=== PATIENT | male | born 1990 | race Caucasian/White ===

== ENCOUNTER 2018-11-04 00:24 | Inpatient (IN) | payer MEDICARE, MEDICAID ==
[2018-11-04] MEDS ORDERED: Sodium Chloride 0.9% 1,000 ML IV ONE (00:37)
[2018-11-04] MEDS ORDERED: HYDROmorphone 1 mg/mL 1mL Syr IV ONE (00:37)
--- NOTE | 2018-11-04 00:39 | ED Physician Chart ---
ED Chief Complaint/HPI - Patient Information Date Seen:: 11/04/18 Time Seen:: 00:30 Chief Complaint:: Abdominal Pain History of Present Illness:: onset x one day of abdominal pain, N/V/D; pt denies trauma, H/As, neck pain, C/P , SOB, A/C, fever, chills, or urinary s/s Allergies:: Allergies Allergy/AdvReac Type Severity Reaction Status Date / Time diazepam [From Valium] Allergy Verified 11/04/18 00:34 fentanyl Allergy Verified 11/04/18 00:34 haloperidol [From Haldol] Allergy Verified 11/04/18 00:34 ketorolac [From Toradol] Allergy Verified 11/04/18 00:34 morphine Allergy Verified 11/04/18 00:34 Historian:: Patient Review:: Nurse's Note Reviewed, Old Chart Reviewed ED Review of Systems - Review of Systems General/Constitutional: No fever, No chills, No weight loss, No weakness, No diaphoresis, No edema, No loss of appetite Skin: No skin lesions, No rash, No bruising Head: No headache, No light-headedness Eyes: No loss of vision, No pain, No diplopia ENT: No earache, No nasal drainage, No sore throat, No tinnitus Neck: No neck pain, No swelling, No thyromegaly, No stiffness, No mass noted Cardio Vascular: No chest pain, No palpitations, No PND, No orthopnea, No edema Pulmonary: No SOB, No cough, No sputum, No wheezing GI: Nausea, Vomiting, Diarrhea, Pain, No melena, No hematochezia, No constipation, No hematemesis G/U: No dysuria, No frequency, No hematuria, No nacturia Musculoskeletal: No bone or joint pain, No back pain, No muscle pain Endocrine: No polyuria, No polydipsia Psychiatric: No prior psych history, No depression, No anxiety, No suicidal ideation, No homicidal ideation, No auditory hallucination, No visual hallucination Hematopoietic: No bruising, No lymphadenopathy Allergic/Immuno: No urticaria, No angioedema Neurological: No syncope, No focal symptoms, No weakness, No paresthesia, No headache, No seizure, No dizziness, No confusion, No vertigo ED Past Medical History - Past Medical History Obtainable: Yes Past Medical History: HTN, DM, Dyslipidemia, ESRD Family History: Diabetes Melitus, HTN Social History: Smoker, Alcohol, No Drug Use, Single Surgical History: None Psychiatricy History: None Medication: Reviewed Family Medical History - Family Member Mother History Unknown: Yes ED Physical Exam - Physical Examination General/Constitutional: Awake, Well-developed, well-nourished, Alert, No distress, GCS 15, Non-toxic appearing, Ambulatory Head: Atraumatic Eyes: Lids, conjuctiva normal, PERRL, EOMI Skin: Nl inspection, No rash, No skin lesions, No ecchymosis, Well hydrated, No lymphadenopathy ENMT: External ears, nose nl, TM canals nl, Nasal exam nl, Lips, teeth, gums nl , Oropharynx nl, Tonsils nl Neck: Nontender, Full ROM w/o pain, No JVD, No nuchal rigidity, No bruit, No mass, No stridor Other Neck comments:: supple; no meningeal signs; no cervical tenderness; no bruits Respiratory: Nl effort/Exclusion, Clear to Auscultation, No Wheeze/Rhonchi/Rales Cardio Vascular: RRR, No murmur, gallop, rubs, NL S1 S2, Carotid/Femoral/Distal pulses equal bilaterally GI: No tenderness/rebounding/guarding, No organomegaly, No hernia, Normal BS's, Nondistended, No mass/bruits, No McBurney tenderness Other GI comments:: no pulsatile masses : No CVA tenderness Extremities: No tenderness or effusion, Full ROM, normal strength in all extremities, No edema, Normal digits & nails Neuro/Psych: Alert/oriented, DTR's symmetric, Normal sensory exam, Normal motor strength, Judgement/insight normal, Mood normal, Normal gait, No focal deficits Misc: Normal back, No paraspinal tenderness ED Labs/Radiology/EKG Results - Lab Results Comments:: Reviewed - Radiology Results Comments:: CXR: CM; CHF - EKG Interpretations EKG Time:: 01:02 Rate & Rhythm: 76; NSR Comments:: LVH; non-specific st-t changes ED Septic Shock - . Is Septic Shock (SBP<90, OR Lactate>4 mmol\L) present?: No ED Reassessment (Disposition) - Reassessment Reassessment Condition:: Improved - Diagnosis Diagnosis:: Abdominal Pain; N/V/D; AGE; ESRD; DM; HTN; CHF; Uncontrolled HTN - Aftercare/Follow up Instructions Aftercare/Follow-Up Instructions:: Counseled pt regarding lab results/diagnosis & need follow up, Counseled pt & family regarding lab results/diagnosis & need follow up - Patient Disposition Discharge/Transfer:: Acute Care w/in this hosp Accepting Physician:: Dr. Johnson Time Called:: 0200 Time Responded:: 02:00 Admitted to:: Telemetry Spoke to:: Dr. Johnson Admitting Medical Physician:: Dr. Johnson Condition at Disposition:: Stable, Improved
[2018-11-04] MEDS ORDERED: HYDROmorphone 1 mg/mL 1mL Syr ONE (00:46)
[2018-11-04] MEDS ORDERED: NITROGLYCERIN OINT 2% 1 INCH PACKET TP STA (00:57)
[2018-11-04 01:00] LABS: % BASOPHILS 0.6 % (0.0-2.0); % EOSINOPHILS 0.4 % (0.0-5.0); % LYMPHOCYTES 21.5 % (20.0-50.0); % MONOCYTES 7.4 % (2.0-10.0); % NEUTROPHILS 70.1 % (40.0-80.0); BASOPHILE ABSOLUTE 0.1 Th/cumm (0-0.2); HEMATOCRIT 33.6 % (41.0-60); HEMOGLOBIN 11.1 gm/dL (12-16); LYMPHOCYTE ABSOLUTE 2.1 Th/cmm (1.5-3.0); MEAN CORPUSCULAR HEMOGLOBIN 30.3 pg (26.0-30.0); MEAN CORPUSCULAR HGB CONC 32.9 pg (28.0-36.0); MEAN PLATELET VOLUME 7.7 fl; MONOCYTE ABSOLUTE 0.7 Th/cmm (0.3-1.0); NEUTROPHILE ABSOLUTE 6.8 Th/cmm (1.8-8.0); PLATELET COUNT 281 Th/cmm (150-400); RED BLOOD COUNT 3.65 Mil/cmm (4.30-5.70); RED CELL DISTRIBUTION WIDTH 14.3 % (11.5-20.0); WHITE BLOOD COUNT 9.7 Th/cmm (4.8-10.8)
[2018-11-04] MEDS ORDERED: NITROGLYCERIN OINT 2% 1 INCH PACKET TP ONE (01:03)
[2018-11-04 01:17] LABS: AMYLASE SERUM 32 U/L (29-103); LIPASE 20 U/L (11-82)
[2018-11-04 01:19] LABS: ALB/GLOB RATIO 1.3 (1.0-1.8); ALBUMIN 4.4 gm/dL (4.2-5.5); ANION GAP 23.6 (7.0-16.0); BILIRUBIN,TOTAL 0.5 mg/dL (0.3-1.0); CALCIUM SERUM 9.2 mg/dL (8.6-10.3); CARBON DIOXIDE 22.2 mEq/L (21.0-31.0); GFR AFRICAN-AMERICAN 8.8 ml/min (>90); GFR NON AFRICAN-AMERICAN 7.3 ml/min; POTASSIUM SERUM 4.8 mEq/L (3.5-5.1); TOTAL PROTEIN,SERUM 7.9 gm/dL (6.0-8.3)
[2018-11-04 01:21] LABS: CREATININE - SERUM 9.1 mg/dL (0.7-1.3); INR 0.96 (0.5-1.4)
[2018-11-04 03:35] VITALS: BP 217/125
[2018-11-04] MEDS: HYDROmorphone 1 mg/mL 1mL Syr IVP PRN ×5 (04:02→20:37)
[2018-11-04] MEDS ORDERED: Pneumococcal Vaccine 0.5 mL Vial IM ONE (05:49)
[2018-11-04] MEDS ORDERED: GLUCAGON HCl 1 MG KIT IM PRN (09:01)
[2018-11-04] MEDS ORDERED: Dextrose 50% 50 mL Abboject IVP PRN (09:01)
--- NOTE | 2018-11-04 09:03 | Diagnostic Imaging Report ---
Exam: Chest x-ray HISTORY: Congestion Findings: Frontal examination of chest reviewed, no prior studies available comparison. The study demonstrates cardiomegaly with superimposed congestive heart failure changes. The costophrenic angles are clear, no acute pulmonic tracer identified. Left subclavian catheter terminates in superior vena cava. Bony thorax is intact. IMPRESSION: Cardiomegaly, congestive heart failure.
--- NOTE | 2018-11-04 09:13 | History and Physical ---
History of Present Illness - HPI Chief Complaint: Abdominal pain, nausea and vomit HPI: Patient refer that x one day he has having upper abdominal pain, nausea and vomit. During ER evaluation high BP was found Vital Signs: Last Vital Signs Temp 98.1 F 11/04/18 04:30 Pulse 72 11/04/18 08:18 Resp 18 11/04/18 04:30 BP 183/106 11/04/18 04:30 Pulse Ox 99 11/04/18 04:30 Past Medical History Cardiovascular: Report: CAD, HTN Pulmonary: Report: No Pertinent Hx PLANNING INTERN: Report: No Pertinent Hx GI: Report: Gastritis Psych: Report: No Pertinent Hx Musculoskeletal: Report: No Pertinent Hx Rheumatologic: Report: No pertinent Hx Infectious Disease: Report: No Pertinent Hx Renal/: Report: Chronic Renal Insuff (on HD) Endocrine: Report: Diabetes Dermatology: Report: No Pertinent Hx - Past Surgical History Past Surgical History: No pertinent Hx Family Medical History - Family Member Mother History Unknown: Yes Social History Smoke: No Alcohol: None Drugs: Other (Addicted to prescribed medication (opiates)) Lives: With Family Domestic Violence: Negative - Medications Home Medications: Home Medication Medication Instructions Recorded Type HYDROmorphone [Dilaudid*] 2 mg PO Q4HR PRN 11/04/18 History Metoprolol Tartrate 50 mg PO DAILY 11/04/18 History Ondansetron [Zofran ODT] 4 mg PO Q6HR PRN 11/04/18 History Pantoprazole [Protonix] 40 mg PO DAILY 11/04/18 History Sitagliptin Phosphate [Januvia] 25 mg PO DAILY 11/04/18 History - Allergies Allergies/Adverse Reactions: Allergies Allergy/AdvReac Type Severity Reaction Status Date / Time diazepam [From Valium] Allergy Verified 11/04/18 00:34 fentanyl Allergy Verified 11/04/18 00:34 haloperidol [From Haldol] Allergy Verified 11/04/18 00:34 ketorolac [From Toradol] Allergy Verified 11/04/18 00:34 morphine Allergy Verified 11/04/18 00:34 Review of Systems - Review of Systems Constitutional: Report: Weakness Eyes: Report: Other (Patient is legally bliond) ENT: Report: No Significant Respiratory: Report: No Significant Cardiovascular: Report: No Significant Gastrointestinal: Report: Abdominal Pain Genitourinary: Report: Other (ESRD) Musculoskeletal: Report: No Significant Skin: Report: No Significant Neurological: Report: No Significant Physical Exam - Physical Exam HEENT: Report: Other (Patient is blind) Neck: Report: Within normal limits Cardiovascular Systems: Report: Regular, Rate and Rhythm Respiratory: Report: Breath Sounds are within normal limits Abdomen: Report: Tender to palpation, Other (in epigastry) Back: Report: Inspection of back is within normal limits. Extremities: Report: Non-tender to palpation. Skin: Report: Color of skin is within normal limits Neuro/Psych: Report: Mood affect is within normal limits - Lab Results All Lab Results last 24 hours: Laboratory Results - last 24 hr 11/04/18 11/04/18 11/04/18 00:45 00:45 00:45 WBC 9.7 RBC 3.65 L Hgb 11.1 L Hct 33.6 L MCV 92.0 MCH 30.3 H MCHC Differential 32.9 RDW 14.3 Plt Count 281 MPV 7.7 Neutrophils % 70.1 Lymphocytes % 21.5 Monocytes % 7.4 Eosinophils % 0.4 Basophils % 0.6 PT 10.0 INR 0.96 Sodium 132 L Potassium 4.8 Chloride 91 L Carbon Dioxide 22.2 Anion Gap 23.6 H BUN 43 H Creatinine 9.1 H* Est GFR ( Amer) 8.8 Est GFR (Non-Af Amer) 7.3 BUN/Creatinine Ratio 4.7 Glucose 140 H Calcium 9.2 Total Bilirubin 0.5 AST 8 L ALT 7 Alkaline Phosphatase 153 H Creatine Kinase 33 Troponin I B-Natriuretic Peptide Total Protein 7.9 Albumin 4.4 Globulin 3.5 Albumin/Globulin Ratio 1.3 Triglycerides 150 Cholesterol 135 LDL Cholesterol Direct 91 HDL Cholesterol 31 Amylase Lipase 11/04/18 11/04/18 11/04/18 00:45 00:45 00:45 WBC RBC Hgb Hct MCV MCH MCHC Differential RDW Plt Count MPV Neutrophils % Lymphocytes % Monocytes % Eosinophils % Basophils % PT INR Sodium Potassium Chloride Carbon Dioxide Anion Gap BUN Creatinine Est GFR ( Amer) Est GFR (Non-Af Amer) BUN/Creatinine Ratio Glucose Calcium Total Bilirubin AST ALT Alkaline Phosphatase Creatine Kinase Troponin I 0.02 B-Natriuretic Peptide 769.0 H Total Protein Albumin Globulin Albumin/Globulin Ratio Triglycerides Cholesterol LDL Cholesterol Direct HDL Cholesterol Amylase 32 Lipase 20 - Assessment Assessment: Patient is awake, alert, in some distress due to pain. Dx: Uncontrolled BP, Gastritis, ESRD on HD, DM, Blind - Plan Plan: Patient is in clonidine and amlodipine, Pantoprazole IV, Dilaudid, Insulin sliding scale, consult with Nephrology request for HD. Will continue to monitor
--- NOTE | 2018-11-04 10:19 | Diagnostic Imaging Report ---
Exam: CT examination abdomen pelvis. HISTORY: Abdominal pain Total DLP equals 920 CTDI equals 17.3 Findings: Multiple contiguous thin section of the abdomen pelvis obtained from lower thorax to pubic symphysis without the administration of oral or intravenous contrast material therefore the study somewhat limited The study demonstrates normal aeration of lung parenchyma the bases. The liver and spleen are intact. The gallbladder is distended. The kidneys demonstrate no evidence of obstructive uropathy or nephrolithiasis. Renal vascular calcifications are noted. The pancreas is intact. The appendix is normal. There is evidence of diverticulosis of the colon without diverticulitis. No free fluid is noted. The urinary bladder demonstrates thickening of the urinary bladder wall most likely due to underdistention. Deformity of left femoral head appreciated. IMPRESSION: Diverticulosis of colon, no evidence of diverticulitis. No evidence of obstructive uropathy. Appendix is intact.
[2018-11-04] MEDS: INSULIN LISPRO SLIDING SCALE 100 UNITS/ML UNIT SUBQ SCH ×2 (12:25→19:05)
[2018-11-04] MEDS ORDERED: Heparin Sod 1,000 Units/mL 10ml HD ONE (20:00)
[2018-11-05] MEDS: HYDROmorphone 1 mg/mL 1mL Syr IVP PRN ×6 (00:26→20:12)
[2018-11-05] MEDS: INSULIN LISPRO SLIDING SCALE 100 UNITS/ML UNIT SUBQ SCH ×4 (00:26→18:31)
[2018-11-05 06:34] LABS: % BASOPHILS 0.7 % (0.0-2.0); % EOSINOPHILS 0.7 % (0.0-5.0); % LYMPHOCYTES 23.2 % (20.0-50.0); % MONOCYTES 7.8 % (2.0-10.0); % NEUTROPHILS 67.6 % (40.0-80.0); HEMATOCRIT 30.8 % (41.0-60); HEMOGLOBIN 10.5 gm/dL (12-16); LYMPHOCYTE ABSOLUTE 1.6 Th/cmm (1.5-3.0); MEAN CELL VOLUME 93.7 fl (80-99); MEAN CORPUSCULAR HEMOGLOBIN 31.8 pg (26.0-30.0); MEAN CORPUSCULAR HGB CONC 33.9 pg (28.0-36.0); MEAN PLATELET VOLUME 7.4 fl; MONOCYTE ABSOLUTE 0.5 Th/cmm (0.3-1.0); NEUTROPHILE ABSOLUTE 4.8 Th/cmm (1.8-8.0); PLATELET COUNT 260 Th/cmm (150-400); RED BLOOD COUNT 3.29 Mil/cmm (4.30-5.70); RED CELL DISTRIBUTION WIDTH 13.9 % (11.5-20.0); WHITE BLOOD COUNT 6.9 Th/cmm (4.8-10.8)
[2018-11-05 06:58] LABS: ALB/GLOB RATIO 1.2 (1.0-1.8); ALBUMIN 3.7 gm/dL (4.2-5.5); ANION GAP 16.6 (7.0-16.0); BILIRUBIN,TOTAL 0.5 mg/dL (0.3-1.0); CALCIUM SERUM 8.8 mg/dL (8.6-10.3); CARBON DIOXIDE 28.8 mEq/L (21.0-31.0); GFR AFRICAN-AMERICAN 11.8 ml/min (>90); GFR NON AFRICAN-AMERICAN 9.7 ml/min; POTASSIUM SERUM 4.4 mEq/L (3.5-5.1); TOTAL PROTEIN,SERUM 6.7 gm/dL (6.0-8.3)
[2018-11-05 07:19] LABS: CREATININE - SERUM 7.1 mg/dL (0.7-1.3)
--- NOTE | 2018-11-05 08:39 | Consultation ---
Consult Note - Consult Note Service Date: 11/05/18 Consult Note: PHYSICIAN Consultation Note: Date of Admission: 11/04/18 Purpose of Consultation: ESRD Chief Complaint: Abdominal pain History of Present Illness: Patient BJ DAVENPORT was admitted to [facility] Telemetry with UNCONTROLLED HYPERTENSION. 28 YO M with hx of ESRD on HD, DM, gastroparesis, chronic pain presenting with abdominal pain, nausea, vomiting for the past day. Patient has had history for several admissions for uncontrolled hypertension as well as abdominal pain. Patient currently on dialysis TTS at [facility]. He received dialysis yesterday, Past Medical History: Diagnoses TYPE 2 DIABETES MELLITUS WITHOUT COMPLICATIONS (11/04/18) UNSPECIFIED VISUAL LOSS (11/04/18) ESSENTIAL (PRIMARY) HYPERTENSION (11/04/18) GASTRITIS, UNSPECIFIED, WITHOUT BLEEDING (11/04/18) END STAGE RENAL DISEASE (11/04/18) WEAKNESS (11/04/18) DEPENDENCE ON RENAL DIALYSIS (11/04/18) Allergies Allergy/AdvReac Type Severity Reaction Status Date / Time diazepam [From Valium] Allergy Verified 11/04/18 00:34 fentanyl Allergy Verified 11/04/18 00:34 haloperidol [From Haldol] Allergy Verified 11/04/18 00:34 ketorolac [From Toradol] Allergy Verified 11/04/18 00:34 morphine Allergy Verified 11/04/18 00:34 Vital Signs Temp 98.2 F 11/05/18 00:00 Pulse 68 11/05/18 08:18 Resp 18 11/05/18 04:00 BP 200/114 11/05/18 08:18 Pulse Ox 99 11/05/18 00:00 Intake & Output 11/04/18 11/05/18 11/05/18 18:59 06:59 18:59 Intake Total 480 340 Output Total 0 Balance 480 340 Weight (lbs) 119.748 kg 118.388 kg Intake: Oral 480 340 Output: Urine 0 Other: # Voids 3 # Bowel Movements 0 0 Weight Source Bedscale Bedscale Laboratory Results - last 24 hr 11/04/18 11/04/18 11/04/18 12:21 19:03 23:28 WBC RBC Hgb Hct MCV MCH MCHC Differential RDW Plt Count MPV Neutrophils % Lymphocytes % Monocytes % Eosinophils % Basophils % Sodium Potassium Chloride Carbon Dioxide Anion Gap BUN Creatinine Est GFR ( Amer) Est GFR (Non-Af Amer) BUN/Creatinine Ratio Glucose POC Glucose 122 H 123 H 117 H Calcium Total Bilirubin AST ALT Alkaline Phosphatase Total Protein Albumin Globulin Albumin/Globulin Ratio 11/05/18 11/05/18 11/05/18 06:17 06:20 06:20 WBC 6.9 RBC 3.29 L Hgb 10.5 L Hct 30.8 L MCV 93.7 MCH 31.8 H MCHC Differential 33.9 RDW 13.9 Plt Count 260 MPV 7.4 Neutrophils % 67.6 Lymphocytes % 23.2 Monocytes % 7.8 Eosinophils % 0.7 Basophils % 0.7 Sodium 136 Potassium 4.4 Chloride 95 L Carbon Dioxide 28.8 Anion Gap 16.6 H BUN 26 H Creatinine 7.1 H* Est GFR ( Amer) 11.8 Est GFR (Non-Af Amer) 9.7 BUN/Creatinine Ratio 3.7 Glucose 158 H POC Glucose 144 H Calcium 8.8 Total Bilirubin 0.5 AST 8 L ALT 6 L Alkaline Phosphatase 131 H Total Protein 6.7 Albumin 3.7 L Globulin 3.0 Albumin/Globulin Ratio 1.2 Home Medication Medication Instructions Recorded Type HYDROmorphone [Dilaudid*] 2 mg PO Q4HR PRN 11/04/18 History Metoprolol Tartrate 50 mg PO DAILY 11/04/18 History Ondansetron [Zofran ODT] 4 mg PO Q6HR PRN 11/04/18 History Pantoprazole [Protonix] 40 mg PO DAILY 11/04/18 History Sitagliptin Phosphate [Januvia] 25 mg PO DAILY 11/04/18 History Current Medications Generic Name Dose Route Start Last Admin Trade Name Freq PRN Reason Stop Dose Admin Amlodipine Besylate 10 mg 11/04/18 09:00 11/05/18 08:18 Norvasc PO 01/03/19 08:59 10 mg DAILY MIRANDA Administration Dextrose 50 ml 11/04/18 09:01 D50w IVP 01/03/19 09:00 PRN PRN Blood Glucose less than 70 Dextrose 18.75 gm 11/04/18 09:01 Glutose 40% PO 01/03/19 09:00 UD PRN Blood Glucose less than 70 Glucagon 1 mg 11/04/18 09:01 Glucagen IM 01/03/19 09:00 PRN PRN Blood Glucose less than 70 Hydromorphone HCl 1 mg 11/04/18 01:57 11/05/18 08:26 Dilaudid IVP 01/03/19 01:59 1 mg Q4H PRN Administration Pain (Severe) Insulin Human Lispro 0 units 11/04/18 12:00 11/05/18 06:29 Humalog Insulin Sliding Scale SUBQ 01/03/19 11:59 Not Given Q6HR MIRANDA Protocol Ondansetron HCl 4 mg 11/04/18 01:57 11/05/18 08:25 Zofran IV 01/03/19 01:59 4 mg Q4H PRN Administration Nausea Pantoprazole Sodium 40 mg 11/04/18 09:15 11/05/18 08:18 Protonix IVP 01/03/19 09:14 40 mg DAILY MIRANDA Administration Review of Systems: A 12 point ROS was reviewed with the pertinent positive and negatives noted in the HPI. Social History Smoking Status Smoker, status unknown Family Medical History Family Medical History Start: 11/04/18 02: 37 Freq: ONCE Status: Active Protocol: Document 11/04/18 02:55 MARIAH (Rec: 11/04/18 03:52 MARIAH [id number]) Family Medical History Mother History Unknown Yes Physical Exam: General: Weak HEENT: Membranes moist Neck: Supple Cardio: RRR Respiratory: Decreased Abdominal: Tender Extremities: No edema Neurological: non focal Assessment: 1. Abdominal pain seconddary to diabetic gastroparesis 2. ESRD on HD 3. Hypertension, elevated 4. Anemia of chronic renal disease 5. DM I with renal manifestation 6. DM retinopathy 7. Chronic pain Plan: -Continue pain control, advance diet as tolerated -Additional HD today -Add Clonidine 0.1mg TID for HTN Thank you Dr. Johnson for this consult, we will continue to follow daily Signed, Ganesh Muller [id number]
--- NOTE | 2018-11-05 08:56 | General Progress Note ---
Subjective - Review of Systems Service Date: 11/05/18 Subjective: Pain is less Objective - Results Result Diagrams: 11/06/18 06:00 11/06/18 06:00 Recent Labs: Laboratory Last Values WBC 6.9 Th/cmm (4.8-10.8) 11/05/18 06:20 RBC 3.29 Mil/cmm (4.30-5.70) L 11/05/18 06:20 Hgb 10.5 gm/dL (12-16) L 11/05/18 06:20 Hct 30.8 % (41.0-60) L 11/05/18 06:20 MCV 93.7 fl (80-99) 11/05/18 06:20 MCH 31.8 pg (26.0-30.0) H 11/05/18 06:20 MCHC Differential 33.9 pg (28.0-36.0) 11/05/18 06:20 RDW 13.9 % (11.5-20.0) 11/05/18 06:20 Plt Count 260 Th/cmm (150-400) 11/05/18 06:20 MPV 7.4 fl 11/05/18 06:20 Neutrophils % 67.6 % (40.0-80.0) 11/05/18 06:20 Lymphocytes % 23.2 % (20.0-50.0) 11/05/18 06:20 Monocytes % 7.8 % (2.0-10.0) 11/05/18 06:20 Eosinophils % 0.7 % (0.0-5.0) 11/05/18 06:20 Basophils % 0.7 % (0.0-2.0) 11/05/18 06:20 PT 10.0 SECONDS (9.5-11.5) 11/04/18 00:45 INR 0.96 (0.5-1.4) 11/04/18 00:45 Sodium 136 mEq/L (136-145) 11/05/18 06:20 Potassium 4.4 mEq/L (3.5-5.1) 11/05/18 06:20 Chloride 95 mEq/L (98-107) L 11/05/18 06:20 Carbon Dioxide 28.8 mEq/L (21.0-31.0) 11/05/18 06:20 Anion Gap 16.6 (7.0-16.0) H 11/05/18 06:20 BUN 26 mg/dL (7-25) H 11/05/18 06:20 Creatinine 7.1 mg/dL (0.7-1.3) H* 11/05/18 06:20 Est GFR ( Amer) 11.8 ml/min (>90) 11/05/18 06:20 Est GFR (Non-Af Amer) 9.7 ml/min 11/05/18 06:20 BUN/Creatinine Ratio 3.7 11/05/18 06:20 Glucose 158 mg/dL (70-105) H 11/05/18 06:20 POC Glucose 144 MG/DL (70 - 105) H 11/05/18 06:17 Calcium 8.8 mg/dL (8.6-10.3) 11/05/18 06:20 Total Bilirubin 0.5 mg/dL (0.3-1.0) 11/05/18 06:20 AST 8 U/L (13-39) L 11/05/18 06:20 ALT 6 U/L (7-52) L 11/05/18 06:20 Alkaline Phosphatase 131 U/L (34-104) H 11/05/18 06:20 Creatine Kinase 33 U/L (30-223) 11/04/18 00:45 Troponin I 0.02 ng/mL (0.01-0.05) 11/04/18 00:45 B-Natriuretic Peptide 769.0 pg/mL (5.0-100.0) H 11/04/18 00:45 Total Protein 6.7 gm/dL (6.0-8.3) 11/05/18 06:20 Albumin 3.7 gm/dL (4.2-5.5) L 11/05/18 06:20 Globulin 3.0 gm/dL 11/05/18 06:20 Albumin/Globulin Ratio 1.2 (1.0-1.8) 11/05/18 06:20 Triglycerides 150 mg/dL (<150) 11/04/18 00:45 Cholesterol 135 mg/dL (<200) 11/04/18 00:45 LDL Cholesterol Direct 91 mg/dL (75-193) 11/04/18 00:45 HDL Cholesterol 31 mg/dL (23-92) 11/04/18 00:45 Amylase 32 U/L (29-103) 11/04/18 00:45 Lipase 20 U/L (11-82) 11/04/18 00:45 - Physical Exam Vitals and I&O: Vital Signs Temp 98.2 F 11/05/18 00:00 Pulse 68 11/05/18 08:18 Resp 18 11/05/18 04:00 BP 200/114 11/05/18 08:18 Pulse Ox 99 11/05/18 00:00 Intake & Output 11/04/18 11/05/18 11/05/18 18:59 06:59 18:59 Intake Total 480 340 Output Total 0 Balance 480 340 Weight (lbs) 119.748 kg 118.388 kg Intake: Oral 480 340 Output: Urine 0 Other: # Voids 3 # Bowel Movements 0 0 Weight Source Bedscale Bedscale Active Medications: Current Medications Amlodipine Besylate (Norvasc) 10 mg PO DAILY [facility] Stop: 01/03/19 08:59 Last Admin: 11/05/18 08:18 Dose: 10 mg Dextrose (D50w) 50 ml IVP PRN PRN PRN Reason: Blood Glucose less than 70 Stop: 01/03/19 09:00 Dextrose (Glutose 40%) 18.75 gm PO UD PRN PRN Reason: Blood Glucose less than 70 Stop: 01/03/19 09:00 Glucagon (Glucagen) 1 mg IM PRN PRN PRN Reason: Blood Glucose less than 70 Stop: 01/03/19 09:00 Hydromorphone HCl (Dilaudid) 1 mg IVP Q4H PRN PRN Reason: Pain (Severe) Stop: 01/03/19 01:59 Last Admin: 11/05/18 08:26 Dose: 1 mg Insulin Human Lispro (Humalog Insulin Sliding Scale) 0 units SUBQ Q6HR [facility]; Protocol Stop: 01/03/19 11:59 Last Admin: 11/05/18 06:29 Dose: Not Given Ondansetron HCl (Zofran) 4 mg IV Q4H PRN PRN Reason: Nausea Stop: 01/03/19 01:59 Last Admin: 11/05/18 08:25 Dose: 4 mg Pantoprazole Sodium (Protonix) 40 mg IVP DAILY [facility] Stop: 01/03/19 09:14 Last Admin: 11/05/18 08:18 Dose: 40 mg General: Alert, Oriented x3, No acute distress HEENT: Atraumatic Cardiovascular: Regular rate Lungs: Clear to auscultation Abdomen: Bowel sounds, Soft, Other (Tender in epygastri) Extremities: Other (No edema) Neurological: Other (Unstable gait) Skin: Other (Warm) Psych/Mental Status: Mental status NL Assessment/Plan - Assessment Assessment: Patient is awake, alert, in no distress. BP continue high. Dx: Uncontrolled BP, Gastritis, ESRD on HD, DM, Blind, CHF - Plan Plan: Patient is in clonidine and amlodipine, Pantoprazole IV, Dilaudid, Insulin sliding scale, Follow by Nephrology. Case discussed with nephrology and one extra HD will be done today. Will continue to monitor
[2018-11-05 13:21] LABS: URINE SOURCE CLEAN C
[2018-11-05 13:22] LABS: URINE BILIRUBIN NEGATIVE (NEGATIVE); URINE BLOOD NEGATIVE (NEGATIVE); URINE GLUCOSE (UA) 250 mg/dL (NEGATIVE); URINE KETONE NEGATIVE (NEGATIVE); URINE LEUKOCYTE ESTERASE NEGATIVE (NEGATIVE); URINE NITRATE NEGATIVE (NEGATIVE); URINE PROTEIN >=300 mg/dL (NEGATIVE); URINE UROBILINOGEN 0.2 E.U./dL (0.2 - 1.0)
[2018-11-05 13:33] LABS: URINE CLARITY HAZY (CLEAR); URINE COLOR YELLOW; URINE MICROSCOPIC INDICATED? YES
[2018-11-05 13:34] LABS: URINE BACTERIA FEW /hpf (NONE SEEN); URINE EPITHELIAL CELLS MODERATE /lpf (FEW); URINE RBC 0-2 /hpf (0-5)
[2018-11-06] MEDS: HYDROmorphone 1 mg/mL 1mL Syr IVP PRN ×4 (00:01→12:03)
[2018-11-06] MEDS: INSULIN LISPRO SLIDING SCALE 100 UNITS/ML UNIT SUBQ SCH ×2 (00:03→06:13)
[2018-11-06 06:32] LABS: % BASOPHILS 0.9 % (0.0-2.0); % EOSINOPHILS 0.9 % (0.0-5.0); % LYMPHOCYTES 28.6 % (20.0-50.0); % MONOCYTES 9.6 % (2.0-10.0); BASOPHILE ABSOLUTE 0.1 Th/cumm (0-0.2); EOSINOPHILE ABSOLUTE 0.1 Th/cmm (0.1-0.4); HEMATOCRIT 32.7 % (41.0-60); HEMOGLOBIN 10.7 gm/dL (12-16); LYMPHOCYTE ABSOLUTE 2.3 Th/cmm (1.5-3.0); MEAN CELL VOLUME 94.4 fl (80-99); MEAN CORPUSCULAR HEMOGLOBIN 30.8 pg (26.0-30.0); MEAN CORPUSCULAR HGB CONC 32.6 pg (28.0-36.0); MEAN PLATELET VOLUME 7.5 fl; MONOCYTE ABSOLUTE 0.8 Th/cmm (0.3-1.0); NEUTROPHILE ABSOLUTE 4.9 Th/cmm (1.8-8.0); PLATELET COUNT 310 Th/cmm (150-400); RED BLOOD COUNT 3.46 Mil/cmm (4.30-5.70); WHITE BLOOD COUNT 8.2 Th/cmm (4.8-10.8)
[2018-11-06 07:11] LABS: ALB/GLOB RATIO 1.2 (1.0-1.8); ALBUMIN 3.8 gm/dL (4.2-5.5); ANION GAP 14.4 (7.0-16.0); BILIRUBIN,TOTAL 0.5 mg/dL (0.3-1.0); CALCIUM SERUM 8.9 mg/dL (8.6-10.3); CARBON DIOXIDE 29.8 mEq/L (21.0-31.0); GFR AFRICAN-AMERICAN 13.2 ml/min (>90); GFR NON AFRICAN-AMERICAN 10.9 ml/min; POTASSIUM SERUM 4.2 mEq/L (3.5-5.1); TOTAL PROTEIN,SERUM 6.9 gm/dL (6.0-8.3)
[2018-11-06 07:33] LABS: CREATININE - SERUM 6.4 mg/dL (0.7-1.3)
--- NOTE | 2018-11-06 09:16 | Discharge Summary ---
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 Laboratory Findings: Laboratory Results - last 24 hr 11/05/18 11/05/18 11/05/18 12:33 13:05 17:42 WBC RBC Hgb Hct MCV MCH MCHC Differential RDW Plt Count MPV Neutrophils % Lymphocytes % Monocytes % Eosinophils % Basophils % Sodium Potassium Chloride Carbon Dioxide Anion Gap BUN Creatinine Est GFR ( Amer) Est GFR (Non-Af Amer) BUN/Creatinine Ratio Glucose POC Glucose 114 H 162 H Calcium Total Bilirubin AST ALT Alkaline Phosphatase Total Protein Albumin Globulin Albumin/Globulin Ratio Urine Source CLEAN C Urine Color YELLOW Urine Clarity HAZY Urine pH 8.0 Ur Specific [place] 1.015 Urine Protein >=300 Urine Glucose (UA) 250 H Urine Ketones NEGATIVE Urine Blood NEGATIVE Urine Nitrate NEGATIVE Urine Bilirubin NEGATIVE Urine Urobilinogen 0.2 Ur Leukocyte Esterase NEGATIVE Urine RBC 0-2 H Urine WBC 2-5 Ur Epithelial Cells MODERATE Urine Bacteria FEW 11/05/18 11/06/18 11/06/18 23:55 05:59 06:00 WBC 8.2 RBC 3.46 L Hgb 10.7 L Hct 32.7 L MCV 94.4 MCH 30.8 H MCHC Differential 32.6 RDW 14.0 Plt Count 310 MPV 7.5 Neutrophils % 60.0 Lymphocytes % 28.6 Monocytes % 9.6 Eosinophils % 0.9 Basophils % 0.9 Sodium Potassium Chloride Carbon Dioxide Anion Gap BUN Creatinine Est GFR ( Amer) Est GFR (Non-Af Amer) BUN/Creatinine Ratio Glucose POC Glucose 161 H 114 H Calcium Total Bilirubin AST ALT Alkaline Phosphatase Total Protein Albumin Globulin Albumin/Globulin Ratio Urine Source Urine Color Urine Clarity Urine pH Ur Specific [place] Urine Protein Urine Glucose (UA) Urine Ketones Urine Blood Urine Nitrate Urine Bilirubin Urine Urobilinogen Ur Leukocyte Esterase Urine RBC Urine WBC Ur Epithelial Cells Urine Bacteria 11/06/18 06:00 WBC RBC Hgb Hct MCV MCH MCHC Differential RDW Plt Count MPV Neutrophils % Lymphocytes % Monocytes % Eosinophils % Basophils % Sodium 135 L Potassium 4.2 Chloride 95 L Carbon Dioxide 29.8 Anion Gap 14.4 BUN 19 Creatinine 6.4 H* Est GFR ( Amer) 13.2 Est GFR (Non-Af Amer) 10.9 BUN/Creatinine Ratio 3.0 Glucose 111 H POC Glucose Calcium 8.9 Total Bilirubin 0.5 AST 9 L ALT 5 L Alkaline Phosphatase 125 H Total Protein 6.9 Albumin 3.8 L Globulin 3.1 Albumin/Globulin Ratio 1.2 Urine Source Urine Color Urine Clarity Urine pH Ur Specific [place] Urine Protein Urine Glucose (UA) Urine Ketones Urine Blood Urine Nitrate Urine Bilirubin Urine Urobilinogen Ur Leukocyte Esterase Urine RBC Urine WBC Ur Epithelial Cells Urine Bacteria Hospital Course: Patient respoded to treatment, BP improved, Pain improved, No more nausea and vomit. Treatment: Patient was admitted to Telemetry, Lock heparin, Pantoprazole, Dilaudid , HD was done, continue with home meds, follow by Renal. Condition at Discharge: Stable Disposition: PT DISCHARGED HOME Home Medications: Home Medication Medication Instructions Recorded Type HYDROmorphone [Dilaudid*] 2 mg PO Q4HR PRN 11/04/18 History Metoprolol Tartrate 50 mg PO DAILY 11/04/18 History Ondansetron [Zofran ODT] 4 mg PO Q6HR PRN 11/04/18 History Pantoprazole [Protonix] 40 mg PO DAILY 11/04/18 History Sitagliptin Phosphate [Januvia] 25 mg PO DAILY 11/04/18 History amLODIPine Besylate [Norvasc*] 10 mg PO DAILY #30 tab 11/06/18 Rx cloNIDine HCl [Catapres] 0.1 mg PO Q12HR #30 tab 11/06/18 Rx Inpatient Medications: Current Medications Amlodipine Besylate (Norvasc) 10 mg PO DAILY [facility] Stop: 01/03/19 08:59 Last Admin: 11/05/18 08:18 Dose: 10 mg Dextrose (D50w) 50 ml IVP PRN PRN PRN Reason: Blood Glucose less than 70 Stop: 01/03/19 09:00 Dextrose (Glutose 40%) 18.75 gm PO UD PRN PRN Reason: Blood Glucose less than 70 Stop: 01/03/19 09:00 Glucagon (Glucagen) 1 mg IM PRN PRN PRN Reason: Blood Glucose less than 70 Stop: 01/03/19 09:00 Hydromorphone HCl (Dilaudid) 1 mg IVP Q4H PRN PRN Reason: Pain (Severe) Stop: 01/03/19 01:59 Last Admin: 11/06/18 08:03 Dose: 1 mg Insulin Human Lispro (Humalog Insulin Sliding Scale) 0 units SUBQ Q6HR [facility]; Protocol Stop: 01/03/19 11:59 Last Admin: 11/06/18 06:13 Dose: Not Given Ondansetron HCl (Zofran) 4 mg IV Q4H PRN PRN Reason: Nausea Stop: 01/03/19 01:59 Last Admin: 11/05/18 17:34 Dose: 4 mg Pantoprazole Sodium (Protonix) 40 mg IVP DAILY [facility] Stop: 01/03/19 09:14 Last Admin: 11/05/18 08:18 Dose: 40 mg Prescriptions: cloNIDine HCl [Catapres] 0.1 mg PO Q12HR #30 tab amLODIPine Besylate [Norvasc*] 10 mg PO DAILY #30 tab Activity: As Tolerated Discharge Diet: 2 Gram Sodium Consults and Follow-Up: RADHA HERNANDEZ [Other] not on staff,PCP is [Primary Care Provider] - Consulting Speciality: Renal Instructions: Hypertension, [id number], End-Stage Kidney Disease
== END 2018-11-06 12:05 | disposition home or self-care (01) | DRG 304 ==
LOC: ER 00:24 → TELE 02:17 → OBSVTOIN 02:17 → TELE 21:02 → INTOOBSV 11-05 04:00 → OBSVTOIN 11-05 04:00
PROVIDERS: ADMIT General Practice; ATTEND General Practice
PROC: 5A1D70Z Performance of Urinary Filtration, Intermittent, Less than 6 Hours Per Day (ICD-10-PCS; principal; 2018-11-04)
PROC: 5A1D70Z Performance of Urinary Filtration, Intermittent, Less than 6 Hours Per Day (ICD-10-PCS; 2018-11-05)
DX: I16.9 Hypertensive crisis, unspecified (principal); N18.6 End stage renal disease; I50.42 Chronic combined systolic (congestive) and diastolic (congestive) heart failure; F11.20 Opioid dependence, uncomplicated; K29.70 Gastritis, unspecified, without bleeding; Z99.2 Dependence on renal dialysis; H54.7 Unspecified visual loss; E10.21 Type 1 diabetes mellitus with diabetic nephropathy; E10.319 Type 1 diabetes mellitus with unspecified diabetic retinopathy without macular edema; E10.43 Type 1 diabetes mellitus with diabetic autonomic (poly)neuropathy; K31.84 Gastroparesis; I13.2 Hypertensive heart and chronic kidney disease with heart failure and with stage 5 chronic kidney disease, or end stage renal disease; F17.210 Nicotine dependence, cigarettes, uncomplicated; K52.9 Noninfective gastroenteritis and colitis, unspecified; I25.10 Atherosclerotic heart disease of native coronary artery without angina pectoris; E10.22 Type 1 diabetes mellitus with diabetic chronic kidney disease; D63.1 Anemia in chronic kidney disease
CPT/HCPCS: 36415-UA; 71045-TC; 80053-TC; 80061-TC; 81001-TC; 82150-TC; 82550-TC; 82948-90; 83690-TC; 83880-TC; 84484-TC; 85025-TC; 85610-TC; 90799; 93005; 96374; 96375; 96376; C9113; J1170; J1644; J1940; J2405; J7030; Z7610

== ENCOUNTER 2019-03-07 16:06 | Inpatient (IN) | payer MEDICAID, MEDICARE ==
--- NOTE | 2019-03-07 17:29 | ED Physician Chart ---
ED Chief Complaint/HPI - Patient Information Date Seen:: 03/07/19 Time Seen:: 17:05 Chief Complaint:: Abdominal pain for 2 days. History of Present Illness:: Pt came in by private auto because of onset of upper abdominal pain for 2 days. Abdominal pain is characterized as constant, sharp, and localized at epigastrium. No known relieving factor, but lying down seems to worsen his abdominal pain. No fever. Pt has had intermittent N/V with vomitus consists of gastric content. No hematemesis. Last BM while pt is at the ER that is loose but nonbloody. No recent travel, antibiotic use, or ingestion of contaminated food or liquid. Allergies:: Allergies Allergy/AdvReac Type Severity Reaction Status Date / Time diazepam [From Valium] Allergy Verified 11/04/18 00:34 fentanyl Allergy Verified 11/04/18 00:34 haloperidol [From Haldol] Allergy Verified 11/04/18 00:34 ketorolac [From Toradol] Allergy Verified 11/04/18 00:34 morphine Allergy Verified 11/04/18 00:34 tramadol Allergy Verified 03/07/19 16:47 Vitals:: Vital Signs - 8 hr 03/07/19 16:49 Temp 98.5 F HR 86 RR 22 BP 114/77 O2 Sat % 99 Historian:: Patient Family MD/PCP:: Dr. 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.) ENT: No earache, No sore throat Neck: No neck pain, No swelling, No thyromegaly, No stiffness, No mass noted Cardio Vascular: No chest pain, No edema Pulmonary: No SOB, No cough, No wheezing GI: Nausea, Vomiting, Pain, No melena, No hematochezia, No constipation, No hematemesis, Other (nonbloody loose stool.) G/U: Other (Pt has ESRD with anuria.) Musculoskeletal: No bone or joint pain Psychiatric: No prior psych history Allergic/Immuno: No urticaria, No angioedema Neurological: No syncope, No focal symptoms, No headache, No confusion ED Past Medical History - Past Medical History Past Medical History: HTN, DM, ESRD (on hemodialysis.) Family History: Diabetes Melitus, Cancer (P aunt.) Social History: Non Smoker, No Alcohol, No Drug Use, Single, Lives With Parents Employment:: unemployed. Surgical History: other (Retinal surgery about 5 y/a.) Psychiatricy History: None Medication: Reviewed Family Medical History - Family Member Mother History Unknown: Yes ED Physical Exam - Physical Examination General/Constitutional: Awake, Well-developed, well-nourished (obese male), Alert, Non-toxic appearing Other Gen/Cons comments:: Breathes comfortably, speaks clearly, but is in distress due to abdominal pain. Head: Atraumatic Other Eyes comments:: Both eyes have chronic changes with blindness. Skin: No lymphadenopathy ENMT: External ears, nose nl, Nasal exam nl, Oropharynx nl Neck: Nontender, Full ROM w/o pain, No nuchal rigidity, No mass Respiratory: Nl effort/Exclusion, Clear to Auscultation, No Wheeze/Rhonchi/Rales Cardio Vascular: RRR, No murmur, gallop, rubs GI: No organomegaly, Normal BS's, Nondistended, No mass/bruits, No McBurney tenderness Other GI comments:: Obese but soft. Tenderness to palpation at epigastric region. No R/G. Abdominal exam is limited due to obesity. Neuro/Psych: Alert/oriented (oriented x 3), No focal deficits (except bilateral eye blindness.) ED Labs/Radiology/EKG Results - Lab Results Results: Laboratory Tests 03/07/19 17:10 POC Glucose 169 H Laboratory Results - last 24 hr 03/07/19 03/07/19 03/07/19 17:10 18:10 18:10 WBC 19.9 H RBC 3.67 L Hgb 11.3 L Hct 33.9 L MCV 92.4 MCH 30.9 H MCHC Differential 33.5 RDW 16.2 Plt Count 334 MPV 7.8 Add Manual Diff YES Neutrophils % CDL B DRIVER Band Neutrophils % 4 Lymphocytes % CDL B DRIVER Monocytes % CDL B DRIVER Eosinophils % CDL B DRIVER Basophils % CDL B DRIVER Neutrophils (Manual) 90 H Lymphocytes 4 L Monocytes 2 PT 9.7 INR 0.93 PTT (Actin FS) 28.8 Sodium Potassium Chloride Carbon Dioxide Anion Gap BUN Creatinine Est GFR ( Amer) Est GFR (Non-Af Amer) BUN/Creatinine Ratio Glucose POC Glucose 169 H Whole Bld Lactic Acid Calcium Total Bilirubin AST ALT Alkaline Phosphatase Total Protein Albumin Globulin Albumin/Globulin Ratio Amylase Lipase 03/07/19 03/07/19 18:10 18:10 WBC RBC Hgb Hct MCV MCH MCHC Differential RDW Plt Count MPV Add Manual Diff Neutrophils % Band Neutrophils % Lymphocytes % Monocytes % Eosinophils % Basophils % Neutrophils (Manual) Lymphocytes Monocytes PT INR PTT (Actin FS) Sodium 127 L Potassium 4.8 Chloride 92 L Carbon Dioxide 16.5 L Anion Gap 23.3 H BUN 68 H Creatinine 12.9 H* Est GFR ( Amer) 5.9 Est GFR (Non-Af Amer) 4.9 BUN/Creatinine Ratio 5.3 Glucose 147 H POC Glucose Whole Bld Lactic Acid 1.36 Calcium 8.9 Total Bilirubin 0.5 AST 9 L ALT 6 L Alkaline Phosphatase 136 H Total Protein 8.1 Albumin 4.2 Globulin 3.9 Albumin/Globulin Ratio 1.1 Amylase 28 L Lipase 16 Laboratory Last Values WBC 19.9 Th/cmm (4.8-10.8) H 03/07/19 18:10 RBC 3.67 Mil/cmm (4.30-5.70) L 03/07/19 18:10 Hgb 11.3 gm/dL (12-16) L 03/07/19 18:10 Hct 33.9 % (41.0-60) L 03/07/19 18:10 MCV 92.4 fl (80-99) 03/07/19 18:10 MCH 30.9 pg (26.0-30.0) H 03/07/19 18:10 MCHC Differential 33.5 pg (28.0-36.0) 03/07/19 18:10 RDW 16.2 % (11.5-20.0) 03/07/19 18:10 Plt Count 334 Th/cmm (150-400) 03/07/19 18:10 MPV 7.8 fl 03/07/19 18:10 Add Manual Diff YES 03/07/19 18:10 Neutrophils % CDL B DRIVER 03/07/19 18:10 Band Neutrophils % 4 % (0-10) 03/07/19 18:10 Lymphocytes % CDL B DRIVER 03/07/19 18:10 Monocytes % CDL B DRIVER 03/07/19 18:10 Eosinophils % CDL B DRIVER 03/07/19 18:10 Basophils % CDL B DRIVER 03/07/19 18:10 Neutrophils (Manual) 90 % (40-80) H 03/07/19 18:10 Lymphocytes 4 % (20-50) L 03/07/19 18:10 Monocytes 2 % (2-10) 03/07/19 18:10 PT 9.7 SECONDS (9.5-11.5) 03/07/19 18:10 INR 0.93 (0.5-1.4) 03/07/19 18:10 PTT (Actin FS) 28.8 SECONDS (26.0-38.0) 03/07/19 18:10 Sodium 127 mEq/L (136-145) L 03/07/19 18:10 Potassium 4.8 mEq/L (3.5-5.1) 03/07/19 18:10 Chloride 92 mEq/L (98-107) L 03/07/19 18:10 Carbon Dioxide 16.5 mEq/L (21.0-31.0) L 03/07/19 18:10 Anion Gap 23.3 (7.0-16.0) H 03/07/19 18:10 BUN 68 mg/dL (7-25) H 03/07/19 18:10 Creatinine 12.9 mg/dL (0.7-1.3) H* 03/07/19 18:10 Est GFR ( Amer) 5.9 ml/min (>90) 03/07/19 18:10 Est GFR (Non-Af Amer) 4.9 ml/min 03/07/19 18:10 BUN/Creatinine Ratio 5.3 03/07/19 18:10 Glucose 147 mg/dL (70-105) H 03/07/19 18:10 POC Glucose 169 MG/DL (70 - 105) H 03/07/19 17:10 Whole Bld Lactic Acid 1.36 mmol/L (0.60-1.99) 03/07/19 18:10 Calcium 8.9 mg/dL (8.6-10.3) 03/07/19 18:10 Total Bilirubin 0.5 mg/dL (0.3-1.0) 03/07/19 18:10 AST 9 U/L (13-39) L 03/07/19 18:10 ALT 6 U/L (7-52) L 03/07/19 18:10 Alkaline Phosphatase 136 U/L (34-104) H 03/07/19 18:10 Total Protein 8.1 gm/dL (6.0-8.3) 03/07/19 18:10 Albumin 4.2 gm/dL (4.2-5.5) 03/07/19 18:10 Globulin 3.9 gm/dL 03/07/19 18:10 Albumin/Globulin Ratio 1.1 (1.0-1.8) 03/07/19 18:10 Amylase 28 U/L (29-103) L 03/07/19 18:10 Lipase 16 U/L (11-82) 03/07/19 18:10 Pending lab results: blood cultures. - Radiology Results Results: CT of abdomen/pelvis: Decreased renal sizes. ASVD. NAD. Official report per Dr. Fercho Marin, radiologist. ED Septic Shock - . Is Septic Shock (SBP<90, OR Lactate>4 mmol\L) present?: No - <6hrs of presentation: Vital Signs: Vital Signs - 8 hr 03/07/19 16:49 Temp 98.5 F HR 86 RR 22 BP 114/77 O2 Sat % 99 ED Reassessment (Disposition) - Reassessment Reassessment:: 1745 Pain control was offered. Pt states that he had Dilaudid in the past which he tolerated without adverse reactions. 2100 Pt remains stable. Pt was given clonidine 0.1 mg po because of BP elevated at 174/110. Pt states that he often had BP elevated to that level from time to time, and clonidine was taken. Available lab and CT findings have been reviewed with pt. Management plan has been discussed. Case was discussed with Dr. Kay with pertinent info reviewed. Pt is to be admitted to Telemetry Back under his care. - Diagnosis Diagnosis:: Abdominal pain with recurrent nausea/vomiting. Diabetes mellitus. Leukocytosis ESRD on hemodialysis Hypertension. Mild anemia - Patient Disposition Admitted to:: Telemetry Admitting Medical Physician:: Alex Kay Time:: 21:05 Condition at Disposition:: Stable
[2019-03-07] MEDS ORDERED: HYDROmorphone 1 mg/mL 1mL Syr IVP STA ×2 (17:44→19:50)
[2019-03-07 18:17] LABS: HEMATOCRIT 33.9 % (41.0-60); HEMOGLOBIN 11.3 gm/dL (12-16); MEAN CELL VOLUME 92.4 fl (80-99); MEAN CORPUSCULAR HEMOGLOBIN 30.9 pg (26.0-30.0); MEAN CORPUSCULAR HGB CONC 33.5 pg (28.0-36.0); PLATELET COUNT 334 Th/cmm (150-400); RED BLOOD COUNT 3.67 Mil/cmm (4.30-5.70); RED CELL DISTRIBUTION WIDTH 16.2 % (11.5-20.0)
[2019-03-07] MEDS ORDERED: HYDROmorphone 1 mg/mL 1mL Syr ONE ×3 (18:19→23:24)
[2019-03-07 18:22] LABS: WHITE BLOOD COUNT 19.9 Th/cmm (4.8-10.8)
[2019-03-07 18:23] LABS: INR 0.93 (0.5-1.4)
[2019-03-07 18:27] LABS: ALB/GLOB RATIO 1.1 (1.0-1.8); ALBUMIN 4.2 gm/dL (4.2-5.5); ANION GAP 23.3 (7.0-16.0); BILIRUBIN,TOTAL 0.5 mg/dL (0.3-1.0); CALCIUM SERUM 8.9 mg/dL (8.6-10.3); CARBON DIOXIDE 16.5 mEq/L (21.0-31.0); GFR AFRICAN-AMERICAN 5.9 ml/min (>90); GFR NON AFRICAN-AMERICAN 4.9 ml/min; POTASSIUM SERUM 4.8 mEq/L (3.5-5.1); TOTAL PROTEIN,SERUM 8.1 gm/dL (6.0-8.3)
[2019-03-07 18:29] LABS: BAND NEUTROPHILE 4 % (0-10); LYMPHOCYTE 4 % (20-50); MONOCYTE 2 % (2-10); NEUTROPHILS 90 % (40-80)
[2019-03-07 18:30] LABS: CREATININE - SERUM 12.9 mg/dL (0.7-1.3)
[2019-03-07] MEDS ORDERED: cefTRIAXone 1 GM in Sodium Chloride 0.9% 50 ML IV ONE (20:54)
[2019-03-07] MEDS ORDERED: Maalox 30 mL Cup PO PRN (21:00)
[2019-03-07] MEDS ORDERED: GLUCAGON HCl 1 MG KIT IM PRN (21:09)
[2019-03-07] MEDS ORDERED: Dextrose 50% 50 mL Abboject IVP PRN (21:09)
[2019-03-07] MEDS: D5-0.9%NS 1,000 ML IV SCH (21:12)
[2019-03-07] MEDS ORDERED: Levofloxacin 250mg/50mL 250 MG/50 ML BAG IV SCH (21:15)
[2019-03-07] MEDS ORDERED: Heparin Sod 5,000Units/ML 5,000 UNITS/ML VIAL ONE (21:23)
[2019-03-07] MEDS: Heparin Sod 5,000Units/ML 5,000 UNITS/ML VIAL SUBQ SCH (21:24)
[2019-03-07] MEDS ORDERED: Levofloxacin 250mg/50mL 250 MG/50 ML BAG IV ONE (21:29)
--- NOTE | 2019-03-07 21:53 | History & Physical ---
ADMIT DATE: 03/07/2019 CHIEF COMPLAINT: Abdominal pain. HISTORY OF PRESENT ILLNESS: This is a 28-year-old male with history of diabetes, hypertension, and end-stage renal disease, on hemodialysis, admitted from home secondary to nausea and vomiting for the last 2 days. No recent travel. No intake that is out of the ordinary. The patient was evaluated in the ER and noted to have elevated white count ____. PAST MEDICAL HISTORY: As mentioned in the history of present illness. PAST SURGICAL HISTORY: roxanna Eye surgery.hitesh cath placement ALLERGIES: VALIUM, FENTANYL, HALDOL, TORADOL, AND MORPHINE. SOCIAL HISTORY: He denies smoking, alcohol, or intravenous drug use. He lives with family.in [place] FAMILY HISTORY: Noncontributory. REVIEW OF SYSTEMS: GENERAL: He complains not feeling well. HEENT: The patient with some blurred vision.legally blind [place] NECK: No neck pain. LUNGS: No diagnosis of COPD or asthma. HEART: The patient with hypertension, atherosclerotic heart disease. ABDOMEN: As mentioned in history of present illness. GENITOURINARY: The patient with some diarrhea. NEUROLOGIC: No headache, seizure, or syncope. PSYCHIATRIC: As stated above. PHYSICAL EXAMINATION: VITAL SIGNS: Blood pressure is 174/110, previously was 140/77; respirations 20, pulse is 103, and temperature is 98.1. GENERAL: The patient is an obese male, appears acutely ill. NECK: Supple. No mass. LUNGS: Equal breath sounds without rales or rhonchi. HEART: Regular rate and rhythm without appreciable murmur. ABDOMEN: Soft, globular. EXTREMITIES: Positive excoriations. NEUROLOGIC: Limited. LABORATORY DATA: WBC is 19, hemoglobin is 11, and platelets 334. Sodium is 127, potassium is 4.8, BUN is 68, creatinine is 12.9, and bicarbonate is 16. AST and ALT with normal range. Blood sugar is ____. Amylase and lipase within normal range. ASSESSMENT AND PLAN: Abdominal pain of unclear etiology ?gastroparesis, leukocytosis, sepsis, diabetes, hypertension, end-stage renal disease, and anemia. We will empirically start the patient on Levaquin as well as Flagyl. We will provide the patient with adequate pain control, ADA diet, and insulin sliding scale. We will continue to monitor the patient closely. gi and renal consult [facility]# [id number] MTDAnjelica
[2019-03-07] MEDS: HYDROmorphone 1 mg/mL 1mL Syr IVP PRN (23:35)
[2019-03-08] MEDS ORDERED: HYDROmorphone 1 mg/mL 1mL Syr ONE ×2 (03:31→07:37)
[2019-03-08] MEDS: HYDROmorphone 1 mg/mL 1mL Syr IVP PRN ×5 (03:33→21:55)
[2019-03-08 04:34] LABS: HEMATOCRIT 30.8 % (41.0-60); HEMOGLOBIN 10.3 gm/dL (12-16); MEAN CORPUSCULAR HGB CONC 33.5 pg (28.0-36.0); PLATELET COUNT 269 Th/cmm (150-400); RED CELL DISTRIBUTION WIDTH 16.1 % (11.5-20.0)
[2019-03-08] MEDS ORDERED: metroNIDAZOLE 500mg/NS 100mL 500 MG/100 ML BAG IV ONE (04:55)
[2019-03-08] MEDS ORDERED: metroNIDAZOLE 500mg/NS 100mL 500 MG/100 ML BAG IV SCH (05:00)
[2019-03-08 05:14] LABS: ALB/GLOB RATIO 1.1 (1.0-1.8); ALBUMIN 3.6 gm/dL (4.2-5.5); ANION GAP 23.6 (7.0-16.0); BILIRUBIN,TOTAL 0.4 mg/dL (0.3-1.0); CALCIUM SERUM 8.4 mg/dL (8.6-10.3); CARBON DIOXIDE 15.1 mEq/L (21.0-31.0); POTASSIUM SERUM 4.7 mEq/L (3.5-5.1); TOTAL PROTEIN,SERUM 6.9 gm/dL (6.0-8.3)
[2019-03-08 05:24] LABS: BAND NEUTROPHILE 0 % (0-10); NEUTROPHILS 86 % (40-80)
[2019-03-08 05:25] LABS: BASOPHIL 0 % (0-3); EOSINOPHIL 0 % (0-5); LYMPHOCYTE 10 % (20-50); MONOCYTE 4 % (2-10); PLATELET ESTIMATE ADEQUATE (NORMAL)
[2019-03-08 05:27] LABS: GFR AFRICAN-AMERICAN 5.7 ml/min (>90); GFR NON AFRICAN-AMERICAN 4.7 ml/min
[2019-03-08 05:29] LABS: CREATININE - SERUM 13.2 mg/dL (0.7-1.3)
[2019-03-08] MEDS: INSULIN LISPRO SLIDING SCALE 100 UNITS/ML UNIT SUBQ SCH ×4 (07:13→20:54)
[2019-03-08 07:15] LABS: MEAN CORPUSCULAR HEMOGLOBIN 31.2 pg (26.0-30.0)
[2019-03-08 07:16] LABS: WHITE BLOOD COUNT 16.8 Th/cmm (4.8-10.8)
[2019-03-08 07:17] LABS: RED BLOOD COUNT 3.32 Mil/cmm (4.30-5.70)
[2019-03-08] MEDS ORDERED: Levofloxacin 250 mg/50 mL Premix Bag IV SCH (08:00)
[2019-03-08] MEDS: Vitamin B Complex w/Vitamin C Tab PO SCH (09:02)
[2019-03-08] MEDS: Heparin Sod 5,000Units/ML 5,000 UNITS/ML VIAL SUBQ SCH ×2 (09:04→20:55)
--- NOTE | 2019-03-08 10:15 | Diagnostic Imaging Report ---
CT abdomen and pelvis without intravenous contrast Indication: Abdominal pain Comparison: CT abdomen and pelvis on 11/04/2018 and Chest x-ray on 11/04/2018, Technique: Axial images were obtained from the lung bases to the bilateral proximal femurs without IV contrast. Coronal reconstructions were made. total DLP: 949, CTDI17.5 FINDINGS: Left basal atelectasis versus infiltrates are noted. There is prominent bilateral soft tissue density along the retroareolar regions likely outbound call center representative of gynecomastia. Evaluation of the solid organs is limited due to lack of IV contrast. No focal hepatic, splenic lesions. Pancreatic atrophy is noted with no focal lesions. No focal adrenal lesions. Bilateral renal atrophy is noted. No hydronephrosis. Fluid-filled loops of large bowel are seen along the ascending colonic region. No appendicitis. No evidence of bowel obstruction. Gas distended stomach and multiple small bowel loops are seen greatest along left hemiabdomen. Diffuse atherosclerosis is noted. No free fluid or free air. Degenerative changes of the spine are noted. IMPRESSION: Fluid-filled loops of large bowel along the right lower quadrant. Additional fluid and gas distended stomach and small bowel loops are seen along left abdomen. Findings may be due to infectious or inflammatory process or mild ileus. Low-grade obstructive process of small bowel is considered much less likely. Clinical correlation and follow-up is needed. Diffuse atherosclerosis. Bilateral renal atrophy noted. Left basal atelectasis versus less likely infiltrate Diffuse bilateral retroareolar soft tissue density likely representing gynecomastia. Clinical correlation and follow-up including mammogram ultrasound may be obtained.
--- NOTE | 2019-03-08 12:49 | Internal Medicine Prog Note ---
Internal Medicine Subjective - Subjective Patient seen and examined:: with staff, chart reviewed Patient is:: awake, verbal, interactive, in bed Patient Complaints of:: congestion, bloated Per staff patient has:: no adverse event, no episodes of fall, tolerating meds Internal Medicine Objective - Results Result Diagrams: 03/08/19 04:10 03/08/19 04:10 Recent Labs: Laboratory Last Values WBC 16.8 Th/cmm (4.8-10.8) H 03/08/19 04:10 RBC 3.32 Mil/cmm (4.30-5.70) L 03/08/19 04:10 Hgb 10.3 gm/dL (12-16) L 03/08/19 04:10 Hct 30.8 % (41.0-60) L 03/08/19 04:10 MCV 93.0 fl (80-99) 03/08/19 04:10 MCH 31.2 pg (26.0-30.0) H 03/08/19 04:10 MCHC Differential 33.5 pg (28.0-36.0) 03/08/19 04:10 RDW 16.1 % (11.5-20.0) 03/08/19 04:10 Plt Count 269 Th/cmm (150-400) 03/08/19 04:10 MPV 8.0 fl 03/08/19 04:10 Add Manual Diff YES 03/08/19 04:10 Neutrophils % TOOL AND DIE MACHINIST 03/08/19 04:10 Band Neutrophils % 0 % (0-10) 03/08/19 04:10 Lymphocytes % TOOL AND DIE MACHINIST 03/08/19 04:10 Monocytes % TOOL AND DIE MACHINIST 03/08/19 04:10 Eosinophils % TOOL AND DIE MACHINIST 03/08/19 04:10 Basophils % TOOL AND DIE MACHINIST 03/08/19 04:10 Neutrophils (Manual) 86 % (40-80) H 03/08/19 04:10 Lymphocytes 10 % (20-50) L 03/08/19 04:10 Monocytes 4 % (2-10) 03/08/19 04:10 Eosinophils 0 % (0-5) 03/08/19 04:10 Basophils 0 % (0-3) 03/08/19 04:10 Platelet Estimate ADEQUATE (NORMAL) 03/08/19 04:10 Smear Path Review Not Reportable 03/08/19 04:10 PT 9.7 SECONDS (9.5-11.5) 03/07/19 18:10 INR 0.93 (0.5-1.4) 03/07/19 18:10 PTT (Actin FS) 28.8 SECONDS (26.0-38.0) 03/07/19 18:10 Sodium 129 mEq/L (136-145) L 03/08/19 04:10 Potassium 4.7 mEq/L (3.5-5.1) 03/08/19 04:10 Chloride 95 mEq/L (98-107) L 03/08/19 04:10 Carbon Dioxide 15.1 mEq/L (21.0-31.0) L 03/08/19 04:10 Anion Gap 23.6 (7.0-16.0) H 03/08/19 04:10 BUN 71 mg/dL (7-25) H 03/08/19 04:10 Creatinine 13.2 mg/dL (0.7-1.3) H* 03/08/19 04:10 Est GFR ( Amer) 5.7 ml/min (>90) 03/08/19 04:10 Est GFR (Non-Af Amer) 4.7 ml/min 03/08/19 04:10 BUN/Creatinine Ratio 5.4 03/08/19 04:10 Glucose 172 mg/dL (70-105) H 03/08/19 04:10 POC Glucose 156 MG/DL (70 - 105) H 03/08/19 12:14 Whole Bld Lactic Acid 1.36 mmol/L (0.60-1.99) 03/07/19 18:10 Calcium 8.4 mg/dL (8.6-10.3) L 03/08/19 04:10 Total Bilirubin 0.4 mg/dL (0.3-1.0) 03/08/19 04:10 AST 6 U/L (13-39) L 03/08/19 04:10 ALT 5 U/L (7-52) L 03/08/19 04:10 Alkaline Phosphatase 117 U/L (34-104) H 03/08/19 04:10 B-Natriuretic Peptide 332.0 pg/mL (5.0-100.0) H 03/08/19 04:10 Total Protein 6.9 gm/dL (6.0-8.3) 03/08/19 04:10 Albumin 3.6 gm/dL (4.2-5.5) L 03/08/19 04:10 Globulin 3.3 gm/dL 03/08/19 04:10 Albumin/Globulin Ratio 1.1 (1.0-1.8) 03/08/19 04:10 Amylase 28 U/L (29-103) L 03/07/19 18:10 Lipase 16 U/L (11-82) 03/07/19 18:10 - Physical Exam Vitals and I&O: Vital Signs Temp 96.9 F 03/08/19 08:20 Pulse 79 03/08/19 09:02 Resp 16 03/08/19 08:20 BP 168/103 03/08/19 09:02 Pulse Ox 99 03/08/19 08:20 Intake & Output 03/07/19 03/08/19 03/08/19 18:59 06:59 18:59 Intake Total 50 Balance 50 Weight (lbs) 113 kg Intake: Intake, IV Amount 50 [id number] 1 gm In 50 Sodium Chloride 0.9% 50 ml @ 100 mls/hr IV X1 ONE Rx#:[id number] Other: Weight Source Patient stated Active Medications: Current Medications Acetaminophen (Tylenol) 650 mg PO Q4H PRN PRN Reason: Mild Pain (1-3) or Fever >101 Stop: 05/06/19 20:59 Al Hydrox/Mg Hydrox/Simethicone (Maalox) 30 ml PO Q6H PRN PRN Reason: Dyspepsia Stop: 05/06/19 20:59 Dextrose (D50w) 50 ml IVP PRN PRN PRN Reason: Blood Glucose less than 70 Stop: 05/06/19 21:08 Dextrose (Glutose 40%) 18.75 gm PO PRN PRN PRN Reason: Blood Glucose less than 70 Stop: 05/06/19 21:08 Glucagon (Glucagen) 1 mg IM PRN PRN PRN Reason: Blood Glucose less than 70 Stop: 05/06/19 21:08 Heparin Sodium (Porcine) (Heparin) 5,000 units SUBQ Q12HR [facility] Stop: 05/06/19 20:59 Last Admin: 03/08/19 09:04 Dose: 5,000 units Hydromorphone HCl (Dilaudid) 1 mg IVP Q4HR PRN PRN Reason: Pain (Severe) Stop: 05/06/19 21:08 Dextrose/Sodium Chloride (D5-0.9%Ns) 1,000 mls @ 80 mls/hr IV .[id number] [facility] Stop: 05/06/19 20:59 Last Admin: 03/07/19 21:12 Dose: 80 mls/hr Metronidazole (Flagyl) 500 mg in 100 mls @ 100 mls/hr IV Q12HR@0600,1800 [facility]; Protocol Stop: 05/07/19 17:59 Piperacillin Sod/Tazobactam (Sod 2.25 gm/ Sodium Chloride) 50 mls @ 100 mls/hr IV Q8HR [facility] Stop: 05/07/19 12:59 Insulin Human Lispro (Humalog Insulin Sliding Scale) 0 units SUBQ ACHS [facility]; Protocol Stop: 05/07/19 07:29 Last Admin: 03/08/19 07:13 Dose: Not Given Metoprolol Tartrate (Lopressor) 50 mg PO BID [facility] Stop: 05/07/19 08:59 Last Admin: 03/08/19 09:02 Dose: 50 mg Miscellaneous (Clinical Monitoring) 1 ea [facility] DAILY PRN PRN Reason: RENAL DOSING Stop: 05/07/19 08:08 Ondansetron HCl (Zofran) 4 mg IV Q8H PRN PRN Reason: Nausea / Vomiting Stop: 05/06/19 20:59 Last Admin: 03/07/19 23:30 Dose: 4 mg Sodium Bicarbonate (Sodium Bicarbonate) 650 mg PO BID [facility]; Protocol Stop: 05/07/19 08:59 Last Admin: 03/08/19 09:03 Dose: 650 mg Vitamin B Complex/Vit C/Folic Acid (Vitamin B Complex W/Vitamin C) 1 tab PO DAILY [facility] Stop: 05/07/19 08:59 Last Admin: 03/08/19 09:02 Dose: 1 tab Vitamin D (Vitamin D) 400 iu PO DAILY [facility] Stop: 05/07/19 08:59 Last Admin: 03/08/19 09:02 Dose: 400 iu Zolpidem Tartrate (Ambien) 10 mg PO HS PRN PRN Reason: Insomnia Stop: 05/06/19 20:59 General: alert HEENT: NC/AT, PERRLA Neck: Supple, No JVD, No LAD Lungs: rales Cardiovascular: RRR, Normal S1, Normal S2, without murmur Abdomen: soft, globular, positive bowel sound Extremities: excoriation Neurological: no change - Procedures Procedures: Procedures Procedure Code Date PERFORMANCE OF URINARY FILTRATION, <6 HRS/DAY [id number] 11/04/18 Internal Medicine Assmt/Plan - Assessment Assessment: ASSESSMENT AND PLAN: Abdominal pain of unclear etiology, leukocytosis, sepsis, diabetes, hypertension, end-stage renal disease, and anemia. obesity ?gastroparesis - Plan Plan: PLAN: We will empirically start the patient on osyn as well as Flagyl. We will provide the patient with adequate pain control, ADA diet, and insulin sliding scale. We will continue to monitor the patient closely. gi and nephro consulted mother at bedside
[2019-03-08] MEDS ORDERED: Heparin Sod 5,000Units/ML 5,000 UNITS/ML VIAL SUBQ STA ×2 (16:51→16:53)
--- NOTE | 2019-03-08 18:40 | Consultation ---
Consult Note - Consult Note Service Date: 03/08/19 Referring Physician: Alex Kay Consult Note: PHYSICIAN Consultation Note: Date of Admission: 03/07/19 Purpose of Consultation: Chief Complaint: History of Present Illness: Patient BJ DAVENPORT was admitted to [facility] Telemetry with ABDOMINAL PAIN, SEPSIS. WELL KNOWN TO OUR PRACTICE SECONDARY TO ESRD FROM DM AND HTN ON MAINTENANCE HD AT [facility], WITH CHRONIC ABDOMINAL PAIN FROM DIABETIC GASTROPARESIS, OPIOID DEPENDENCE AND RECURRENT HOSPITALIZATIONS. 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 HAS UNDERGONE GI EVAL MANY TIMES. NOTED TO HAVE AN ABRASION ON THE BRIDGE OF HIS NOSE AND SURROUNDING LEFT ORBITAL ERYTHEMA, SAYS HE WAS BIT BY SOMETHING AND THIS WAS PRIMARY REASON FOR PRESENTATION. NOTED TO BE ON ZOSYN. ALSO STATES HE HAS BEEN HAVING DIARRHEA X 5 DAYS. Past Medical History: Diagnoses SEPSIS, UNSPECIFIED ORGANISM (03/07/19) ANEMIA, UNSPECIFIED (03/07/19) ELEVATED WHITE BLOOD CELL COUNT, UNSPECIFIED (03/07/19) ESSENTIAL (PRIMARY) HYPERTENSION (03/07/19) END STAGE RENAL DISEASE (03/07/19) UNSPECIFIED ABDOMINAL PAIN (03/07/19) WEAKNESS (03/07/19) DEPENDENCE ON RENAL DIALYSIS (03/07/19) Allergies Allergy/AdvReac Type Severity Reaction Status Date / Time diazepam [From Valium] Allergy Verified 03/07/19 20:46 fentanyl Allergy Verified 03/07/19 20:46 haloperidol [From Haldol] Allergy Verified 03/07/19 20:46 ketorolac [From Toradol] Allergy Verified 03/07/19 20:46 morphine Allergy Verified 03/07/19 20:46 tramadol Allergy Verified 03/07/19 20:46 Vital Signs Temp 96.4 F 03/08/19 12:00 Pulse 87 03/08/19 18:17 Resp 18 03/08/19 12:00 BP 130/89 03/08/19 18:17 Pulse Ox 100 03/08/19 12:00 Intake & Output 03/07/19 03/08/19 03/08/19 18:59 06:59 18:59 Intake Total 50 Balance 50 Weight (lbs) 113 kg Intake: Intake, IV Amount 50 cefTRIAXone 1 gm In 50 Sodium Chloride 0.9% 50 ml @ 100 mls/hr IV X1 ONE Rx#:[id number] Other: Weight Source Patient stated Laboratory Results - last 24 hr 03/07/19 03/08/19 03/08/19 18:10 04:10 04:10 WBC 16.8 H RBC 3.32 L Hgb 10.3 L Hct 30.8 L MCV 93.0 MCH 31.2 H MCHC Differential 33.5 RDW 16.1 Plt Count 269 MPV 8.0 Add Manual Diff YES Neutrophils % POTLINE MONITOR Band Neutrophils % 0 Lymphocytes % POTLINE MONITOR Monocytes % POTLINE MONITOR Eosinophils % POTLINE MONITOR Basophils % POTLINE MONITOR Neutrophils (Manual) 86 H Lymphocytes 10 L Monocytes 4 Eosinophils 0 Basophils 0 Platelet Estimate ADEQUATE Smear Path Review Not Reportable Sodium 129 L Potassium 4.7 Chloride 95 L Carbon Dioxide 15.1 L Anion Gap 23.6 H BUN 71 H Creatinine 13.2 H* Est GFR ( Amer) 5.7 Est GFR (Non-Af Amer) 4.7 BUN/Creatinine Ratio 5.4 Glucose 172 H POC Glucose Whole Bld Lactic Acid 1.36 Calcium 8.4 L Total Bilirubin 0.4 AST 6 L ALT 5 L Alkaline Phosphatase 117 H B-Natriuretic Peptide Total Protein 6.9 Albumin 3.6 L Globulin 3.3 Albumin/Globulin Ratio 1.1 03/08/19 03/08/19 04:10 12:14 WBC RBC Hgb Hct MCV MCH MCHC Differential RDW Plt Count MPV Add Manual Diff Neutrophils % Band Neutrophils % Lymphocytes % Monocytes % Eosinophils % Basophils % Neutrophils (Manual) Lymphocytes Monocytes Eosinophils Basophils Platelet Estimate Smear Path Review Sodium Potassium Chloride Carbon Dioxide Anion Gap BUN Creatinine Est GFR ( Amer) Est GFR (Non-Af Amer) BUN/Creatinine Ratio Glucose POC Glucose 156 H Whole Bld Lactic Acid Calcium Total Bilirubin AST ALT Alkaline Phosphatase B-Natriuretic Peptide 332.0 H Total Protein Albumin Globulin Albumin/Globulin Ratio Home Medication Medication Instructions Recorded Type HYDROmorphone [Dilaudid*] 2 mg PO Q4HR PRN 11/04/18 History Metoprolol Tartrate 50 mg PO DAILY 11/04/18 History Pantoprazole [Protonix] 40 mg PO DAILY 11/04/18 History Sitagliptin [Januvia] 50 mg PO DAILY 03/07/19 History Vitamin D 400 iu PO DAILY 03/07/19 History Current Medications Generic Name Dose Route Start Last Admin Trade Name Freq PRN Reason Stop Dose Admin Acetaminophen 650 mg 03/07/19 21:00 Tylenol PO 05/06/19 20:59 Q4H PRN Mild Pain (1-3) or Fever >101 Al Hydrox/Mg Hydrox/Simethicone 30 ml 03/07/19 21:00 Maalox PO 05/06/19 20:59 Q6H PRN Dyspepsia Dextrose 50 ml 03/07/19 21:09 D50w IVP 05/06/19 21:08 PRN PRN Blood Glucose less than 70 Dextrose 18.75 gm 03/07/19 21:09 Glutose 40% PO 05/06/19 21:08 PRN PRN Blood Glucose less than 70 Diphenhydramine HCl 50 mg 03/08/19 14:00 03/08/19 14:33 Benadryl 50 Mg/Ml IVP 05/07/19 13:59 50 mg DAILY MIRANDA Administration Glucagon 1 mg 03/07/19 21:09 Glucagen IM 05/06/19 21:08 PRN PRN Blood Glucose less than 70 Heparin Sodium (Porcine) 5,000 units 03/07/19 21:00 03/08/19 09:04 Heparin SUBQ 05/06/19 20:59 5,000 units Q12HR MIRANDA Administration Hydromorphone HCl 1 mg 03/08/19 12:46 03/08/19 18:05 Dilaudid IVP 05/06/19 21:08 1 mg Q4HR PRN Administration Pain (Severe) Dextrose/Sodium Chloride 1,000 mls @ 80 mls/hr 03/07/19 21:00 03/07/19 21:12 D5-0.9%Ns IV 05/06/19 20:59 80 mls/hr .[id number] MIRANDA Administration Metronidazole 500 mg in 100 mls @ 100 mls/hr 03/08/19 18:00 Flagyl IV 05/07/19 17:59 Q12HR@0600,1800 MIRANDA Protocol Piperacillin Sod/Tazobactam 50 mls @ 100 mls/hr 03/08/19 13:00 03/08/19 18:18 Sod 2.25 gm/ Sodium Chloride IV 05/07/19 12:59 100 mls/hr Q8HR MRIANDA Administration Erythromycin Lactobionate 250 100 mls @ 100 mls/hr 03/09/19 08:00 mg/ Sodium Chloride IV 05/08/19 07:59 Q8H MIRANDA Insulin Human Lispro 0 units 03/08/19 07:30 03/08/19 14:27 Humalog Insulin Sliding Scale SUBQ 05/07/19 07:29 Not Given ACHS MIRANDA Protocol Metoprolol Tartrate 50 mg 03/08/19 09:00 03/08/19 18:17 Lopressor PO 05/07/19 08:59 50 mg BID MIRANDA Administration Miscellaneous 1 ea 03/08/19 08:09 Clinical Monitoring 05/07/19 08:08 DAILY PRN RENAL DOSING Sodium Bicarbonate 650 mg 03/08/19 09:00 03/08/19 18:18 Sodium Bicarbonate PO 05/07/19 08:59 650 mg BID MIRANDA Administration Protocol Valsartan 80 mg 03/08/19 12:51 Diovan PO 05/07/19 12:50 DAILY MIRANDA Vitamin B Complex/Vit C/Folic Acid 1 tab 03/08/19 09:00 03/08/19 09:02 Vitamin B Complex W/Vitamin C PO 05/07/19 08:59 1 tab DAILY MIRANDA Administration Vitamin D 400 iu 03/08/19 09:00 03/08/19 09:02 Vitamin D PO 05/07/19 08:59 400 iu DAILY MIRANDA Administration Zolpidem Tartrate 10 mg 03/07/19 21:00 Ambien PO 05/06/19 20:59 HS PRN Insomnia Review of Systems: A 12 point ROS was reviewed with the pertinent positive and negatives noted in the HPI. Social History Smoking Status Never smoker Family Medical History Family Medical History Start: 03/08/19 06: 37 Freq: ONCE Status: Active Protocol: Document 03/08/19 08:20 AISHA (Rec: 03/08/19 10:31 AISHA [id number]) Family Medical History Mother History Unknown Yes Physical Exam: General: BLIND, OBESE, NAD HEENT: +BITE BRICE ON BRIDGE OF NOSE AND SURROUNDING LEFT PERIORBITAL ERYTHEMA AND EDEMA Neck: LEFT CHEST IJ PERMACATH Cardio: S1 S2 Respiratory: CLEAR Abdominal: OBESE Extremities: NO EDEMA Neurological: INTACT Assessment: ESRD 2/2 DM AND HTN ANEMIA OF ESRD DM WITH RENAL, OPTHO, NEURO MANIFESTATIONS HTN FACIAL CELLULITIS DIARRHEA Plan: HD TODAY CONSIDER ID EVAL CONT IV ABX CHECK STOOL FOR C DIF THANK YOU WILL FOLLOW Signed, Lyudmila Le M.D. [id number]
[2019-03-08] MEDS: metroNIDAZOLE 500 mg/100 mL Premix Bag IV SCH (19:45)
[2019-03-08] MEDS: D5-0.9%NS 1,000 ML IV SCH (22:05)
--- NOTE | 2019-03-08 22:36 | Consultation ---
DATE OF CONSULTATION: 03/08/2019 INPATIENT GASTROINTESTINAL CONSULTATION REFERRING PHYSICIAN: Dr. Kay. REASON FOR CONSULTATION: Epigastric pain. HISTORY OF PRESENT ILLNESS: This is a 28-year-old male with known history of diabetes and gastroparesis, presenting to the hospital with worsening epigastric pain associated with nausea and vomiting in the absence of any hematemesis or coffee-ground emesis. The patient denies having any melena or hematochezia. He has had an endoscopy earlier this year as well as a gastric emptying study. PAST MEDICAL HISTORY: Diabetes, hypertension, chronic kidney disease, gastroparesis. PAST SURGICAL HISTORY: Eye surgery, dialysis catheter placement. FAMILY HISTORY: Noncontributory. SOCIAL HISTORY: Denies tobacco, alcohol or IV drug usage, marijuana usage. ALLERGIES: DIAZEPAM, FENTANYL, HALOPERIDOL, KETOROLAC, MORPHINE, TRAMADOL. CURRENT MEDICATIONS: Tylenol, Maalox, glucagon, heparin, Dilaudid, insulin, Reglan, Lopressor, Flagyl, Zofran, Diovan, Ambien. REVIEW OF SYSTEMS: Ten point review of system was performed and the pertinent positive was the epigastric pain, diabetes, gastroparesis. All other systems were otherwise negative. PHYSICAL EXAMINATION: VITAL SIGNS: Temperature is 96.9, breathing 16, pulse of 79, blood pressure 168/103, satting 99%. GENERAL: In no apparent distress. EYES: Anicteric. Normal conjunctivae. HENT: Normocephalic, atraumatic. Moist mucous membranes. NECK: Soft, supple. CHEST: Clear. No effort. CARDIOVASCULAR: Regular rate and rhythm. ABDOMEN: Soft, nondistended, tender epigastrium. No rebound, no guarding. SKIN: Warm, dry. EXTREMITIES: Reveal no cyanosis. PSYCHOLOGIC: Alert and oriented x 3. LABORATORY DATA: Show white count 16.8, hemoglobin 10.3, platelets 269. INR 0.93, creatinine 13.2. Total bilirubin 0.4, AST 6, ALT 5, alkaline phosphatase 117. Lipase 16. CT abdomen and pelvis showed fluid-filled loops of large bowel and right lower quadrant. Findings could be infectious, inflammatory or ileus. IMPRESSION: A 28-year-old male with underlying history of diabetes and gastroparesis, presenting with epigastric pain associated with nonbloody, nausea and vomiting, cause could be from his underlying gastroparesis. The patient had endoscopy done approximately 5 months ago at [facility]. Therefore, there is no need to repeat at this time. We can try to get records of it. He also had gastric emptying study done over at [facility] and we can try to get records of that as well before repeating the test. He should be treated empirically for gastroparesis given that it is likely causing his symptoms at this time. Reglan was offered, but he states that he has an allergy to it. Alternatively, he does better with erythromycin. PLAN: 1. Stop Reglan due to the patient's previous side effects. 2. Erythromycin and Benadryl. 3. Keep hydrated. 4. Small frequent meals. 5. Low fat, low fiber diet. Thank you for allowing me to participate. Please call me if any questions. JOB# [id number]
[2019-03-09] MEDS: HYDROmorphone 1 mg/mL 1mL Syr IVP PRN ×6 (01:55→22:05)
[2019-03-09 04:31] LABS: % BASOPHILS 0.3 % (0.0-2.0); % EOSINOPHILS 0.3 % (0.0-5.0); % LYMPHOCYTES 6.9 % (20.0-50.0); % MONOCYTES 5.9 % (2.0-10.0); % NEUTROPHILS 86.6 % (40.0-80.0); HEMATOCRIT 31.8 % (41.0-60); HEMOGLOBIN 10.6 gm/dL (12-16); LYMPHOCYTE ABSOLUTE 0.9 Th/cmm (1.5-3.0); MEAN CELL VOLUME 93.9 fl (80-99); MEAN CORPUSCULAR HEMOGLOBIN 31.2 pg (26.0-30.0); MEAN CORPUSCULAR HGB CONC 33.2 pg (28.0-36.0); MONOCYTE ABSOLUTE 0.8 Th/cmm (0.3-1.0); NEUTROPHILE ABSOLUTE 11.2 Th/cmm (1.8-8.0); PLATELET COUNT 274 Th/cmm (150-400); RED BLOOD COUNT 3.38 Mil/cmm (4.30-5.70); RED CELL DISTRIBUTION WIDTH 15.7 % (11.5-20.0); WHITE BLOOD COUNT 12.9 Th/cmm (4.8-10.8)
[2019-03-09] MEDS: metroNIDAZOLE 500 mg/100 mL Premix Bag IV SCH ×2 (05:04→17:06)
[2019-03-09 05:12] LABS: BAND NEUTROPHILE 0 % (0-10); BASOPHIL 0 % (0-3); EOSINOPHIL 0 % (0-5); LYMPHOCYTE 7 % (20-50); MONOCYTE 4 % (2-10); NEUTROPHILS 89 % (40-80); PLATELET ESTIMATE ADEQUATE (NORMAL)
[2019-03-09 05:19] LABS: ALBUMIN 3.5 gm/dL (4.2-5.5); ANION GAP 21.5 (7.0-16.0); BILIRUBIN,TOTAL 0.4 mg/dL (0.3-1.0); CALCIUM SERUM 8.2 mg/dL (8.6-10.3); CARBON DIOXIDE 20.1 mEq/L (21.0-31.0); GFR AFRICAN-AMERICAN 7.6 ml/min (>90); GFR NON AFRICAN-AMERICAN 6.3 ml/min; POTASSIUM SERUM 3.6 mEq/L (3.5-5.1); TOTAL PROTEIN,SERUM 6.9 gm/dL (6.0-8.3)
[2019-03-09 06:06] LABS: CREATININE - SERUM 10.3 mg/dL (0.7-1.3)
[2019-03-09] MEDS: INSULIN LISPRO SLIDING SCALE 100 UNITS/ML UNIT SUBQ SCH ×4 (06:53→21:21)
[2019-03-09] MEDS: D5-0.9%NS 1,000 ML IV SCH (07:16)
--- NOTE | 2019-03-09 07:55 | GI Progress Note ---
Subjective - Review of Systems Subjective: HAS NAUSEA STATES THE BENADRYL HELPED A LOT GI OBJECTIVE - Results Result Diagrams: 03/09/19 04:15 03/09/19 04:15 Recent Labs: Laboratory Last Values WBC 12.9 Th/cmm (4.8-10.8) H 03/09/19 04:15 RBC 3.38 Mil/cmm (4.30-5.70) L 03/09/19 04:15 Hgb 10.6 gm/dL (12-16) L 03/09/19 04:15 Hct 31.8 % (41.0-60) L 03/09/19 04:15 MCV 93.9 fl (80-99) 03/09/19 04:15 MCH 31.2 pg (26.0-30.0) H 03/09/19 04:15 MCHC Differential 33.2 pg (28.0-36.0) 03/09/19 04:15 RDW 15.7 % (11.5-20.0) 03/09/19 04:15 Plt Count 274 Th/cmm (150-400) 03/09/19 04:15 MPV 7.8 fl 03/09/19 04:15 Add Manual Diff YES 03/08/19 04:10 Neutrophils % 86.6 % (40.0-80.0) H 03/09/19 04:15 Band Neutrophils % 0 % (0-10) 03/09/19 04:15 Lymphocytes % 6.9 % (20.0-50.0) L 03/09/19 04:15 Monocytes % 5.9 % (2.0-10.0) 03/09/19 04:15 Eosinophils % 0.3 % (0.0-5.0) 03/09/19 04:15 Basophils % 0.3 % (0.0-2.0) 03/09/19 04:15 Neutrophils (Manual) 89 % (40-80) H 03/09/19 04:15 Lymphocytes 7 % (20-50) L 03/09/19 04:15 Monocytes 4 % (2-10) 03/09/19 04:15 Eosinophils 0 % (0-5) 03/09/19 04:15 Basophils 0 % (0-3) 03/09/19 04:15 Platelet Estimate ADEQUATE (NORMAL) 03/09/19 04:15 Smear Path Review Not Reportable 03/08/19 04:10 PT 9.7 SECONDS (9.5-11.5) 03/07/19 18:10 INR 0.93 (0.5-1.4) 03/07/19 18:10 PTT (Actin FS) 28.8 SECONDS (26.0-38.0) 03/07/19 18:10 Sodium 135 mEq/L (136-145) L 03/09/19 04:15 Potassium 3.6 mEq/L (3.5-5.1) 03/09/19 04:15 Chloride 97 mEq/L (98-107) L 03/09/19 04:15 Carbon Dioxide 20.1 mEq/L (21.0-31.0) L 03/09/19 04:15 Anion Gap 21.5 (7.0-16.0) H 03/09/19 04:15 BUN 46 mg/dL (7-25) H 03/09/19 04:15 Creatinine 10.3 mg/dL (0.7-1.3) H* 03/09/19 04:15 Est GFR ( Amer) 7.6 ml/min (>90) 03/09/19 04:15 Est GFR (Non-Af Amer) 6.3 ml/min 03/09/19 04:15 BUN/Creatinine Ratio 4.5 03/09/19 04:15 Glucose 220 mg/dL (70-105) H 03/09/19 04:15 POC Glucose 153 MG/DL (70 - 105) H 03/09/19 06:49 Whole Bld Lactic Acid 1.36 mmol/L (0.60-1.99) 03/07/19 18:10 Calcium 8.2 mg/dL (8.6-10.3) L 03/09/19 04:15 Total Bilirubin 0.4 mg/dL (0.3-1.0) 03/09/19 04:15 AST 7 U/L (13-39) L 03/09/19 04:15 ALT 4 U/L (7-52) L 03/09/19 04:15 Alkaline Phosphatase 112 U/L (34-104) H 03/09/19 04:15 B-Natriuretic Peptide 332.0 pg/mL (5.0-100.0) H 03/08/19 04:10 Total Protein 6.9 gm/dL (6.0-8.3) 03/09/19 04:15 Albumin 3.5 gm/dL (4.2-5.5) L 03/09/19 04:15 Globulin 3.4 gm/dL 03/09/19 04:15 Albumin/Globulin Ratio 1.0 (1.0-1.8) 03/09/19 04:15 Amylase 28 U/L (29-103) L 03/07/19 18:10 Lipase 16 U/L (11-82) 03/07/19 18:10 - Physical Exam Vitals and I&O: Vital Signs Temp 99.4 F 03/09/19 00:00 Pulse 75 03/09/19 07:45 Resp 18 03/09/19 07:45 BP 117/66 03/09/19 00:00 Pulse Ox 99 03/09/19 07:45 Intake & Output 03/08/19 03/09/19 03/09/19 18:59 06:59 18:59 Intake Total 2550 150 734.667 Output Total 4090 Balance -1540 150 734.667 Weight (lbs) 112.491 kg Intake: Intake, IV Amount 1050 150 734.667 D5-0.9%Ns 1,000 ml @ 80 1000 734.667 mls/hr IV .[id number] [facility] Rx #:[id number] Piperacillin Sodium/ 50 50 Tazobact 2.25 gm In Sodium Chloride 0.9% 50 ml @ 100 mls/hr IV Q8HR [facility] Rx#:[id number] metroNIDAZOLE 500mg/NS 100 100mL 500 mg In 100 ml @ 100 mls/hr IV Q12HR@0600, 1800 [facility] Rx#:[id number] Oral 1500 Output: Emesis 90 Hemodialysis 4000 Other: Weight Source Bedscale Active Medications: Current Medications Acetaminophen (Tylenol) 650 mg PO Q4H PRN PRN Reason: Mild Pain (1-3) or Fever >101 Stop: 05/06/19 20:59 Al Hydrox/Mg Hydrox/Simethicone (Maalox) 30 ml PO Q6H PRN PRN Reason: Dyspepsia Stop: 05/06/19 20:59 Dextrose (D50w) 50 ml IVP PRN PRN PRN Reason: Blood Glucose less than 70 Stop: 05/06/19 21:08 Dextrose (Glutose 40%) 18.75 gm PO PRN PRN PRN Reason: Blood Glucose less than 70 Stop: 05/06/19 21:08 Diphenhydramine HCl (Benadryl 50 Mg/Ml) 50 mg IVP DAILY [facility] Stop: 05/07/19 13:59 Last Admin: 03/08/19 14:33 Dose: 50 mg Glucagon (Glucagen) 1 mg IM PRN PRN PRN Reason: Blood Glucose less than 70 Stop: 05/06/19 21:08 Heparin Sodium (Porcine) (Heparin) 5,000 units SUBQ Q12HR [facility] Stop: 05/06/19 20:59 Last Admin: 03/08/19 20:55 Dose: 5,000 units Hydromorphone HCl (Dilaudid) 1 mg IVP Q4HR PRN PRN Reason: Pain (Severe) Stop: 05/06/19 21:08 Last Admin: 03/09/19 05:49 Dose: 1 mg Dextrose/Sodium Chloride (D5-0.9%Ns) 1,000 mls @ 80 mls/hr IV .[id number] [facility] Stop: 05/06/19 20:59 Last Admin: 03/09/19 07:16 Dose: 80 mls/hr Metronidazole (Flagyl) 500 mg in 100 mls @ 100 mls/hr IV Q12HR@0600,1800 [facility]; Protocol Stop: 05/07/19 17:59 Last Admin: 03/09/19 05:04 Dose: 100 mls/hr Piperacillin Sod/Tazobactam (Sod 2.25 gm/ Sodium Chloride) 50 mls @ 100 mls/hr IV Q8HR [facility] Stop: 05/07/19 12:59 Last Admin: 03/09/19 04:11 Dose: 100 mls/hr Erythromycin Lactobionate 250 (mg/ Sodium Chloride) 100 mls @ 100 mls/hr IV Q8H [facility] Stop: 05/08/19 07:59 Insulin Human Lispro (Humalog Insulin Sliding Scale) 0 units SUBQ ACHS [facility]; Protocol Stop: 05/07/19 07:29 Last Admin: 03/09/19 06:53 Dose: Not Given Metoprolol Tartrate (Lopressor) 50 mg PO BID [facility] Stop: 05/07/19 08:59 Last Admin: 03/08/19 18:17 Dose: 50 mg Miscellaneous (Clinical Monitoring) 1 ea MC DAILY PRN PRN Reason: RENAL DOSING Stop: 05/07/19 08:08 Ondansetron HCl (Zofran) 4 mg IV Q8H PRN PRN Reason: Nausea / Vomiting Stop: 05/08/19 07:36 Sodium Bicarbonate (Sodium Bicarbonate) 650 mg PO BID [facility]; Protocol Stop: 05/07/19 08:59 Last Admin: 03/08/19 18:18 Dose: 650 mg Valsartan (Diovan) 80 mg PO DAILY [facility] Stop: 05/07/19 12:50 Vitamin B Complex/Vit C/Folic Acid (Vitamin B Complex W/Vitamin C) 1 tab PO DAILY [facility] Stop: 05/07/19 08:59 Last Admin: 03/08/19 09:02 Dose: 1 tab Vitamin D (Vitamin D) 400 iu PO DAILY [facility] Stop: 05/07/19 08:59 Last Admin: 03/08/19 09:02 Dose: 400 iu Zolpidem Tartrate (Ambien) 10 mg PO HS PRN PRN Reason: Insomnia Stop: 05/06/19 20:59 - Procedures Procedures: Procedures Procedure Code Date PERFORMANCE OF URINARY FILTRATION, <6 HRS/DAY [id number] 11/04/18 Assessment/Plan - Problem List Patient Problems: All Active Problems NAUSEA, VOMITING, DIARRHEA WITH EPIGASTR (Acute) - Assessment Assessment: 28 YO MALE WITH KNOWN GASTROPARESIS HAD EGD THIS YEAR AT [facility] ALSO HAD GASTRIC EMPTYING STUDY AT [facility] HX OF CKD ON HD 1.AWAIT EGD AND GASTRIC EMPTYING RESULTS FROM OUTSIDE HOSPITAL 2.CONT ERYTHROMYCIN 250 MG IV Q8 3.INCREASE BENADRYL TO 50 MG IV Q8
[2019-03-09] MEDS: Vitamin B Complex w/Vitamin C Tab PO SCH (08:48)
[2019-03-09] MEDS: Heparin Sod 5,000Units/ML 5,000 UNITS/ML VIAL SUBQ SCH ×2 (08:48→21:06)
[2019-03-09] MEDS: SODIUM CHLORIDE 0.9% IV SCH ×2 (09:44→19:03)
[2019-03-09] MEDS: ERYTHROMYCIN LACT IV SCH ×2 (09:44→19:03)
--- NOTE | 2019-03-09 12:46 | Internal Medicine Prog Note ---
Internal Medicine Subjective - Subjective Patient seen and examined:: with staff, chart reviewed Patient is:: awake, verbal, interactive, in bed Patient Complaints of:: congestion, bloated Per staff patient has:: no adverse event, no episodes of fall, tolerating meds Internal Medicine Objective - Results Result Diagrams: 03/09/19 04:15 03/09/19 04:15 Recent Labs: Laboratory Last Values WBC 12.9 Th/cmm (4.8-10.8) H 03/09/19 04:15 RBC 3.38 Mil/cmm (4.30-5.70) L 03/09/19 04:15 Hgb 10.6 gm/dL (12-16) L 03/09/19 04:15 Hct 31.8 % (41.0-60) L 03/09/19 04:15 MCV 93.9 fl (80-99) 03/09/19 04:15 MCH 31.2 pg (26.0-30.0) H 03/09/19 04:15 MCHC Differential 33.2 pg (28.0-36.0) 03/09/19 04:15 RDW 15.7 % (11.5-20.0) 03/09/19 04:15 Plt Count 274 Th/cmm (150-400) 03/09/19 04:15 MPV 7.8 fl 03/09/19 04:15 Add Manual Diff YES 03/08/19 04:10 Neutrophils % 86.6 % (40.0-80.0) H 03/09/19 04:15 Band Neutrophils % 0 % (0-10) 03/09/19 04:15 Lymphocytes % 6.9 % (20.0-50.0) L 03/09/19 04:15 Monocytes % 5.9 % (2.0-10.0) 03/09/19 04:15 Eosinophils % 0.3 % (0.0-5.0) 03/09/19 04:15 Basophils % 0.3 % (0.0-2.0) 03/09/19 04:15 Neutrophils (Manual) 89 % (40-80) H 03/09/19 04:15 Lymphocytes 7 % (20-50) L 03/09/19 04:15 Monocytes 4 % (2-10) 03/09/19 04:15 Eosinophils 0 % (0-5) 03/09/19 04:15 Basophils 0 % (0-3) 03/09/19 04:15 Platelet Estimate ADEQUATE (NORMAL) 03/09/19 04:15 Smear Path Review Not Reportable 03/08/19 04:10 PT 9.7 SECONDS (9.5-11.5) 03/07/19 18:10 INR 0.93 (0.5-1.4) 03/07/19 18:10 PTT (Actin FS) 28.8 SECONDS (26.0-38.0) 03/07/19 18:10 Sodium 135 mEq/L (136-145) L 03/09/19 04:15 Potassium 3.6 mEq/L (3.5-5.1) 03/09/19 04:15 Chloride 97 mEq/L (98-107) L 03/09/19 04:15 Carbon Dioxide 20.1 mEq/L (21.0-31.0) L 03/09/19 04:15 Anion Gap 21.5 (7.0-16.0) H 03/09/19 04:15 BUN 46 mg/dL (7-25) H 03/09/19 04:15 Creatinine 10.3 mg/dL (0.7-1.3) H* 03/09/19 04:15 Est GFR ( Amer) 7.6 ml/min (>90) 03/09/19 04:15 Est GFR (Non-Af Amer) 6.3 ml/min 03/09/19 04:15 BUN/Creatinine Ratio 4.5 03/09/19 04:15 Glucose 220 mg/dL (70-105) H 03/09/19 04:15 POC Glucose 136 MG/DL (70 - 105) H 03/09/19 12:03 Whole Bld Lactic Acid 1.36 mmol/L (0.60-1.99) 03/07/19 18:10 Calcium 8.2 mg/dL (8.6-10.3) L 03/09/19 04:15 Total Bilirubin 0.4 mg/dL (0.3-1.0) 03/09/19 04:15 AST 7 U/L (13-39) L 03/09/19 04:15 ALT 4 U/L (7-52) L 03/09/19 04:15 Alkaline Phosphatase 112 U/L (34-104) H 03/09/19 04:15 B-Natriuretic Peptide 332.0 pg/mL (5.0-100.0) H 03/08/19 04:10 Total Protein 6.9 gm/dL (6.0-8.3) 03/09/19 04:15 Albumin 3.5 gm/dL (4.2-5.5) L 03/09/19 04:15 Globulin 3.4 gm/dL 03/09/19 04:15 Albumin/Globulin Ratio 1.0 (1.0-1.8) 03/09/19 04:15 Amylase 28 U/L (29-103) L 03/07/19 18:10 Lipase 16 U/L (11-82) 03/07/19 18:10 - Physical Exam Vitals and I&O: Vital Signs Temp 97.6 F 03/09/19 08:00 Pulse 68 03/09/19 08:00 Resp 19 03/09/19 08:00 BP 142/99 03/09/19 08:00 Pulse Ox 99 03/09/19 08:00 Intake & Output 03/08/19 03/09/19 03/09/19 18:59 06:59 18:59 Intake Total 2550 150 734.667 Output Total 4090 Balance -1540 150 734.667 Weight (lbs) 112.491 kg Intake: Intake, IV Amount 1050 150 734.667 D5-0.9%Ns 1,000 ml @ 80 1000 734.667 mls/hr IV .[id number] [facility] Rx #:[id number] Piperacillin Sodium/ 50 50 Tazobact 2.25 gm In Sodium Chloride 0.9% 50 ml @ 100 mls/hr IV Q8HR [facility] Rx#:[id number] metroNIDAZOLE 500mg/NS 100 100mL 500 mg In 100 ml @ 100 mls/hr IV Q12HR@0600, 1800 [facility] Rx#:[id number] Oral 1500 Output: Emesis 90 Hemodialysis 4000 Other: Weight Source Bedscale Active Medications: Current Medications Acetaminophen (Tylenol) 650 mg PO Q4H PRN PRN Reason: Mild Pain (1-3) or Fever >101 Stop: 05/06/19 20:59 Al Hydrox/Mg Hydrox/Simethicone (Maalox) 30 ml PO Q6H PRN PRN Reason: Dyspepsia Stop: 05/06/19 20:59 Dextrose (D50w) 50 ml IVP PRN PRN PRN Reason: Blood Glucose less than 70 Stop: 05/06/19 21:08 Dextrose (Glutose 40%) 18.75 gm PO PRN PRN PRN Reason: Blood Glucose less than 70 Stop: 05/06/19 21:08 Diphenhydramine HCl (Benadryl 50 Mg/Ml) 50 mg IVP Q8HR [facility] Stop: 05/08/19 12:59 Glucagon (Glucagen) 1 mg IM PRN PRN PRN Reason: Blood Glucose less than 70 Stop: 05/06/19 21:08 Heparin Sodium (Porcine) (Heparin) 5,000 units SUBQ Q12HR [facility] Stop: 05/06/19 20:59 Last Admin: 03/09/19 08:48 Dose: Not Given Hydromorphone HCl (Dilaudid) 1 mg IVP Q4HR PRN PRN Reason: Pain (Severe) Stop: 05/06/19 21:08 Last Admin: 03/09/19 09:52 Dose: 1 mg Dextrose/Sodium Chloride (D5-0.9%Ns) 1,000 mls @ 80 mls/hr IV .[id number] [facility] Stop: 05/06/19 20:59 Last Admin: 03/09/19 07:16 Dose: 80 mls/hr Metronidazole (Flagyl) 500 mg in 100 mls @ 100 mls/hr IV Q12HR@0600,1800 [facility]; Protocol Stop: 05/07/19 17:59 Last Admin: 03/09/19 05:04 Dose: 100 mls/hr Piperacillin Sod/Tazobactam (Sod 2.25 gm/ Sodium Chloride) 50 mls @ 100 mls/hr IV Q8HR [facility] Stop: 05/07/19 12:59 Last Admin: 03/09/19 04:11 Dose: 100 mls/hr Erythromycin Lactobionate 250 (mg/ Sodium Chloride) 100 mls @ 100 mls/hr IV Q8H [facility] Stop: 05/08/19 07:59 Last Admin: 03/09/19 09:44 Dose: 100 mls/hr Insulin Human Lispro (Humalog Insulin Sliding Scale) 0 units SUBQ ACHS [facility]; Protocol Stop: 05/07/19 07:29 Last Admin: 03/09/19 06:53 Dose: Not Given Metoprolol Tartrate (Lopressor) 50 mg PO BID [facility] Stop: 05/07/19 08:59 Last Admin: 03/09/19 08:48 Dose: Not Given Miscellaneous (Clinical Monitoring) 1 ea MC DAILY PRN PRN Reason: RENAL DOSING Stop: 05/07/19 08:08 Ondansetron HCl (Zofran) 4 mg IV Q8H PRN PRN Reason: Nausea / Vomiting Stop: 05/08/19 07:36 Sodium Bicarbonate (Sodium Bicarbonate) 650 mg PO BID [facility]; Protocol Stop: 05/07/19 08:59 Last Admin: 03/09/19 08:48 Dose: Not Given Valsartan (Diovan) 80 mg PO DAILY [facility] Stop: 05/07/19 12:50 Last Admin: 03/09/19 08:49 Dose: Not Given Vitamin B Complex/Vit C/Folic Acid (Vitamin B Complex W/Vitamin C) 1 tab PO DAILY [facility] Stop: 05/07/19 08:59 Last Admin: 03/09/19 08:48 Dose: Not Given Vitamin D (Vitamin D) 400 iu PO DAILY [facility] Stop: 05/07/19 08:59 Last Admin: 03/09/19 08:48 Dose: Not Given Zolpidem Tartrate (Ambien) 10 mg PO HS PRN PRN Reason: Insomnia Stop: 05/06/19 20:59 General: alert HEENT: NC/AT, PERRLA Neck: Supple, No JVD, No LAD Lungs: rales Cardiovascular: RRR, Normal S1, Normal S2, without murmur Abdomen: soft, globular, positive bowel sound Extremities: excoriation Neurological: no change - Procedures Procedures: Procedures Procedure Code Date PERFORMANCE OF URINARY FILTRATION, <6 HRS/DAY [id number] 11/04/18 Internal Medicine Assmt/Plan - Assessment Assessment: ASSESSMENT AND PLAN: Abdominal pain of unclear etiology, leukocytosis, sepsis, diabetes, hypertension, end-stage renal disease, and anemia. obesity ?gastroparesis - Plan Plan: PLAN: We will empirically start the patient on osyn as well as Flagyl. We will provide the patient with adequate pain control, ADA diet, and insulin sliding scale. We will continue to monitor the patient closely. gi and nephro consulted mother at bedside Nutritional Asmnt/Malnutr-PDOC - Dietary Evaluation Malnutrition Findings (Please click <Entered> for more info): Nutritional Asmnt/Malnutrition Start: 03/08/19 14: 51 Text: Status: Complete Freq: Protocol: Document 03/08/19 14:51 BILLIE (Rec: 03/08/19 14:56 BILLIE [email or web address]) Nutritional Asmnt/Malnutrition Patient General Information Nutritional Screening Low Risk Diagnosis Abdominal pain, Sepsis Pertinent Medical Hx/Surgical Hx HTN, DM, ESRD (on hemodialysis ) Subjective Information Pt is a 28-year-old male admitted from home on 03/07 c/o upper abdominal pain with intermittent N/V x2 days. Pt has ESRD and is on hemodialysis. Per nurse note ( 03/08), Pt felt nauseas this morning and was given Zofran, no emesis was noted. Spoke with Pt at bedside with family , Pt was having dialysis at this time. Stated he still felt nauseas and just wanted some fruit. Stated he only ate some peaches at breakfast and did not eat any lunch. I brought Pt a fruit cup and Nepro supplement shake. Pt stated he understood his Renal diet and did not need any additional education or information. Will continue to monitor PO intake and provide Nepro shakes with meals. HT: 510 WT: 249 LB (113.18 kg) ABW: 187 LB (84.89kg) BMI: 35.76 (Obese II) GI: nausea, abdominal pain, large, round BM: Not Noted I/O: 50/Not Noted Skin: warm, dry, elastic Wound: nose skin tear with scab Flako: 18 Diet Order: Renal, NCS Estimated Energy Needs: (HD, ABW) 2970 kcals (35 kcals/kg) 102-119 Pro (1.2-1.4g/kg) Fluids: per MD order Current Diet Order/ Nutrition Support Renal, NCS Pertinent Medications Maalox, D50w (PRN), Glutose 40 % (PRN), D5-0.9%ns, Glucagen ( PRN), INS-SS, sodium bicarbonate, Vitamin B Complex w/ Vitamin C, Vitamin D Pertinent Labs 03/08: Hgb/Hct 10.3/30.8, Na 129, BUN/Cr 71/13.2, Glucose 172, Ca 8.4, AST 6, ALT 5, Alk Phos 117, BNP 332, Alb 3.6 POC Glucose (Last 24 hours): 169, 156 03/07: Hgb/Hct 11.3/33.9, Na 127, BUN/Cr 68/12.9, Glucose 147, AST 9, ALT 6, Alk Phos 136, Amylase 28 Nutritional Hx/Data Height 1.78 m Height (Calculated Centimeters) 177.8 Current Weight (lbs) 112.945 kg Weight (Calculated Kilograms) 112.9 Weight (Calculated Grams) 916170.5 [place] Body Weight 166lb (75.45kg) % [place] Body Weight 150 Body Mass Index (BMI) 35.7 Weight Status Obese GI Symptoms GI Symptoms Nausea Last BM Not Noted Skin Integrity/Comment: Warm, dry, elastic Wound: nose skin tear with scab Flako: 18 Current %PO Negligible < 25% Estimated Nutritional Goals BEE in Kcals: Adj wt of IBW Calories/Kcals/Kg 35 Kcals Calculated 2970 Protein: Adj wt of IBW Protein g/k.2-1.4 Protein Calculated 102-119 Fluid: ml per MD order Nutritional Problem 3. Problem Problem Inadequate energy and Pro intake Etiology r/t poor appetite/nausea Signs/Symptoms: aeb Pt self-report 2. Problem Problem Higher calorie and protein needs Etiology r/t Pt Hx ESRD on HD Signs/Symptoms: aeb diet order Renal 80gm Pro 1. Problem Problem Altered nutrition related labs Etiology r/t Hx ESRD and DM Signs/Symptoms: aeb lab results (03/08) Na 129, BUN/Cr 71/13.2, Glucose 172, Ca 8.4, AST 6, ALT 5, Alk Phos 117, Alb 3.6 Malnutrition Related to Morbid Obesity Malnutrition related to morbid obesity No Intervention/Recommendation Comments 1. Continue with Renal, NCS diet as ordered. 2. Continue antihyperglycemic medications for glucose control per MD order. 3. Add Nepro nutritional shake to meals BID until PO intake increases to meet nutritional needs (completed). Expected Outcomes/Goals Expected Outcomes/Goals 1. PO intake to meet 75% of nutritional needs. 2. Monitor PO intake, wt, skin integrity, and nutrition related labs to trend WNL. 3. F/U as high risk in 2-3 days, 03/10-03/11
--- NOTE | 2019-03-09 18:34 | General Progress Note ---
Subjective - Review of Systems Service Date: 03/09/19 Subjective: feels better Objective - Results Result Diagrams: 03/09/19 04:15 03/09/19 04:15 Recent Labs: Laboratory Last Values WBC 12.9 Th/cmm (4.8-10.8) H 03/09/19 04:15 RBC 3.38 Mil/cmm (4.30-5.70) L 03/09/19 04:15 Hgb 10.6 gm/dL (12-16) L 03/09/19 04:15 Hct 31.8 % (41.0-60) L 03/09/19 04:15 MCV 93.9 fl (80-99) 03/09/19 04:15 MCH 31.2 pg (26.0-30.0) H 03/09/19 04:15 MCHC Differential 33.2 pg (28.0-36.0) 03/09/19 04:15 RDW 15.7 % (11.5-20.0) 03/09/19 04:15 Plt Count 274 Th/cmm (150-400) 03/09/19 04:15 MPV 7.8 fl 03/09/19 04:15 Add Manual Diff YES 03/08/19 04:10 Neutrophils % 86.6 % (40.0-80.0) H 03/09/19 04:15 Band Neutrophils % 0 % (0-10) 03/09/19 04:15 Lymphocytes % 6.9 % (20.0-50.0) L 03/09/19 04:15 Monocytes % 5.9 % (2.0-10.0) 03/09/19 04:15 Eosinophils % 0.3 % (0.0-5.0) 03/09/19 04:15 Basophils % 0.3 % (0.0-2.0) 03/09/19 04:15 Neutrophils (Manual) 89 % (40-80) H 03/09/19 04:15 Lymphocytes 7 % (20-50) L 03/09/19 04:15 Monocytes 4 % (2-10) 03/09/19 04:15 Eosinophils 0 % (0-5) 03/09/19 04:15 Basophils 0 % (0-3) 03/09/19 04:15 Platelet Estimate ADEQUATE (NORMAL) 03/09/19 04:15 Smear Path Review Not Reportable 03/08/19 04:10 PT 9.7 SECONDS (9.5-11.5) 03/07/19 18:10 INR 0.93 (0.5-1.4) 03/07/19 18:10 PTT (Actin FS) 28.8 SECONDS (26.0-38.0) 03/07/19 18:10 Sodium 135 mEq/L (136-145) L 03/09/19 04:15 Potassium 3.6 mEq/L (3.5-5.1) 03/09/19 04:15 Chloride 97 mEq/L (98-107) L 03/09/19 04:15 Carbon Dioxide 20.1 mEq/L (21.0-31.0) L 03/09/19 04:15 Anion Gap 21.5 (7.0-16.0) H 03/09/19 04:15 BUN 46 mg/dL (7-25) H 03/09/19 04:15 Creatinine 10.3 mg/dL (0.7-1.3) H* 03/09/19 04:15 Est GFR ( Amer) 7.6 ml/min (>90) 03/09/19 04:15 Est GFR (Non-Af Amer) 6.3 ml/min 03/09/19 04:15 BUN/Creatinine Ratio 4.5 03/09/19 04:15 Glucose 220 mg/dL (70-105) H 03/09/19 04:15 POC Glucose 115 MG/DL (70 - 105) H 03/09/19 17:39 Whole Bld Lactic Acid 1.36 mmol/L (0.60-1.99) 03/07/19 18:10 Calcium 8.2 mg/dL (8.6-10.3) L 03/09/19 04:15 Total Bilirubin 0.4 mg/dL (0.3-1.0) 03/09/19 04:15 AST 7 U/L (13-39) L 03/09/19 04:15 ALT 4 U/L (7-52) L 03/09/19 04:15 Alkaline Phosphatase 112 U/L (34-104) H 03/09/19 04:15 B-Natriuretic Peptide 332.0 pg/mL (5.0-100.0) H 03/08/19 04:10 Total Protein 6.9 gm/dL (6.0-8.3) 03/09/19 04:15 Albumin 3.5 gm/dL (4.2-5.5) L 03/09/19 04:15 Globulin 3.4 gm/dL 03/09/19 04:15 Albumin/Globulin Ratio 1.0 (1.0-1.8) 03/09/19 04:15 Amylase 28 U/L (29-103) L 03/07/19 18:10 Lipase 16 U/L (11-82) 03/07/19 18:10 - Physical Exam Vitals and I&O: Vital Signs Temp 98.2 F 03/09/19 12:00 Pulse 91 03/09/19 17:19 Resp 19 03/09/19 12:00 BP 161/113 03/09/19 17:19 Pulse Ox 100 03/09/19 12:00 Intake & Output 03/08/19 03/09/19 03/09/19 18:59 06:59 18:59 Intake Total 2550 300 884.667 Output Total 4090 Balance -1540 300 884.667 Weight (lbs) 112.491 kg Intake: Intake, IV Amount 1050 300 884.667 D5-0.9%Ns 1,000 ml @ 80 1000 734.667 mls/hr IV .[id number] [facility] Rx #:[id number] Erythromycin Lact 250 mg 100 In Sodium Chloride 0.9% 100 ml @ 100 mls/hr IV Q8H [facility] Rx#:[id number] Piperacillin Sodium/ 50 100 50 Tazobact 2.25 gm In Sodium Chloride 0.9% 50 ml @ 100 mls/hr IV Q8HR [facility] Rx#:[id number] metroNIDAZOLE 500mg/NS 200 100mL 500 mg In 100 ml @ 100 mls/hr IV Q12HR@0600, 1800 [facility] Rx#:[id number] Oral 1500 Output: Emesis 90 Hemodialysis 4000 Other: Weight Source Bedscale Active Medications: Current Medications Acetaminophen (Tylenol) 650 mg PO Q4H PRN PRN Reason: Mild Pain (1-3) or Fever >101 Stop: 05/06/19 20:59 Al Hydrox/Mg Hydrox/Simethicone (Maalox) 30 ml PO Q6H PRN PRN Reason: Dyspepsia Stop: 05/06/19 20:59 Dextrose (D50w) 50 ml IVP PRN PRN PRN Reason: Blood Glucose less than 70 Stop: 05/06/19 21:08 Dextrose (Glutose 40%) 18.75 gm PO PRN PRN PRN Reason: Blood Glucose less than 70 Stop: 05/06/19 21:08 Diphenhydramine HCl (Benadryl 50 Mg/Ml) 50 mg IVP Q8HR [facility] Stop: 05/08/19 12:59 Last Admin: 03/09/19 17:07 Dose: 50 mg Glucagon (Glucagen) 1 mg IM PRN PRN PRN Reason: Blood Glucose less than 70 Stop: 05/06/19 21:08 Heparin Sodium (Porcine) (Heparin) 5,000 units SUBQ Q12HR [facility] Stop: 05/06/19 20:59 Last Admin: 03/09/19 08:48 Dose: Not Given Hydromorphone HCl (Dilaudid) 1 mg IVP Q4HR PRN PRN Reason: Pain (Severe) Stop: 05/06/19 21:08 Last Admin: 03/09/19 14:54 Dose: 1 mg Metronidazole (Flagyl) 500 mg in 100 mls @ 100 mls/hr IV Q12HR@0600,1800 [facility]; Protocol Stop: 05/07/19 17:59 Last Admin: 03/09/19 17:06 Dose: 100 mls/hr Piperacillin Sod/Tazobactam (Sod 2.25 gm/ Sodium Chloride) 50 mls @ 100 mls/hr IV Q8HR [facility] Stop: 05/07/19 12:59 Last Infusion: 03/09/19 13:56 Dose: Infused Erythromycin Lactobionate 250 (mg/ Sodium Chloride) 100 mls @ 100 mls/hr IV Q8H [facility] Stop: 05/08/19 07:59 Last Infusion: 03/09/19 10:44 Dose: Infused Dextrose/Sodium Chloride (D5-0.9%Ns) 1,000 mls @ 40 mls/hr IV .Q24H [facility] Stop: 05/08/19 12:59 Insulin Human Lispro (Humalog Insulin Sliding Scale) 0 units SUBQ ACHS [facility]; Protocol Stop: 05/07/19 07:29 Last Admin: 03/09/19 17:42 Dose: Not Given Metoprolol Tartrate (Lopressor) 50 mg PO BID [facility] Stop: 05/07/19 08:59 Last Admin: 03/09/19 17:19 Dose: 50 mg Miscellaneous (Clinical Monitoring) 1 ea MC DAILY PRN PRN Reason: RENAL DOSING Stop: 05/07/19 08:08 Ondansetron HCl (Zofran) 4 mg IV Q8H PRN PRN Reason: Nausea / Vomiting Stop: 05/08/19 07:36 Sodium Bicarbonate (Sodium Bicarbonate) 650 mg PO BID [facility]; Protocol Stop: 05/07/19 08:59 Last Admin: 03/09/19 17:07 Dose: 650 mg Valsartan (Diovan) 80 mg PO DAILY [facility] Stop: 05/07/19 12:50 Last Admin: 03/09/19 08:49 Dose: Not Given Vitamin B Complex/Vit C/Folic Acid (Vitamin B Complex W/Vitamin C) 1 tab PO DAILY [facility] Stop: 05/07/19 08:59 Last Admin: 03/09/19 08:48 Dose: Not Given Vitamin D (Vitamin D) 400 iu PO DAILY [facility] Stop: 05/07/19 08:59 Last Admin: 03/09/19 08:48 Dose: Not Given Zolpidem Tartrate (Ambien) 10 mg PO HS PRN PRN Reason: Insomnia Stop: 05/06/19 20:59 General: Alert, Oriented x3, No acute distress HEENT: Atraumatic, PERRLA, Other (redness around L eye and nasal bridge is iproving) Neck: Supple, no JVD Cardiovascular: Regular rate, Normal S1, Normal S2 Lungs: Clear to auscultation, Normal air movement Abdomen: Soft, no Tender, no Distended, no Mass Extremities: no Edema Neurological: Normal speech - Procedures Procedures: Procedures Procedure Code Date PERFORMANCE OF URINARY FILTRATION, <6 HRS/DAY [id number] 11/04/18 Assessment/Plan - Problem List Patient Problems: All Active Problems NAUSEA, VOMITING, DIARRHEA WITH EPIGASTR (Acute) - Assessment Assessment: ESRD/DIALYSIS STATUS FACIAL CELLULITIS DIARRHEA ANEMIA W ESRD DM2 W ESRD HTN W ESRD - Plan Plan: HD TOMORROW CONT ABX SUPPORTIVE MGMT Nutritional Asmnt/Malnutr-PDOC - Dietary Evaluation Malnutrition Findings (Please click <Entered> for more info): Nutritional Asmnt/Malnutrition Start: 03/08/19 14: 51 Text: Status: Complete Freq: Protocol: Document 03/08/19 14:51 BILLIE (Rec: 03/08/19 14:56 BILLIE [email or web address]) Nutritional Asmnt/Malnutrition Patient General Information Nutritional Screening Low Risk Diagnosis Abdominal pain, Sepsis Pertinent Medical Hx/Surgical Hx HTN, DM, ESRD (on hemodialysis ) Subjective Information Pt is a 28-year-old male admitted from home on 03/07 c/o upper abdominal pain with intermittent N/V x2 days. Pt has ESRD and is on hemodialysis. Per nurse note ( 03/08), Pt felt nauseas this morning and was given Zofran, no emesis was noted. Spoke with Pt at bedside with family , Pt was having dialysis at this time. Stated he still felt nauseas and just wanted some fruit. Stated he only ate some peaches at breakfast and did not eat any lunch. I brought Pt a fruit cup and Nepro supplement shake. Pt stated he understood his Renal diet and did not need any additional education or information. Will continue to monitor PO intake and provide Nepro shakes with meals. HT: 510 WT: 249 LB (113.18 kg) ABW: 187 LB (84.89kg) BMI: 35.76 (Obese II) GI: nausea, abdominal pain, large, round BM: Not Noted I/O: 50/Not Noted Skin: warm, dry, elastic Wound: nose skin tear with scab Flako: 18 Diet Order: Renal, NCS Estimated Energy Needs: (HD, ABW) 2970 kcals (35 kcals/kg) 102-119 Pro (1.2-1.4g/kg) Fluids: per MD order Current Diet Order/ Nutrition Support Renal, NCS Pertinent Medications Maalox, D50w (PRN), Glutose 40 % (PRN), D5-0.9%ns, Glucagen ( PRN), INS-SS, sodium bicarbonate, Vitamin B Complex w/ Vitamin C, Vitamin D Pertinent Labs 03/08: Hgb/Hct 10.3/30.8, Na 129, BUN/Cr 71/13.2, Glucose 172, Ca 8.4, AST 6, ALT 5, Alk Phos 117, BNP 332, Alb 3.6 POC Glucose (Last 24 hours): 169, 156 03/07: Hgb/Hct 11.3/33.9, Na 127, BUN/Cr 68/12.9, Glucose 147, AST 9, ALT 6, Alk Phos 136, Amylase 28 Nutritional Hx/Data Height 1.78 m Height (Calculated Centimeters) 177.8 Current Weight (lbs) 112.945 kg Weight (Calculated Kilograms) 112.9 Weight (Calculated Grams) 904278.5 [place] Body Weight 166lb (75.45kg) % [place] Body Weight 150 Body Mass Index (BMI) 35.7 Weight Status Obese GI Symptoms GI Symptoms Nausea Last BM Not Noted Skin Integrity/Comment: Warm, dry, elastic Wound: nose skin tear with scab Flako: 18 Current %PO Negligible < 25% Estimated Nutritional Goals BEE in Kcals: Adj wt of IBW Calories/Kcals/Kg 35 Kcals Calculated 2970 Protein: Adj wt of IBW Protein g/k.2-1.4 Protein Calculated 102-119 Fluid: ml per MD order Nutritional Problem 3. Problem Problem Inadequate energy and Pro intake Etiology r/t poor appetite/nausea Signs/Symptoms: aeb Pt self-report 2. Problem Problem Higher calorie and protein needs Etiology r/t Pt Hx ESRD on HD Signs/Symptoms: aeb diet order Renal 80gm Pro 1. Problem Problem Altered nutrition related labs Etiology r/t Hx ESRD and DM Signs/Symptoms: aeb lab results (03/08) Na 129, BUN/Cr 71/13.2, Glucose 172, Ca 8.4, AST 6, ALT 5, Alk Phos 117, Alb 3.6 Malnutrition Related to Morbid Obesity Malnutrition related to morbid obesity No Intervention/Recommendation Comments 1. Continue with Renal, NCS diet as ordered. 2. Continue antihyperglycemic medications for glucose control per MD order. 3. Add Nepro nutritional shake to meals BID until PO intake increases to meet nutritional needs (completed). Expected Outcomes/Goals Expected Outcomes/Goals 1. PO intake to meet 75% of nutritional needs. 2. Monitor PO intake, wt, skin integrity, and nutrition related labs to trend WNL. 3. F/U as high risk in 2-3 days, 03/10-03/11
[2019-03-09] MEDS ORDERED: Vancomycin HCl 1.5 GM in Sodium Chloride 0.9% 500 ML IV ONE (20:00)
[2019-03-10] MEDS ORDERED: Heparin Sod 1,000 Units/mL 10ml HD SCH
[2019-03-10] MEDS: ERYTHROMYCIN LACT IV SCH ×4 (00:49→23:59)
[2019-03-10] MEDS: SODIUM CHLORIDE 0.9% IV SCH ×4 (00:49→23:59)
[2019-03-10] MEDS: HYDROmorphone 1 mg/mL 1mL Syr IVP PRN ×6 (02:42→22:30)
[2019-03-10] MEDS: Heparin Sod 5,000Units/ML 5,000 UNITS/ML VIAL HD SCH ×2 (04:00→09:45)
[2019-03-10] MEDS: metroNIDAZOLE 500 mg/100 mL Premix Bag IV SCH ×2 (05:45→18:32)
[2019-03-10 06:14] LABS: % BASOPHILS 0.7 % (0.0-2.0); % EOSINOPHILS 1.1 % (0.0-5.0); % MONOCYTES 6.9 % (2.0-10.0); % NEUTROPHILS 75.3 % (40.0-80.0); BASOPHILE ABSOLUTE 0.1 Th/cumm (0-0.2); EOSINOPHILE ABSOLUTE 0.1 Th/cmm (0.1-0.4); HEMATOCRIT 31.5 % (41.0-60); HEMOGLOBIN 10.3 gm/dL (12-16); MEAN CELL VOLUME 92.7 fl (80-99); MEAN CORPUSCULAR HEMOGLOBIN 30.3 pg (26.0-30.0); MEAN CORPUSCULAR HGB CONC 32.7 pg (28.0-36.0); MONOCYTE ABSOLUTE 0.8 Th/cmm (0.3-1.0); NEUTROPHILE ABSOLUTE 9.2 Th/cmm (1.8-8.0); PLATELET COUNT 299 Th/cmm (150-400); RED CELL DISTRIBUTION WIDTH 15.7 % (11.5-20.0); WHITE BLOOD COUNT 12.2 Th/cmm (4.8-10.8)
[2019-03-10 06:27] LABS: ALB/GLOB RATIO 1.1 (1.0-1.8); ALBUMIN 3.4 gm/dL (4.2-5.5); ANION GAP 20.5 (7.0-16.0); BILIRUBIN,TOTAL 0.4 mg/dL (0.3-1.0); CALCIUM SERUM 8.4 mg/dL (8.6-10.3); CARBON DIOXIDE 19.5 mEq/L (21.0-31.0); GFR AFRICAN-AMERICAN 6.5 ml/min (>90); GFR NON AFRICAN-AMERICAN 5.4 ml/min; MAGNESIUM 2.4 mg/dL (1.9-2.7); TOTAL PROTEIN,SERUM 6.6 gm/dL (6.0-8.3)
[2019-03-10 06:56] LABS: CREATININE - SERUM 11.8 mg/dL (0.7-1.3)
[2019-03-10] MEDS: INSULIN LISPRO SLIDING SCALE 100 UNITS/ML UNIT SUBQ SCH ×4 (07:08→20:48)
[2019-03-10 08:06] LABS: A1C 5.4 % (4.8-5.6)
--- NOTE | 2019-03-10 08:55 | GI Progress Note ---
Subjective - Review of Systems Service Date: 03/10/19 Subjective: Still nauseous, although he tolerated small amount of breakfast GI OBJECTIVE - Results Result Diagrams: 03/10/19 05:40 03/10/19 05:40 Recent Labs: Laboratory Last Values WBC 12.2 Th/cmm (4.8-10.8) H 03/10/19 05:40 RBC 3.40 Mil/cmm (4.30-5.70) L 03/10/19 05:40 Hgb 10.3 gm/dL (12-16) L 03/10/19 05:40 Hct 31.5 % (41.0-60) L 03/10/19 05:40 MCV 92.7 fl (80-99) 03/10/19 05:40 MCH 30.3 pg (26.0-30.0) H 03/10/19 05:40 MCHC Differential 32.7 pg (28.0-36.0) 03/10/19 05:40 RDW 15.7 % (11.5-20.0) 03/10/19 05:40 Plt Count 299 Th/cmm (150-400) 03/10/19 05:40 MPV 7.9 fl 03/10/19 05:40 Add Manual Diff YES 03/08/19 04:10 Neutrophils % 75.3 % (40.0-80.0) 03/10/19 05:40 Band Neutrophils % 0 % (0-10) 03/09/19 04:15 Lymphocytes % 16.0 % (20.0-50.0) L 03/10/19 05:40 Monocytes % 6.9 % (2.0-10.0) 03/10/19 05:40 Eosinophils % 1.1 % (0.0-5.0) 03/10/19 05:40 Basophils % 0.7 % (0.0-2.0) 03/10/19 05:40 Neutrophils (Manual) 89 % (40-80) H 03/09/19 04:15 Lymphocytes 7 % (20-50) L 03/09/19 04:15 Monocytes 4 % (2-10) 03/09/19 04:15 Eosinophils 0 % (0-5) 03/09/19 04:15 Basophils 0 % (0-3) 03/09/19 04:15 Platelet Estimate ADEQUATE (NORMAL) 03/09/19 04:15 Smear Path Review Not Reportable 03/08/19 04:10 PT 9.7 SECONDS (9.5-11.5) 03/07/19 18:10 INR 0.93 (0.5-1.4) 03/07/19 18:10 PTT (Actin FS) 28.8 SECONDS (26.0-38.0) 03/07/19 18:10 Sodium 134 mEq/L (136-145) L 03/10/19 05:40 Potassium 4.0 mEq/L (3.5-5.1) 03/10/19 05:40 Chloride 98 mEq/L (98-107) 03/10/19 05:40 Carbon Dioxide 19.5 mEq/L (21.0-31.0) L 03/10/19 05:40 Anion Gap 20.5 (7.0-16.0) H 03/10/19 05:40 BUN 57 mg/dL (7-25) H 03/10/19 05:40 Creatinine 11.8 mg/dL (0.7-1.3) H* 03/10/19 05:40 Est GFR ( Amer) 6.5 ml/min (>90) 03/10/19 05:40 Est GFR (Non-Af Amer) 5.4 ml/min 03/10/19 05:40 BUN/Creatinine Ratio 4.8 03/10/19 05:40 Glucose 118 mg/dL (70-105) H 03/10/19 05:40 POC Glucose 135 MG/DL (70 - 105) H 03/09/19 21:12 Whole Bld Lactic Acid 1.36 mmol/L (0.60-1.99) 03/07/19 18:10 Calcium 8.4 mg/dL (8.6-10.3) L 03/10/19 05:40 Magnesium 2.4 mg/dL (1.9-2.7) 03/10/19 05:40 Total Bilirubin 0.4 mg/dL (0.3-1.0) 03/10/19 05:40 AST 7 U/L (13-39) L 03/10/19 05:40 ALT 4 U/L (7-52) L 03/10/19 05:40 Alkaline Phosphatase 99 U/L (34-104) 03/10/19 05:40 B-Natriuretic Peptide 873.0 pg/mL (5.0-100.0) H 03/10/19 05:40 Total Protein 6.6 gm/dL (6.0-8.3) 03/10/19 05:40 Albumin 3.4 gm/dL (4.2-5.5) L 03/10/19 05:40 Globulin 3.2 gm/dL 03/10/19 05:40 Albumin/Globulin Ratio 1.1 (1.0-1.8) 03/10/19 05:40 Amylase 28 U/L (29-103) L 03/07/19 18:10 Lipase 16 U/L (11-82) 03/07/19 18:10 Random Vancomycin 24.4 ug/mL (5.0-40.0) 03/10/19 05:40 - Physical Exam Vitals and I&O: Vital Signs Temp 98.2 F 03/10/19 08:00 Pulse 72 03/10/19 08:44 Resp 20 03/10/19 08:44 BP 165/91 03/10/19 08:00 Pulse Ox 98 03/10/19 08:44 Intake & Output 03/09/19 03/10/19 03/10/19 18:59 06:59 18:59 Intake Total 1909.667 510 Balance 1909.667 510 Weight (lbs) 112.491 kg 112.491 kg Intake: Intake, IV Amount 984.667 150 D5-0.9%Ns 1,000 ml @ 80 734.667 mls/hr IV .[id number] [facility] Rx #:[id number] Erythromycin Lact 250 mg 100 100 In Sodium Chloride 0.9% 100 ml @ 100 mls/hr IV Q8H [facility] Rx#:[id number] Piperacillin Sodium/ 50 50 Tazobact 2.25 gm In Sodium Chloride 0.9% 50 ml @ 100 mls/hr IV Q8HR [facility] Rx#:[id number] metroNIDAZOLE 500mg/NS 100 100mL 500 mg In 100 ml @ 100 mls/hr IV Q12HR@0600, 1800 [facility] Rx#:[id number] Oral 925 360 Other: # Voids 0 # Bowel Movements 0 1 Weight Source Bedscale Bedscale Active Medications: Current Medications Acetaminophen (Tylenol) 650 mg PO Q4H PRN PRN Reason: Mild Pain (1-3) or Fever >101 Stop: 05/06/19 20:59 Last Admin: 03/09/19 21:05 Dose: 650 mg Al Hydrox/Mg Hydrox/Simethicone (Maalox) 30 ml PO Q6H PRN PRN Reason: Dyspepsia Stop: 05/06/19 20:59 Dextrose (D50w) 50 ml IVP PRN PRN PRN Reason: Blood Glucose less than 70 Stop: 05/06/19 21:08 Dextrose (Glutose 40%) 18.75 gm PO PRN PRN PRN Reason: Blood Glucose less than 70 Stop: 05/06/19 21:08 Diphenhydramine HCl (Benadryl 50 Mg/Ml) 50 mg IVP Q8HR [facility] Stop: 05/08/19 12:59 Last Admin: 03/10/19 05:43 Dose: 50 mg Glucagon (Glucagen) 1 mg IM PRN PRN PRN Reason: Blood Glucose less than 70 Stop: 05/06/19 21:08 Heparin Sodium (Porcine) (Heparin) 5,000 units SUBQ Q12HR [facility] Stop: 05/06/19 20:59 Last Admin: 03/09/19 21:06 Dose: Not Given Heparin Sodium (Porcine) (Heparin Sodium) 0 units HD [facility] [place] Stop: 03/11/19 00:00 Last Admin: 03/10/19 00:13 Dose: Not Given Heparin Sodium (Porcine) (Heparin) 5,000 units HD [facility] [place] Stop: 03/11/19 00:00 Last Admin: 03/10/19 04:00 Dose: Not Given Hydromorphone HCl (Dilaudid) 1 mg IVP Q4HR PRN PRN Reason: Pain (Severe) Stop: 05/06/19 21:08 Last Admin: 03/10/19 06:41 Dose: 1 mg Metronidazole (Flagyl) 500 mg in 100 mls @ 100 mls/hr IV Q12HR@0600,1800 [facility]; Protocol Stop: 05/07/19 17:59 Last Admin: 03/10/19 05:45 Dose: 100 mls/hr Piperacillin Sod/Tazobactam (Sod 2.25 gm/ Sodium Chloride) 50 mls @ 100 mls/hr IV Q8HR [facility] Stop: 05/07/19 12:59 Last Admin: 03/10/19 05:43 Dose: 100 mls/hr Erythromycin Lactobionate 250 (mg/ Sodium Chloride) 100 mls @ 100 mls/hr IV Q8H [facility] Stop: 05/08/19 07:59 Last Admin: 03/10/19 00:49 Dose: 100 mls/hr Dextrose/Sodium Chloride (D5-0.9%Ns) 1,000 mls @ 40 mls/hr IV .Q24H [facility] Stop: 05/08/19 12:59 Insulin Human Lispro (Humalog Insulin Sliding Scale) 0 units SUBQ ACHS [facility]; Protocol Stop: 05/07/19 07:29 Last Admin: 03/10/19 07:08 Dose: Not Given Metoprolol Tartrate (Lopressor) 50 mg PO BID [facility] Stop: 05/07/19 08:59 Last Admin: 03/09/19 17:19 Dose: 50 mg Miscellaneous (Clinical Monitoring) 1 ea DAILY PRN PRN Reason: RENAL DOSING Stop: 05/07/19 08:08 Miscellaneous (Vancomycin Iv Per Pharmacy) 1 ea PRN PRN PRN Reason: PROTOCOL Stop: 05/08/19 18:53 Ondansetron HCl (Zofran) 4 mg IV Q8H PRN PRN Reason: Nausea / Vomiting Stop: 05/08/19 07:36 Sodium Bicarbonate (Sodium Bicarbonate) 650 mg PO BID [facility]; Protocol Stop: 05/07/19 08:59 Last Admin: 03/09/19 17:07 Dose: 650 mg Valsartan (Diovan) 80 mg PO DAILY [facility] Stop: 05/07/19 12:50 Last Admin: 03/09/19 08:49 Dose: Not Given Vitamin B Complex/Vit C/Folic Acid (Vitamin B Complex W/Vitamin C) 1 tab PO DAILY [facility] Stop: 05/07/19 08:59 Last Admin: 03/09/19 08:48 Dose: Not Given Vitamin D (Vitamin D) 400 iu PO DAILY [facility] Stop: 05/07/19 08:59 Last Admin: 03/09/19 08:48 Dose: Not Given Zolpidem Tartrate (Ambien) 10 mg PO HS PRN PRN Reason: Insomnia Stop: 05/06/19 20:59 Last Admin: 03/09/19 23:44 Dose: 10 mg General: Alert, Oriented x3 HEENT: Atraumatic Neck: Supple Cardiovascular: Regular rate Abdomen: Bowel sounds, Soft, no Tender, no Hepatomegaly, no Splenomegaly, no Distended, no Rebound, no Mass Skin: no Rash Psych/Mental Status: Mental status NL - Procedures Procedures: Procedures Procedure Code Date PERFORMANCE OF URINARY FILTRATION, <6 HRS/DAY [id number] 11/04/18 Assessment/Plan - Problem List Patient Problems: All Active Problems NAUSEA, VOMITING, DIARRHEA WITH EPIGASTR (Acute) - Assessment Assessment: 28 YO MALE WITH KNOWN GASTROPARESIS [facility] STUDY AT [place] [facility] HX OF CKD ON HD Pt is well known to our service, and is seen at ALL the surrounding hospitals. His gastroparesis is multifactorial, and due to diabetes, chronic opiate use, and CKD. Unless he SIGNIFICANTLTY comes off opiates, I doubt this will get better in any meaningful way. He no longer can take reglan due to extra pyramidal side effects. - CONT ERYTHROMYCIN 250 MG IV Q8 - INCREASE BENADRYL TO 50 MG IV Q8 - Try and stop opiates with help of pain mgmt. - control diabetes - would consider referring this pt to a motility center at [facility] or [facility] to consider other possible interventions such as experimental medications, stomach pacemaker, or G-POEM. This would be as outpt - diet as tolerated
[2019-03-10] MEDS: Vitamin B Complex w/Vitamin C Tab PO SCH (09:41)
[2019-03-10] MEDS: Heparin Sod 5,000Units/ML 5,000 UNITS/ML VIAL SUBQ SCH ×2 (09:41→20:48)
--- NOTE | 2019-03-10 13:14 | Internal Medicine Prog Note ---
Internal Medicine Subjective - Subjective Patient seen and examined:: with staff, chart reviewed Patient is:: awake, verbal, interactive, in bed Patient Complaints of:: congestion, bloated Per staff patient has:: no adverse event, no episodes of fall, tolerating meds Internal Medicine Objective - Results Result Diagrams: 03/10/19 05:40 03/10/19 05:40 Recent Labs: Laboratory Last Values WBC 12.2 Th/cmm (4.8-10.8) H 03/10/19 05:40 RBC 3.40 Mil/cmm (4.30-5.70) L 03/10/19 05:40 Hgb 10.3 gm/dL (12-16) L 03/10/19 05:40 Hct 31.5 % (41.0-60) L 03/10/19 05:40 MCV 92.7 fl (80-99) 03/10/19 05:40 MCH 30.3 pg (26.0-30.0) H 03/10/19 05:40 MCHC Differential 32.7 pg (28.0-36.0) 03/10/19 05:40 RDW 15.7 % (11.5-20.0) 03/10/19 05:40 Plt Count 299 Th/cmm (150-400) 03/10/19 05:40 MPV 7.9 fl 03/10/19 05:40 Add Manual Diff YES 03/08/19 04:10 Neutrophils % 75.3 % (40.0-80.0) 03/10/19 05:40 Band Neutrophils % 0 % (0-10) 03/09/19 04:15 Lymphocytes % 16.0 % (20.0-50.0) L 03/10/19 05:40 Monocytes % 6.9 % (2.0-10.0) 03/10/19 05:40 Eosinophils % 1.1 % (0.0-5.0) 03/10/19 05:40 Basophils % 0.7 % (0.0-2.0) 03/10/19 05:40 Neutrophils (Manual) 89 % (40-80) H 03/09/19 04:15 Lymphocytes 7 % (20-50) L 03/09/19 04:15 Monocytes 4 % (2-10) 03/09/19 04:15 Eosinophils 0 % (0-5) 03/09/19 04:15 Basophils 0 % (0-3) 03/09/19 04:15 Platelet Estimate ADEQUATE (NORMAL) 03/09/19 04:15 Smear Path Review Not Reportable 03/08/19 04:10 PT 9.7 SECONDS (9.5-11.5) 03/07/19 18:10 INR 0.93 (0.5-1.4) 03/07/19 18:10 PTT (Actin FS) 28.8 SECONDS (26.0-38.0) 03/07/19 18:10 Sodium 134 mEq/L (136-145) L 03/10/19 05:40 Potassium 4.0 mEq/L (3.5-5.1) 03/10/19 05:40 Chloride 98 mEq/L (98-107) 03/10/19 05:40 Carbon Dioxide 19.5 mEq/L (21.0-31.0) L 03/10/19 05:40 Anion Gap 20.5 (7.0-16.0) H 03/10/19 05:40 BUN 57 mg/dL (7-25) H 03/10/19 05:40 Creatinine 11.8 mg/dL (0.7-1.3) H* 03/10/19 05:40 Est GFR ( Amer) 6.5 ml/min (>90) 03/10/19 05:40 Est GFR (Non-Af Amer) 5.4 ml/min 03/10/19 05:40 BUN/Creatinine Ratio 4.8 03/10/19 05:40 Glucose 118 mg/dL (70-105) H 03/10/19 05:40 POC Glucose 135 MG/DL (70 - 105) H 03/09/19 21:12 Whole Bld Lactic Acid 1.36 mmol/L (0.60-1.99) 03/07/19 18:10 Calcium 8.4 mg/dL (8.6-10.3) L 03/10/19 05:40 Magnesium 2.4 mg/dL (1.9-2.7) 03/10/19 05:40 Total Bilirubin 0.4 mg/dL (0.3-1.0) 03/10/19 05:40 AST 7 U/L (13-39) L 03/10/19 05:40 ALT 4 U/L (7-52) L 03/10/19 05:40 Alkaline Phosphatase 99 U/L (34-104) 03/10/19 05:40 B-Natriuretic Peptide 873.0 pg/mL (5.0-100.0) H 03/10/19 05:40 Total Protein 6.6 gm/dL (6.0-8.3) 03/10/19 05:40 Albumin 3.4 gm/dL (4.2-5.5) L 03/10/19 05:40 Globulin 3.2 gm/dL 03/10/19 05:40 Albumin/Globulin Ratio 1.1 (1.0-1.8) 03/10/19 05:40 Amylase 28 U/L (29-103) L 03/07/19 18:10 Lipase 16 U/L (11-82) 03/07/19 18:10 Random Vancomycin 24.4 ug/mL (5.0-40.0) 03/10/19 05:40 - Physical Exam Vitals and I&O: Vital Signs Temp 97.9 F 03/10/19 12:00 Pulse 74 03/10/19 12:00 Resp 19 03/10/19 12:00 BP 142/82 03/10/19 12:00 Pulse Ox 96 03/10/19 12:00 Intake & Output 03/09/19 03/10/19 03/10/19 18:59 06:59 18:59 Intake Total 1909.667 610 Balance 1909.667 610 Weight (lbs) 112.491 kg 112.491 kg Intake: Intake, IV Amount 984.667 250 D5-0.9%Ns 1,000 ml @ 80 734.667 mls/hr IV .[id number] [facility] Rx #:[id number] Erythromycin Lact 250 mg 100 200 In Sodium Chloride 0.9% 100 ml @ 100 mls/hr IV Q8H [facility] Rx#:[id number] Piperacillin Sodium/ 50 50 Tazobact 2.25 gm In Sodium Chloride 0.9% 50 ml @ 100 mls/hr IV Q8HR [facility] Rx#:[id number] metroNIDAZOLE 500mg/NS 100 100mL 500 mg In 100 ml @ 100 mls/hr IV Q12HR@0600, 1800 [facility] Rx#:[id number] Oral 925 360 Other: # Voids 0 # Bowel Movements 0 1 Weight Source Bedscale Bedscale Active Medications: Current Medications Acetaminophen (Tylenol) 650 mg PO Q4H PRN PRN Reason: Mild Pain (1-3) or Fever >101 Stop: 05/06/19 20:59 Last Admin: 03/09/19 21:05 Dose: 650 mg Al Hydrox/Mg Hydrox/Simethicone (Maalox) 30 ml PO Q6H PRN PRN Reason: Dyspepsia Stop: 05/06/19 20:59 Dextrose (D50w) 50 ml IVP PRN PRN PRN Reason: Blood Glucose less than 70 Stop: 05/06/19 21:08 Dextrose (Glutose 40%) 18.75 gm PO PRN PRN PRN Reason: Blood Glucose less than 70 Stop: 05/06/19 21:08 Diphenhydramine HCl (Benadryl 50 Mg/Ml) 50 mg IVP Q8HR [facility] Stop: 05/08/19 12:59 Last Admin: 03/10/19 05:43 Dose: 50 mg Glucagon (Glucagen) 1 mg IM PRN PRN PRN Reason: Blood Glucose less than 70 Stop: 05/06/19 21:08 Heparin Sodium (Porcine) (Heparin) 5,000 units SUBQ Q12HR [facility] Stop: 05/06/19 20:59 Last Admin: 03/10/19 09:41 Dose: 5,000 units Heparin Sodium (Porcine) (Heparin Sodium) 0 units HD [facility] [place] Stop: 03/11/19 00:00 Last Admin: 03/10/19 00:13 Dose: Not Given Heparin Sodium (Porcine) (Heparin) 5,000 units HD [facility] [place] Stop: 03/11/19 00:00 Last Admin: 03/10/19 09:45 Dose: Not Given Hydromorphone HCl (Dilaudid) 1 mg IVP Q4HR PRN PRN Reason: Pain (Severe) Stop: 05/06/19 21:08 Last Admin: 03/10/19 10:37 Dose: 1 mg Metronidazole (Flagyl) 500 mg in 100 mls @ 100 mls/hr IV Q12HR@0600,1800 [facility]; Protocol Stop: 05/07/19 17:59 Last Admin: 03/10/19 05:45 Dose: 100 mls/hr Piperacillin Sod/Tazobactam (Sod 2.25 gm/ Sodium Chloride) 50 mls @ 100 mls/hr IV Q8HR [facility] Stop: 05/07/19 12:59 Last Admin: 03/10/19 05:43 Dose: 100 mls/hr Erythromycin Lactobionate 250 (mg/ Sodium Chloride) 100 mls @ 100 mls/hr IV Q8H [facility] Stop: 05/08/19 07:59 Last Admin: 03/10/19 09:26 Dose: 100 mls/hr Dextrose/Sodium Chloride (D5-0.9%Ns) 1,000 mls @ 40 mls/hr IV .Q24H [facility] Stop: 05/08/19 12:59 Insulin Human Lispro (Humalog Insulin Sliding Scale) 0 units SUBQ ACHS [facility]; Protocol Stop: 05/07/19 07:29 Last Admin: 03/10/19 07:08 Dose: Not Given Metoprolol Tartrate (Lopressor) 50 mg PO BID [facility] Stop: 05/07/19 08:59 Last Admin: 03/10/19 09:43 Dose: 50 mg Miscellaneous (Clinical Monitoring) 1 ea [facility] DAILY PRN PRN Reason: RENAL DOSING Stop: 05/07/19 08:08 Miscellaneous (Vancomycin Iv Per Pharmacy) 1 ea PRN PRN PRN Reason: PROTOCOL Stop: 05/08/19 18:53 Ondansetron HCl (Zofran) 4 mg IV Q8H PRN PRN Reason: Nausea / Vomiting Stop: 05/08/19 07:36 Sodium Bicarbonate (Sodium Bicarbonate) 650 mg PO BID [facility]; Protocol Stop: 05/07/19 08:59 Last Admin: 03/10/19 09:41 Dose: 650 mg Valsartan (Diovan) 80 mg PO DAILY [facility] Stop: 05/07/19 12:50 Last Admin: 03/10/19 09:25 Dose: Not Given Vitamin B Complex/Vit C/Folic Acid (Vitamin B Complex W/Vitamin C) 1 tab PO DAILY [facility] Stop: 05/07/19 08:59 Last Admin: 03/10/19 09:41 Dose: 1 tab Vitamin D (Vitamin D) 400 iu PO DAILY [facility] Stop: 05/07/19 08:59 Last Admin: 03/10/19 09:48 Dose: 400 iu Zolpidem Tartrate (Ambien) 10 mg PO HS PRN PRN Reason: Insomnia Stop: 05/06/19 20:59 Last Admin: 03/09/19 23:44 Dose: 10 mg General: alert HEENT: NC/AT, PERRLA Neck: Supple, No JVD, No LAD Lungs: rales Cardiovascular: RRR, Normal S1, Normal S2, without murmur Abdomen: soft, globular, positive bowel sound Extremities: excoriation Neurological: no change - Procedures Procedures: Procedures Procedure Code Date PERFORMANCE OF URINARY FILTRATION, <6 HRS/DAY [id number] 11/04/18 Internal Medicine Assmt/Plan - Assessment Assessment: ASSESSMENT AND PLAN: Abdominal pain of unclear etiology, leukocytosis, sepsis, diabetes, hypertension, end-stage renal disease, and anemia. obesity ?gastroparesis left nasal cellulitis - Plan Plan: PLAN: We will empirically start the patient on osyn as well as Flagyl. We will provide the patient with adequate pain control, ADA diet, and insulin sliding scale. We will continue to monitor the patient closely. gi and nephro consulted mother at bedside \will order ct sinus Nutritional Asmnt/Malnutr-PDOC - Dietary Evaluation Malnutrition Findings (Please click <Entered> for more info): Nutritional Asmnt/Malnutrition Start: 03/08/19 14: 51 Text: Status: Complete Freq: Protocol: Document 03/08/19 14:51 BILLIE (Rec: 03/08/19 14:56 BILLIE [email or web address]) Nutritional Asmnt/Malnutrition Patient General Information Nutritional Screening Low Risk Diagnosis Abdominal pain, Sepsis Pertinent Medical Hx/Surgical Hx HTN, DM, ESRD (on hemodialysis ) Subjective Information Pt is a 28-year-old male admitted from home on 03/07 c/o upper abdominal pain with intermittent N/V x2 days. Pt has ESRD and is on hemodialysis. Per nurse note ( 03/08), Pt felt nauseas this morning and was given Zofran, no emesis was noted. Spoke with Pt at bedside with family , Pt was having dialysis at this time. Stated he still felt nauseas and just wanted some fruit. Stated he only ate some peaches at breakfast and did not eat any lunch. I brought Pt a fruit cup and Nepro supplement shake. Pt stated he understood his Renal diet and did not need any additional education or information. Will continue to monitor PO intake and provide Nepro shakes with meals. HT: 510 WT: 249 LB (113.18 kg) ABW: 187 LB (84.89kg) BMI: 35.76 (Obese II) GI: nausea, abdominal pain, large, round BM: Not Noted I/O: 50/Not Noted Skin: warm, dry, elastic Wound: nose skin tear with scab Flako: 18 Diet Order: Renal, NCS Estimated Energy Needs: (HD, ABW) 2970 kcals (35 kcals/kg) 102-119 Pro (1.2-1.4g/kg) Fluids: per MD order Current Diet Order/ Nutrition Support Renal, NCS Pertinent Medications Maalox, D50w (PRN), Glutose 40 % (PRN), D5-0.9%ns, Glucagen ( PRN), INS-SS, sodium bicarbonate, Vitamin B Complex w/ Vitamin C, Vitamin D Pertinent Labs 03/08: Hgb/Hct 10.3/30.8, Na 129, BUN/Cr 71/13.2, Glucose 172, Ca 8.4, AST 6, ALT 5, Alk Phos 117, BNP 332, Alb 3.6 POC Glucose (Last 24 hours): 169, 156 03/07: Hgb/Hct 11.3/33.9, Na 127, BUN/Cr 68/12.9, Glucose 147, AST 9, ALT 6, Alk Phos 136, Amylase 28 Nutritional Hx/Data Height 1.78 m Height (Calculated Centimeters) 177.8 Current Weight (lbs) 112.945 kg Weight (Calculated Kilograms) 112.9 Weight (Calculated Grams) 416601.5 [place] Body Weight 166lb (75.45kg) % [place] Body Weight 150 Body Mass Index (BMI) 35.7 Weight Status Obese GI Symptoms GI Symptoms Nausea Last BM Not Noted Skin Integrity/Comment: Warm, dry, elastic Wound: nose skin tear with scab Flako: 18 Current %PO Negligible < 25% Estimated Nutritional Goals BEE in Kcals: Adj wt of IBW Calories/Kcals/Kg 35 Kcals Calculated 2970 Protein: Adj wt of IBW Protein g/k.2-1.4 Protein Calculated 102-119 Fluid: ml per MD order Nutritional Problem 3. Problem Problem Inadequate energy and Pro intake Etiology r/t poor appetite/nausea Signs/Symptoms: aeb Pt self-report 2. Problem Problem Higher calorie and protein needs Etiology r/t Pt Hx ESRD on HD Signs/Symptoms: aeb diet order Renal 80gm Pro 1. Problem Problem Altered nutrition related labs Etiology r/t Hx ESRD and DM Signs/Symptoms: aeb lab results (03/08) Na 129, BUN/Cr 71/13.2, Glucose 172, Ca 8.4, AST 6, ALT 5, Alk Phos 117, Alb 3.6 Malnutrition Related to Morbid Obesity Malnutrition related to morbid obesity No Intervention/Recommendation Comments 1. Continue with Renal, NCS diet as ordered. 2. Continue antihyperglycemic medications for glucose control per MD order. 3. Add Nepro nutritional shake to meals BID until PO intake increases to meet nutritional needs (completed). Expected Outcomes/Goals Expected Outcomes/Goals 1. PO intake to meet 75% of nutritional needs. 2. Monitor PO intake, wt, skin integrity, and nutrition related labs to trend WNL. 3. F/U as high risk in 2-3 days, 03/10-03/11
[2019-03-10] MEDS: D5-0.9%NS 1,000 ML IV SCH (13:30)
--- NOTE | 2019-03-10 17:19 | Infectious Disease Prog Note ---
Infectious Disease Subjective - Review of Systems Service Date: 03/10/19 Subjective: cc abd pain diverticulitis/nasal cellulitis hpi- wb c decresed cx note ros no fevrer o,e Vital Signs - 24 hr 03/09/19 03/09/19 03/09/19 17:19 19:10 20:00 Temp 98.2 F HR 91 83 80 RR 20 19 BP 161/113 152/90 O2 Sat % 100 100 03/09/19 03/10/19 03/10/19 23:42 00:00 00:42 Temp 98.3 F HR 75 72 82 RR 18 BP 155/95 133/89 O2 Sat % 100 03/10/19 03/10/19 03/10/19 04:00 08:00 08:44 Temp 97.3 F 98.2 F HR 71 72 72 RR 20 18 20 BP 133/89 165/91 O2 Sat % 100 98 98 03/10/19 03/10/19 03/10/19 09:25 09:43 12:00 Temp 97.9 F HR 72 72 74 RR 19 BP 165/91 165/91 142/82 O2 Sat % 96 03/10/19 03/10/19 16:05 16:07 Temp HR 78 78 RR BP 194/115 194/115 O2 Sat % mild pale no icterus blind s1s2 chest clear abs epigastric tender ext pulse Laboratory Results - last 24 hr 03/09/19 03/09/19 03/10/19 17:39 21:12 05:40 WBC 12.2 H RBC 3.40 L Hgb 10.3 L Hct 31.5 L MCV 92.7 MCH 30.3 H MCHC Differential 32.7 RDW 15.7 Plt Count 299 MPV 7.9 Neutrophils % 75.3 Lymphocytes % 16.0 L Monocytes % 6.9 Eosinophils % 1.1 Basophils % 0.7 Sodium Potassium Chloride Carbon Dioxide Anion Gap BUN Creatinine Est GFR ( Amer) Est GFR (Non-Af Amer) BUN/Creatinine Ratio Glucose POC Glucose 115 H 135 H Calcium Magnesium Total Bilirubin AST ALT Alkaline Phosphatase B-Natriuretic Peptide Total Protein Albumin Globulin Albumin/Globulin Ratio Random Vancomycin 03/10/19 03/10/19 03/10/19 05:40 05:40 05:40 WBC RBC Hgb Hct MCV MCH MCHC Differential RDW Plt Count MPV Neutrophils % Lymphocytes % Monocytes % Eosinophils % Basophils % Sodium 134 L Potassium 4.0 Chloride 98 Carbon Dioxide 19.5 L Anion Gap 20.5 H BUN 57 H Creatinine 11.8 H* Est GFR ( Amer) 6.5 Est GFR (Non-Af Amer) 5.4 BUN/Creatinine Ratio 4.8 Glucose 118 H POC Glucose Calcium 8.4 L Magnesium 2.4 Total Bilirubin 0.4 AST 7 L ALT 4 L Alkaline Phosphatase 99 B-Natriuretic Peptide 873.0 H Total Protein 6.6 Albumin 3.4 L Globulin 3.2 Albumin/Globulin Ratio 1.1 Random Vancomycin 24.4 Microbiology 03/07/19 18:40 Blood - Final 03/08/19 13:15 Nares - Final NO MRSA ISOLATED Diagnoses SEPSIS, UNSPECIFIED ORGANISM (03/07/19) ANEMIA, UNSPECIFIED (03/07/19) ELEVATED WHITE BLOOD CELL COUNT, UNSPECIFIED (03/07/19) ESSENTIAL (PRIMARY) HYPERTENSION (03/07/19) END STAGE RENAL DISEASE (03/07/19) UNSPECIFIED ABDOMINAL PAIN (03/07/19) WEAKNESS (03/07/19) DEPENDENCE ON RENAL DIALYSIS (03/07/19) Current Medications Acetaminophen (Tylenol) 650 mg PO Q4H PRN PRN Reason: Mild Pain (1-3) or Fever >101 Stop: 05/06/19 20:59 Last Admin: 03/09/19 21:05 Dose: 650 mg Al Hydrox/Mg Hydrox/Simethicone (Maalox) 30 ml PO Q6H PRN PRN Reason: Dyspepsia Stop: 05/06/19 20:59 Dextrose (D50w) 50 ml IVP PRN PRN PRN Reason: Blood Glucose less than 70 Stop: 05/06/19 21:08 Dextrose (Glutose 40%) 18.75 gm PO PRN PRN PRN Reason: Blood Glucose less than 70 Stop: 05/06/19 21:08 Diphenhydramine HCl (Benadryl 50 Mg/Ml) 50 mg IVP Q8HR MIR[facility]DA Stop: 05/08/19 12:59 Last Admin: 03/10/19 13:25 Dose: 50 mg Glucagon (Glucagen) 1 mg IM PRN PRN PRN Reason: Blood Glucose less than 70 Stop: 05/06/19 21:08 Heparin Sodium (Porcine) (Heparin) 5,000 units SUBQ Q12HR [facility] Stop: 05/06/19 20:59 Last Admin: 03/10/19 09:41 Dose: 5,000 units Heparin Sodium (Porcine) (Heparin Sodium) 0 units HD UD [facility] Stop: 03/11/19 00:00 Last Admin: 03/10/19 00:13 Dose: Not Given Heparin Sodium (Porcine) (Heparin) 5,000 units HD [facility] [place] Stop: 03/11/19 00:00 Last Admin: 03/10/19 09:45 Dose: Not Given Hydromorphone HCl (Dilaudid) 1 mg IVP Q4HR PRN PRN Reason: Pain (Severe) Stop: 05/06/19 21:08 Last Admin: 03/10/19 14:36 Dose: 1 mg Metronidazole (Flagyl) 500 mg in 100 mls @ 100 mls/hr IV Q12HR@0600,1800 [facility]; Protocol Stop: 05/07/19 17:59 Last Admin: 03/10/19 05:45 Dose: 100 mls/hr Piperacillin Sod/Tazobactam (Sod 2.25 gm/ Sodium Chloride) 50 mls @ 100 mls/hr IV Q8HR [facility] [place] Stop: 05/07/19 12:59 Last Admin: 03/10/19 14:59 Dose: 100 mls/hr Erythromycin Lactobionate 250 (mg/ Sodium Chloride) 100 mls @ 100 mls/hr IV Q8H [facility] [place] Stop: 05/08/19 07:59 Last Admin: 03/10/19 16:22 Dose: 100 mls/hr Dextrose/Sodium Chloride (D5-0.9%Ns) 1,000 mls @ 40 mls/hr IV .Q24H [facility] [place] Stop: 05/08/19 12:59 Last Admin: 03/10/19 13:30 Dose: 40 mls/hr Insulin Human Lispro (Humalog Insulin Sliding Scale) 0 units SUBQ ACHS [facility] [place]; Protocol Stop: 05/07/19 07:29 Last Admin: 03/10/19 12:00 Dose: Not Given Metoprolol Tartrate (Lopressor) 50 mg PO BID [facility] [place] Stop: 05/07/19 08:59 Last Admin: 03/10/19 16:05 Dose: 50 mg Miscellaneous (Clinical Monitoring) 1 ea MC DAILY PRN PRN Reason: RENAL DOSING Stop: 05/07/19 08:08 Miscellaneous (Vancomycin Iv Per Pharmacy) 1 ea MC PRN PRN PRN Reason: PROTOCOL Stop: 05/08/19 18:53 Ondansetron HCl (Zofran) 4 mg IV Q8H PRN PRN Reason: Nausea / Vomiting Stop: 05/08/19 07:36 Sodium Bicarbonate (Sodium Bicarbonate) 650 mg PO BID [facility] [place]; Protocol Stop: 05/07/19 08:59 Last Admin: 03/10/19 16:06 Dose: 650 mg Valsartan (Diovan) 80 mg PO DAILY [facility] [place] Stop: 05/07/19 12:50 Last Admin: 03/10/19 16:07 Dose: 80 mg Vitamin B Complex/Vit C/Folic Acid (Vitamin B Complex W/Vitamin C) 1 tab PO DAILY [facility] [place] Stop: 05/07/19 08:59 Last Admin: 03/10/19 09:41 Dose: 1 tab Vitamin D (Vitamin D) 400 iu PO DAILY [facility] [place] Stop: 05/07/19 08:59 Last Admin: 03/10/19 09:48 Dose: 400 iu Zolpidem Tartrate (Ambien) 10 mg PO HS PRN PRN Reason: Insomnia Stop: 05/06/19 20:59 Last Admin: 03/09/19 23:44 Dose: 10 mg Infectious Disease Objective - Results Result Diagrams: 03/10/19 05:40 03/10/19 05:40 Recent Labs: Laboratory Last Values WBC 12.2 Th/cmm (4.8-10.8) H 03/10/19 05:40 RBC 3.40 Mil/cmm (4.30-5.70) L 03/10/19 05:40 Hgb 10.3 gm/dL (12-16) L 03/10/19 05:40 Hct 31.5 % (41.0-60) L 03/10/19 05:40 MCV 92.7 fl (80-99) 03/10/19 05:40 MCH 30.3 pg (26.0-30.0) H 03/10/19 05:40 MCHC Differential 32.7 pg (28.0-36.0) 03/10/19 05:40 RDW 15.7 % (11.5-20.0) 03/10/19 05:40 Plt Count 299 Th/cmm (150-400) 03/10/19 05:40 MPV 7.9 fl 03/10/19 05:40 Add Manual Diff YES 03/08/19 04:10 Neutrophils % 75.3 % (40.0-80.0) 03/10/19 05:40 Band Neutrophils % 0 % (0-10) 03/09/19 04:15 Lymphocytes % 16.0 % (20.0-50.0) L 03/10/19 05:40 Monocytes % 6.9 % (2.0-10.0) 03/10/19 05:40 Eosinophils % 1.1 % (0.0-5.0) 03/10/19 05:40 Basophils % 0.7 % (0.0-2.0) 03/10/19 05:40 Neutrophils (Manual) 89 % (40-80) H 03/09/19 04:15 Lymphocytes 7 % (20-50) L 03/09/19 04:15 Monocytes 4 % (2-10) 03/09/19 04:15 Eosinophils 0 % (0-5) 03/09/19 04:15 Basophils 0 % (0-3) 03/09/19 04:15 Platelet Estimate ADEQUATE (NORMAL) 03/09/19 04:15 Smear Path Review Not Reportable 03/08/19 04:10 PT 9.7 SECONDS (9.5-11.5) 03/07/19 18:10 INR 0.93 (0.5-1.4) 03/07/19 18:10 PTT (Actin FS) 28.8 SECONDS (26.0-38.0) 03/07/19 18:10 Sodium 134 mEq/L (136-145) L 03/10/19 05:40 Potassium 4.0 mEq/L (3.5-5.1) 03/10/19 05:40 Chloride 98 mEq/L (98-107) 03/10/19 05:40 Carbon Dioxide 19.5 mEq/L (21.0-31.0) L 03/10/19 05:40 Anion Gap 20.5 (7.0-16.0) H 03/10/19 05:40 BUN 57 mg/dL (7-25) H 03/10/19 05:40 Creatinine 11.8 mg/dL (0.7-1.3) H* 03/10/19 05:40 Est GFR ( Amer) 6.5 ml/min (>90) 03/10/19 05:40 Est GFR (Non-Af Amer) 5.4 ml/min 03/10/19 05:40 BUN/Creatinine Ratio 4.8 03/10/19 05:40 Glucose 118 mg/dL (70-105) H 03/10/19 05:40 POC Glucose 135 MG/DL (70 - 105) H 03/09/19 21:12 Whole Bld Lactic Acid 1.36 mmol/L (0.60-1.99) 03/07/19 18:10 Calcium 8.4 mg/dL (8.6-10.3) L 03/10/19 05:40 Magnesium 2.4 mg/dL (1.9-2.7) 03/10/19 05:40 Total Bilirubin 0.4 mg/dL (0.3-1.0) 03/10/19 05:40 AST 7 U/L (13-39) L 03/10/19 05:40 ALT 4 U/L (7-52) L 03/10/19 05:40 Alkaline Phosphatase 99 U/L (34-104) 03/10/19 05:40 B-Natriuretic Peptide 873.0 pg/mL (5.0-100.0) H 03/10/19 05:40 Total Protein 6.6 gm/dL (6.0-8.3) 03/10/19 05:40 Albumin 3.4 gm/dL (4.2-5.5) L 03/10/19 05:40 Globulin 3.2 gm/dL 03/10/19 05:40 Albumin/Globulin Ratio 1.1 (1.0-1.8) 03/10/19 05:40 Amylase 28 U/L (29-103) L 03/07/19 18:10 Lipase 16 U/L (11-82) 03/07/19 18:10 Random Vancomycin 24.4 ug/mL (5.0-40.0) 03/10/19 05:40 - Physical Exam Vitals and I&O: Vital Signs Temp 97.9 F 03/10/19 12:00 Pulse 78 03/10/19 16:07 Resp 19 03/10/19 12:00 BP 194/115 03/10/19 16:07 Pulse Ox 96 03/10/19 12:00 Intake & Output 03/09/19 03/10/19 03/10/19 18:59 06:59 18:59 Intake Total 1909.667 660 100 Balance 1909.667 660 100 Weight (lbs) 112.491 kg 112.491 kg 112.491 kg Intake: Intake, IV Amount 984.667 300 100 D5-0.9%Ns 1,000 ml @ 80 734.667 mls/hr IV .[id number] [facility] Rx #:[id number] Erythromycin Lact 250 mg 100 200 100 In Sodium Chloride 0.9% 100 ml @ 100 mls/hr IV Q8H [facility] Rx#:[id number] Piperacillin Sodium/ 50 100 Tazobact 2.25 gm In Sodium Chloride 0.9% 50 ml @ 100 mls/hr IV Q8HR [facility] Rx#:[id number] metroNIDAZOLE 500mg/NS 100 100mL 500 mg In 100 ml @ 100 mls/hr IV Q12HR@0600, 1800 [facility] Rx#:[id number] Oral 925 360 Other: # Voids 0 # Bowel Movements 0 1 Weight Source Bedscale Bedscale Bedscale Active Medications: Current Medications Acetaminophen (Tylenol) 650 mg PO Q4H PRN PRN Reason: Mild Pain (1-3) or Fever >101 Stop: 05/06/19 20:59 Last Admin: 03/09/19 21:05 Dose: 650 mg Al Hydrox/Mg Hydrox/Simethicone (Maalox) 30 ml PO Q6H PRN PRN Reason: Dyspepsia Stop: 05/06/19 20:59 Dextrose (D50w) 50 ml IVP PRN PRN PRN Reason: Blood Glucose less than 70 Stop: 05/06/19 21:08 Dextrose (Glutose 40%) 18.75 gm PO PRN PRN PRN Reason: Blood Glucose less than 70 Stop: 05/06/19 21:08 Diphenhydramine HCl (Benadryl 50 Mg/Ml) 50 mg IVP Q8HR [facility] Stop: 05/08/19 12:59 Last Admin: 03/10/19 13:25 Dose: 50 mg Glucagon (Glucagen) 1 mg IM PRN PRN PRN Reason: Blood Glucose less than 70 Stop: 05/06/19 21:08 Heparin Sodium (Porcine) (Heparin) 5,000 units SUBQ Q12HR [facility] Stop: 05/06/19 20:59 Last Admin: 03/10/19 09:41 Dose: 5,000 units Heparin Sodium (Porcine) (Heparin Sodium) 0 units HD UD [facility] Stop: 03/11/19 00:00 Last Admin: 03/10/19 00:13 Dose: Not Given Heparin Sodium (Porcine) (Heparin) 5,000 units HD [facility] [place] Stop: 03/11/19 00:00 Last Admin: 03/10/19 09:45 Dose: Not Given Hydromorphone HCl (Dilaudid) 1 mg IVP Q4HR PRN PRN Reason: Pain (Severe) Stop: 05/06/19 21:08 Last Admin: 03/10/19 14:36 Dose: 1 mg Metronidazole (Flagyl) 500 mg in 100 mls @ 100 mls/hr IV Q12HR@0600,1800 [facility] [place]; Protocol Stop: 05/07/19 17:59 Last Admin: 03/10/19 05:45 Dose: 100 mls/hr Piperacillin Sod/Tazobactam (Sod 2.25 gm/ Sodium Chloride) 50 mls @ 100 mls/hr IV Q8HR [facility] [place] Stop: 05/07/19 12:59 Last Admin: 03/10/19 14:59 Dose: 100 mls/hr Erythromycin Lactobionate 250 (mg/ Sodium Chloride) 100 mls @ 100 mls/hr IV Q8H [facility] [place] Stop: 05/08/19 07:59 Last Admin: 03/10/19 16:22 Dose: 100 mls/hr Dextrose/Sodium Chloride (D5-0.9%Ns) 1,000 mls @ 40 mls/hr IV .Q24H [facility] [place] Stop: 05/08/19 12:59 Last Admin: 03/10/19 13:30 Dose: 40 mls/hr Insulin Human Lispro (Humalog Insulin Sliding Scale) 0 units SUBQ ACHS [facility] [place]; Protocol Stop: 05/07/19 07:29 Last Admin: 03/10/19 12:00 Dose: Not Given Metoprolol Tartrate (Lopressor) 50 mg PO BID [facility] [place] Stop: 05/07/19 08:59 Last Admin: 03/10/19 16:05 Dose: 50 mg Miscellaneous (Clinical Monitoring) 1 ea MC DAILY PRN PRN Reason: RENAL DOSING Stop: 05/07/19 08:08 Miscellaneous (Vancomycin Iv Per Pharmacy) 1 ea MC PRN PRN PRN Reason: PROTOCOL Stop: 05/08/19 18:53 Ondansetron HCl (Zofran) 4 mg IV Q8H PRN PRN Reason: Nausea / Vomiting Stop: 05/08/19 07:36 Sodium Bicarbonate (Sodium Bicarbonate) 650 mg PO BID [facility] [place]; Protocol Stop: 05/07/19 08:59 Last Admin: 03/10/19 16:06 Dose: 650 mg Valsartan (Diovan) 80 mg PO DAILY [facility] [place] Stop: 05/07/19 12:50 Last Admin: 03/10/19 16:07 Dose: 80 mg Vitamin B Complex/Vit C/Folic Acid (Vitamin B Complex W/Vitamin C) 1 tab PO DAILY [facility] [place] Stop: 05/07/19 08:59 Last Admin: 03/10/19 09:41 Dose: 1 tab Vitamin D (Vitamin D) 400 iu PO DAILY [facility] [place] Stop: 05/07/19 08:59 Last Admin: 03/10/19 09:48 Dose: 400 iu Zolpidem Tartrate (Ambien) 10 mg PO HS PRN PRN Reason: Insomnia Stop: 05/06/19 20:59 Last Admin: 03/09/19 23:44 Dose: 10 mg - Procedures Procedures: Procedures Procedure Code Date PERFORMANCE OF URINARY FILTRATION, <6 HRS/DAY [id number] 11/04/18 Infectious Disease Assmt/Plan - Problem List Patient Problems: All Active Problems NAUSEA, VOMITING, DIARRHEA WITH EPIGASTR (Acute) Nutritional Asmnt/Malnutr-PDOC - Dietary Evaluation Malnutrition Findings (Please click <Entered> for more info): Nutritional Asmnt/Malnutrition Start: 03/08/19 14: 51 Text: Status: Complete Freq: Protocol: Document 03/08/19 14:51 BILLIE (Rec: 03/08/19 14:56 BILLIE [email or web address]) Nutritional Asmnt/Malnutrition Patient General Information Nutritional Screening Low Risk Diagnosis Abdominal pain, Sepsis Pertinent Medical Hx/Surgical Hx HTN, DM, ESRD (on hemodialysis ) Subjective Information Pt is a 28-year-old male admitted from home on 03/07 c/o upper abdominal pain with intermittent N/V x2 days. Pt has ESRD and is on hemodialysis. Per nurse note ( 03/08), Pt felt nauseas this morning and was given Zofran, no emesis was noted. Spoke with Pt at bedside with family , Pt was having dialysis at this time. Stated he still felt nauseas and just wanted some fruit. Stated he only ate some peaches at breakfast and did not eat any lunch. I brought Pt a fruit cup and Nepro supplement shake. Pt stated he understood his Renal diet and did not need any additional education or information. Will continue to monitor PO intake and provide Nepro shakes with meals. HT: 510 WT: 249 LB (113.18 kg) ABW: 187 LB (84.89kg) BMI: 35.76 (Obese II) GI: nausea, abdominal pain, large, round BM: Not Noted I/O: 50/Not Noted Skin: warm, dry, elastic Wound: nose skin tear with scab Flako: 18 Diet Order: Renal, NCS Estimated Energy Needs: (HD, ABW) 2970 kcals (35 kcals/kg) 102-119 Pro (1.2-1.4g/kg) Fluids: per MD order Current Diet Order/ Nutrition Support Renal, NCS Pertinent Medications Maalox, D50w (PRN), Glutose 40 % (PRN), D5-0.9%ns, Glucagen ( PRN), INS-SS, sodium bicarbonate, Vitamin B Complex w/ Vitamin C, Vitamin D Pertinent Labs 03/08: Hgb/Hct 10.3/30.8, Na 129, BUN/Cr 71/13.2, Glucose 172, Ca 8.4, AST 6, ALT 5, Alk Phos 117, BNP 332, Alb 3.6 POC Glucose (Last 24 hours): 169, 156 03/07: Hgb/Hct 11.3/33.9, Na 127, BUN/Cr 68/12.9, Glucose 147, AST 9, ALT 6, Alk Phos 136, Amylase 28 Nutritional Hx/Data Height 1.78 m Height (Calculated Centimeters) 177.8 Current Weight (lbs) 112.945 kg Weight (Calculated Kilograms) 112.9 Weight (Calculated Grams) 132607.5 [place] Body Weight 166lb (75.45kg) % [place] Body Weight 150 Body Mass Index (BMI) 35.7 Weight Status Obese GI Symptoms GI Symptoms Nausea Last BM Not Noted Skin Integrity/Comment: Warm, dry, elastic Wound: nose skin tear with scab Flako: 18 Current %PO Negligible < 25% Estimated Nutritional Goals BEE in Kcals: Adj wt of IBW Calories/Kcals/Kg 35 Kcals Calculated 2970 Protein: Adj wt of IBW Protein g/k.2-1.4 Protein Calculated 102-119 Fluid: ml per MD order Nutritional Problem 3. Problem Problem Inadequate energy and Pro intake Etiology r/t poor appetite/nausea Signs/Symptoms: aeb Pt self-report 2. Problem Problem Higher calorie and protein needs Etiology r/t Pt Hx ESRD on HD Signs/Symptoms: aeb diet order Renal 80gm Pro 1. Problem Problem Altered nutrition related labs Etiology r/t Hx ESRD and DM Signs/Symptoms: aeb lab results (03/08) Na 129, BUN/Cr 71/13.2, Glucose 172, Ca 8.4, AST 6, ALT 5, Alk Phos 117, Alb 3.6 Malnutrition Related to Morbid Obesity Malnutrition related to morbid obesity No Intervention/Recommendation Comments 1. Continue with Renal, NCS diet as ordered. 2. Continue antihyperglycemic medications for glucose control per MD order. 3. Add Nepro nutritional shake to meals BID until PO intake increases to meet nutritional needs (completed). Expected Outcomes/Goals Expected Outcomes/Goals 1. PO intake to meet 75% of nutritional needs. 2. Monitor PO intake, wt, skin integrity, and nutrition related labs to trend WNL. 3. F/U as high risk in 2-3 days, 03/10-03/11
--- NOTE | 2019-03-10 20:21 | General Progress Note ---
Subjective - Review of Systems Service Date: 03/10/19 Subjective: feels better Objective - Results Result Diagrams: 03/10/19 05:40 03/10/19 05:40 Recent Labs: Laboratory Last Values WBC 12.2 Th/cmm (4.8-10.8) H 03/10/19 05:40 RBC 3.40 Mil/cmm (4.30-5.70) L 03/10/19 05:40 Hgb 10.3 gm/dL (12-16) L 03/10/19 05:40 Hct 31.5 % (41.0-60) L 03/10/19 05:40 MCV 92.7 fl (80-99) 03/10/19 05:40 MCH 30.3 pg (26.0-30.0) H 03/10/19 05:40 MCHC Differential 32.7 pg (28.0-36.0) 03/10/19 05:40 RDW 15.7 % (11.5-20.0) 03/10/19 05:40 Plt Count 299 Th/cmm (150-400) 03/10/19 05:40 MPV 7.9 fl 03/10/19 05:40 Add Manual Diff YES 03/08/19 04:10 Neutrophils % 75.3 % (40.0-80.0) 03/10/19 05:40 Band Neutrophils % 0 % (0-10) 03/09/19 04:15 Lymphocytes % 16.0 % (20.0-50.0) L 03/10/19 05:40 Monocytes % 6.9 % (2.0-10.0) 03/10/19 05:40 Eosinophils % 1.1 % (0.0-5.0) 03/10/19 05:40 Basophils % 0.7 % (0.0-2.0) 03/10/19 05:40 Neutrophils (Manual) 89 % (40-80) H 03/09/19 04:15 Lymphocytes 7 % (20-50) L 03/09/19 04:15 Monocytes 4 % (2-10) 03/09/19 04:15 Eosinophils 0 % (0-5) 03/09/19 04:15 Basophils 0 % (0-3) 03/09/19 04:15 Platelet Estimate ADEQUATE (NORMAL) 03/09/19 04:15 Smear Path Review Not Reportable 03/08/19 04:10 PT 9.7 SECONDS (9.5-11.5) 03/07/19 18:10 INR 0.93 (0.5-1.4) 03/07/19 18:10 PTT (Actin FS) 28.8 SECONDS (26.0-38.0) 03/07/19 18:10 Sodium 134 mEq/L (136-145) L 03/10/19 05:40 Potassium 4.0 mEq/L (3.5-5.1) 03/10/19 05:40 Chloride 98 mEq/L (98-107) 03/10/19 05:40 Carbon Dioxide 19.5 mEq/L (21.0-31.0) L 03/10/19 05:40 Anion Gap 20.5 (7.0-16.0) H 03/10/19 05:40 BUN 57 mg/dL (7-25) H 03/10/19 05:40 Creatinine 11.8 mg/dL (0.7-1.3) H* 03/10/19 05:40 Est GFR ( Amer) 6.5 ml/min (>90) 03/10/19 05:40 Est GFR (Non-Af Amer) 5.4 ml/min 03/10/19 05:40 BUN/Creatinine Ratio 4.8 03/10/19 05:40 Glucose 118 mg/dL (70-105) H 03/10/19 05:40 POC Glucose 163 MG/DL (70 - 105) H 03/10/19 18:25 Whole Bld Lactic Acid 1.36 mmol/L (0.60-1.99) 03/07/19 18:10 Calcium 8.4 mg/dL (8.6-10.3) L 03/10/19 05:40 Magnesium 2.4 mg/dL (1.9-2.7) 03/10/19 05:40 Total Bilirubin 0.4 mg/dL (0.3-1.0) 03/10/19 05:40 AST 7 U/L (13-39) L 03/10/19 05:40 ALT 4 U/L (7-52) L 03/10/19 05:40 Alkaline Phosphatase 99 U/L (34-104) 03/10/19 05:40 B-Natriuretic Peptide 873.0 pg/mL (5.0-100.0) H 03/10/19 05:40 Total Protein 6.6 gm/dL (6.0-8.3) 03/10/19 05:40 Albumin 3.4 gm/dL (4.2-5.5) L 03/10/19 05:40 Globulin 3.2 gm/dL 03/10/19 05:40 Albumin/Globulin Ratio 1.1 (1.0-1.8) 03/10/19 05:40 Amylase 28 U/L (29-103) L 03/07/19 18:10 Lipase 16 U/L (11-82) 03/07/19 18:10 Random Vancomycin 24.4 ug/mL (5.0-40.0) 03/10/19 05:40 - Physical Exam Vitals and I&O: Vital Signs Temp 97.9 F 03/10/19 16:00 Pulse 77 03/10/19 19:13 Resp 18 03/10/19 19:13 BP 149/70 03/10/19 18:00 Pulse Ox 100 03/10/19 19:13 Intake & Output 03/10/19 03/10/19 03/11/19 06:59 18:59 06:59 Intake Total 760 600 250 Output Total 2500 Balance 760 -1900 250 Weight (lbs) 112.491 kg 112.491 kg Intake: Intake, IV Amount 400 100 250 Erythromycin Lact 250 mg 200 100 100 In Sodium Chloride 0.9% 100 ml @ 100 mls/hr IV Q8H [facility] Rx#:[id number] Piperacillin Sodium/ 100 50 Tazobact 2.25 gm In Sodium Chloride 0.9% 50 ml @ 100 mls/hr IV Q8HR [facility] Rx#:[id number] metroNIDAZOLE 500mg/NS 100 100 100mL 500 mg In 100 ml @ 100 mls/hr IV Q12HR@0600, 1800 [facility] Rx#:[id number] Oral 360 500 Output: Hemodialysis 2500 Other: # Bowel Movements 1 1 Weight Source Bedscale Bedscale Active Medications: Current Medications Acetaminophen (Tylenol) 650 mg PO Q4H PRN PRN Reason: Mild Pain (1-3) or Fever >101 Stop: 05/06/19 20:59 Last Admin: 03/09/19 21:05 Dose: 650 mg Al Hydrox/Mg Hydrox/Simethicone (Maalox) 30 ml PO Q6H PRN PRN Reason: Dyspepsia Stop: 05/06/19 20:59 Dextrose (D50w) 50 ml IVP PRN PRN PRN Reason: Blood Glucose less than 70 Stop: 05/06/19 21:08 Dextrose (Glutose 40%) 18.75 gm PO PRN PRN PRN Reason: Blood Glucose less than 70 Stop: 05/06/19 21:08 Diphenhydramine HCl (Benadryl 50 Mg/Ml) 50 mg IVP Q8HR [facility] Stop: 05/08/19 12:59 Last Admin: 03/10/19 13:25 Dose: 50 mg Glucagon (Glucagen) 1 mg IM PRN PRN PRN Reason: Blood Glucose less than 70 Stop: 05/06/19 21:08 Heparin Sodium (Porcine) (Heparin) 5,000 units SUBQ Q12HR [facility] Stop: 05/06/19 20:59 Last Admin: 03/10/19 09:41 Dose: 5,000 units Heparin Sodium (Porcine) (Heparin Sodium) 0 units [place] [facility] [place]: 03/11/19 00:00 Last Admin: 03/10/19 00:13 Dose: Not Given Heparin Sodium (Porcine) (Heparin) 5,000 units [place] [facility]: 03/11/19 00:00 Last Admin: 03/10/19 09:45 Dose: Not Given Hydromorphone HCl (Dilaudid) 1 mg IVP Q4HR PRN PRN Reason: Pain (Severe) Stop: 05/06/19 21:08 Last Admin: 03/10/19 18:29 Dose: 1 mg Metronidazole (Flagyl) 500 mg in 100 mls @ 100 mls/hr IV Q12HR@0600,1800 [facility]; Protocol Stop: 05/07/19 17:59 Last Infusion: 03/10/19 19:56 Dose: Infused Piperacillin Sod/Tazobactam (Sod 2.25 gm/ Sodium Chloride) 50 mls @ 100 mls/hr IV Q8HR [facility] Stop: 05/07/19 12:59 Last Infusion: 03/10/19 19:56 Dose: Infused Erythromycin Lactobionate 250 (mg/ Sodium Chloride) 100 mls @ 100 mls/hr IV Q8H [facility] Stop: 05/08/19 07:59 Last Infusion: 03/10/19 19:55 Dose: Infused Dextrose/Sodium Chloride (D5-0.9%Ns) 1,000 mls @ 40 mls/hr IV .Q24H [facility] Stop: 05/08/19 12:59 Last Admin: 03/10/19 13:30 Dose: 40 mls/hr Insulin Human Lispro (Humalog Insulin Sliding Scale) 0 units SUBQ ACHS [facility]; Protocol Stop: 05/07/19 07:29 Last Admin: 03/10/19 17:00 Dose: Not Given Metoprolol Tartrate (Lopressor) 50 mg PO BID [facility] Stop: 05/07/19 08:59 Last Admin: 03/10/19 16:05 Dose: 50 mg Miscellaneous (Clinical Monitoring) 1 ea DAILY PRN PRN Reason: RENAL DOSING Stop: 05/07/19 08:08 Miscellaneous (Vancomycin Iv Per Pharmacy) 1 [facility] PRN PRN PRN Reason: PROTOCOL Stop: 05/08/19 18:53 Ondansetron HCl (Zofran) 4 mg IV Q8H PRN PRN Reason: Nausea / Vomiting Stop: 05/08/19 07:36 Sodium Bicarbonate (Sodium Bicarbonate) 650 mg PO BID [facility]; Protocol Stop: 05/07/19 08:59 Last Admin: 03/10/19 16:06 Dose: 650 mg Valsartan (Diovan) 80 mg PO DAILY [facility] Stop: 05/07/19 12:50 Last Admin: 03/10/19 16:07 Dose: 80 mg Vitamin B Complex/Vit C/Folic Acid (Vitamin B Complex W/Vitamin C) 1 tab PO DAILY [facility] Stop: 05/07/19 08:59 Last Admin: 03/10/19 09:41 Dose: 1 tab Vitamin D (Vitamin D) 400 iu PO DAILY [facility] Stop: 05/07/19 08:59 Last Admin: 03/10/19 09:48 Dose: 400 iu Zolpidem Tartrate (Ambien) 10 mg PO HS PRN PRN Reason: Insomnia Stop: 05/06/19 20:59 Last Admin: 03/09/19 23:44 Dose: 10 mg General: Alert, Oriented x3 HEENT: Atraumatic Neck: Supple Cardiovascular: Regular rate Lungs: Clear to auscultation, Normal air movement Abdomen: Bowel sounds, Soft, no Tender, no Hepatomegaly, no Splenomegaly, no Distended, no Rebound, no Mass Extremities: no Edema Neurological: Normal speech Skin: no Rash Psych/Mental Status: Mental status NL - Procedures Procedures: Procedures Procedure Code Date PERFORMANCE OF URINARY FILTRATION, <6 HRS/DAY [id number] 11/04/18 Assessment/Plan - Problem List Patient Problems: All Active Problems NAUSEA, VOMITING, DIARRHEA WITH EPIGASTR (Acute) - Assessment Assessment: ESRD/DIALYSIS STATUS FACIAL CELLULITIS DIARRHEA ANEMIA W ESRD DM2 W ESRD HTN W ESRD - Plan Plan: HD THURSDAY UNLESS EARLIER INDICATED. PT WAS DIALYZED TODAY. CONT ABX SUPPORTIVE MGMT Nutritional Asmnt/Malnutr-PDOC - Dietary Evaluation Malnutrition Findings (Please click <Entered> for more info): Nutritional Asmnt/Malnutrition Start: 03/08/19 14: 51 Text: Status: Complete Freq: Protocol: Document 03/08/19 14:51 BILLIE (Rec: 03/08/19 14:56 BILLIE [email or web address]) Nutritional Asmnt/Malnutrition Patient General Information Nutritional Screening Low Risk Diagnosis Abdominal pain, Sepsis Pertinent Medical Hx/Surgical Hx HTN, DM, ESRD (on hemodialysis ) Subjective Information Pt is a 28-year-old male admitted from home on 03/07 c/o upper abdominal pain with intermittent N/V x2 days. Pt has ESRD and is on hemodialysis. Per nurse note ( 03/08), Pt felt nauseas this morning and was given Zofran, no emesis was noted. Spoke with Pt at bedside with family , Pt was having dialysis at this time. Stated he still felt nauseas and just wanted some fruit. Stated he only ate some peaches at breakfast and did not eat any lunch. I brought Pt a fruit cup and Nepro supplement shake. Pt stated he understood his Renal diet and did not need any additional education or information. Will continue to monitor PO intake and provide Nepro shakes with meals. HT: 510 WT: 249 LB (113.18 kg) ABW: 187 LB (84.89kg) BMI: 35.76 (Obese II) GI: nausea, abdominal pain, large, round BM: Not Noted I/O: 50/Not Noted Skin: warm, dry, elastic Wound: nose skin tear with scab Flako: 18 Diet Order: Renal, NCS Estimated Energy Needs: (HD, ABW) 2970 kcals (35 kcals/kg) 102-119 Pro (1.2-1.4g/kg) Fluids: per MD order Current Diet Order/ Nutrition Support Renal, NCS Pertinent Medications Maalox, D50w (PRN), Glutose 40 % (PRN), D5-0.9%ns, Glucagen ( PRN), INS-SS, sodium bicarbonate, Vitamin B Complex w/ Vitamin C, Vitamin D Pertinent Labs 03/08: Hgb/Hct 10.3/30.8, Na 129, BUN/Cr 71/13.2, Glucose 172, Ca 8.4, AST 6, ALT 5, Alk Phos 117, BNP 332, Alb 3.6 POC Glucose (Last 24 hours): 169, 156 03/07: Hgb/Hct 11.3/33.9, Na 127, BUN/Cr 68/12.9, Glucose 147, AST 9, ALT 6, Alk Phos 136, Amylase 28 Nutritional Hx/Data Height 1.78 m Height (Calculated Centimeters) 177.8 Current Weight (lbs) 112.945 kg Weight (Calculated Kilograms) 112.9 Weight (Calculated Grams) 184588.5 [place] Body Weight 166lb (75.45kg) % [place] Body Weight 150 Body Mass Index (BMI) 35.7 Weight Status Obese GI Symptoms GI Symptoms Nausea Last BM Not Noted Skin Integrity/Comment: Warm, dry, elastic Wound: nose skin tear with scab Flako: 18 Current %PO Negligible < 25% Estimated Nutritional Goals BEE in Kcals: Adj wt of IBW Calories/Kcals/Kg 35 Kcals Calculated 2970 Protein: Adj wt of IBW Protein g/k.2-1.4 Protein Calculated 102-119 Fluid: ml per MD order Nutritional Problem 3. Problem Problem Inadequate energy and Pro intake Etiology r/t poor appetite/nausea Signs/Symptoms: aeb Pt self-report 2. Problem Problem Higher calorie and protein needs Etiology r/t Pt Hx ESRD on HD Signs/Symptoms: aeb diet order Renal 80gm Pro 1. Problem Problem Altered nutrition related labs Etiology r/t Hx ESRD and DM Signs/Symptoms: aeb lab results (03/08) Na 129, BUN/Cr 71/13.2, Glucose 172, Ca 8.4, AST 6, ALT 5, Alk Phos 117, Alb 3.6 Malnutrition Related to Morbid Obesity Malnutrition related to morbid obesity No Intervention/Recommendation Comments 1. Continue with Renal, NCS diet as ordered. 2. Continue antihyperglycemic medications for glucose control per MD order. 3. Add Nepro nutritional shake to meals BID until PO intake increases to meet nutritional needs (completed). Expected Outcomes/Goals Expected Outcomes/Goals 1. PO intake to meet 75% of nutritional needs. 2. Monitor PO intake, wt, skin integrity, and nutrition related labs to trend WNL. 3. F/U as high risk in 2-3 days, 03/10-03/11
--- NOTE | 2019-03-10 21:28 | Consultation ---
DATE OF CONSULTATION: 03/09/2019 HISTORY OF PRESENT ILLNESS: This is a 28-year-old male who was brought to the Emergency Room with complaint of abdominal pain. The patient had similar pain last year and was admitted at [facility]. At that time, the patient was seen by Dr. Bianchi and was thought to be because of gastroparesis. This time, the patient has similar pain and had developed some wound on the bridge of the nose. The patient had also blood culture positive for coagulase negative staph. The patient started on vancomycin. Infectious consultation was called. PAST MEDICAL HISTORY: Bilateral eye blindness, end-stage renal disease, dialysis, hypertension, type 2 diabetes. PAST SURGICAL HISTORY: Eye surgery as a child. SOCIAL HISTORY: Nonsmoker. ALLERGIES: DIAZEPAM, FENTANYL, HALDOL, TORADOL, MORPHINE, and TRAMADOL. FAMILY HISTORY: Negative. SOCIAL HISTORY: Nonsmoker. REVIEW OF SYSTEMS: A 14-point review of system negative except above. PHYSICAL EXAMINATION: GENERAL: The patient is legally blind. VITAL SIGNS: Temperature 98.2, pulse 80, respirations 19, blood pressure 150/90. HEENT: Mild pallor. No icterus or plaque. NECK: Supple. LUNGS: Breath sounds bilaterally. CARDIOVASCULAR: S1 and S2 audible. ABDOMEN: Soft, bowel sounds present. LYMPHATIC: No cervical lymph nodes. LABORATORY DATA: White count is 12,000, hemoglobin 10 grams, platelets 274. Blood culture, coagulase negative staph. DIAGNOSES: 1. Nasal wound with cellulitis with negative Staphylococcus bacteremia. The patient is started on vancomycin. 2. For abdominal pain with possible gastroparesis versus diverticulitis, the patient is started on Zosyn. GI followup 3. Renal failure, on dialysis. Renal consultation. 4. Diabetes, Accu-Chek. 5. Rest of the care as ordered in CPOE. Thank you, Dr. Kay for this consultation. [facility]# [id number]
[2019-03-11] MEDS: HYDROmorphone 1 mg/mL 1mL Syr IVP PRN ×6 (02:32→22:30)
[2019-03-11 05:38] LABS: % EOSINOPHILS 1.2 % (0.0-5.0); % LYMPHOCYTES 16.3 % (20.0-50.0); % MONOCYTES 4.2 % (2.0-10.0); % NEUTROPHILS 78.3 % (40.0-80.0); EOSINOPHILE ABSOLUTE 0.1 Th/cmm (0.1-0.4); HEMATOCRIT 30.8 % (41.0-60); HEMOGLOBIN 10.3 gm/dL (12-16); LYMPHOCYTE ABSOLUTE 1.7 Th/cmm (1.5-3.0); MEAN CELL VOLUME 92.2 fl (80-99); MEAN CORPUSCULAR HEMOGLOBIN 30.8 pg (26.0-30.0); MEAN CORPUSCULAR HGB CONC 33.4 pg (28.0-36.0); MONOCYTE ABSOLUTE 0.4 Th/cmm (0.3-1.0); NEUTROPHILE ABSOLUTE 8.4 Th/cmm (1.8-8.0); PLATELET COUNT 304 Th/cmm (150-400); RED BLOOD COUNT 3.35 Mil/cmm (4.30-5.70); WHITE BLOOD COUNT 10.6 Th/cmm (4.8-10.8)
[2019-03-11] MEDS: metroNIDAZOLE 500 mg/100 mL Premix Bag IV SCH (05:44)
[2019-03-11 05:50] LABS: CALCIUM SERUM 7.8 mg/dL (8.6-10.3); CARBON DIOXIDE 26.4 mEq/L (21.0-31.0); GFR AFRICAN-AMERICAN 9.2 ml/min (>90); GFR NON AFRICAN-AMERICAN 7.6 ml/min; POTASSIUM SERUM 3.4 mEq/L (3.5-5.1)
[2019-03-11 05:55] LABS: CREATININE - SERUM 8.8 mg/dL (0.7-1.3)
[2019-03-11] MEDS: INSULIN LISPRO SLIDING SCALE 100 UNITS/ML UNIT SUBQ SCH ×4 (06:37→21:08)
--- NOTE | 2019-03-11 08:24 | GI Progress Note ---
Subjective - Review of Systems Service Date: 03/11/19 Subjective: Thinks he feels better as compared to yesterday, still nauseous however. GI OBJECTIVE - Results Result Diagrams: 03/11/19 05:20 03/11/19 05:20 Recent Labs: Laboratory Last Values WBC 10.6 Th/cmm (4.8-10.8) 03/11/19 05:20 RBC 3.35 Mil/cmm (4.30-5.70) L 03/11/19 05:20 Hgb 10.3 gm/dL (12-16) L 03/11/19 05:20 Hct 30.8 % (41.0-60) L 03/11/19 05:20 MCV 92.2 fl (80-99) 03/11/19 05:20 MCH 30.8 pg (26.0-30.0) H 03/11/19 05:20 MCHC Differential 33.4 pg (28.0-36.0) 03/11/19 05:20 RDW 15.0 % (11.5-20.0) 03/11/19 05:20 Plt Count 304 Th/cmm (150-400) 03/11/19 05:20 MPV 7.4 fl 03/11/19 05:20 Add Manual Diff YES 03/08/19 04:10 Neutrophils % 78.3 % (40.0-80.0) 03/11/19 05:20 Band Neutrophils % 0 % (0-10) 03/09/19 04:15 Lymphocytes % 16.3 % (20.0-50.0) L 03/11/19 05:20 Monocytes % 4.2 % (2.0-10.0) 03/11/19 05:20 Eosinophils % 1.2 % (0.0-5.0) 03/11/19 05:20 Basophils % 0.0 % (0.0-2.0) 03/11/19 05:20 Neutrophils (Manual) 89 % (40-80) H 03/09/19 04:15 Lymphocytes 7 % (20-50) L 03/09/19 04:15 Monocytes 4 % (2-10) 03/09/19 04:15 Eosinophils 0 % (0-5) 03/09/19 04:15 Basophils 0 % (0-3) 03/09/19 04:15 Platelet Estimate ADEQUATE (NORMAL) 03/09/19 04:15 Smear Path Review Not Reportable 03/08/19 04:10 PT 9.7 SECONDS (9.5-11.5) 03/07/19 18:10 INR 0.93 (0.5-1.4) 03/07/19 18:10 PTT (Actin FS) 28.8 SECONDS (26.0-38.0) 03/07/19 18:10 Sodium 134 mEq/L (136-145) L 03/11/19 05:20 Potassium 3.4 mEq/L (3.5-5.1) L 03/11/19 05:20 Chloride 97 mEq/L (98-107) L 03/11/19 05:20 Carbon Dioxide 26.4 mEq/L (21.0-31.0) 03/11/19 05:20 Anion Gap 14.0 (7.0-16.0) 03/11/19 05:20 BUN 40 mg/dL (7-25) H 03/11/19 05:20 Creatinine 8.8 mg/dL (0.7-1.3) H* 03/11/19 05:20 Est GFR ( Amer) 9.2 ml/min (>90) 03/11/19 05:20 Est GFR (Non-Af Amer) 7.6 ml/min 03/11/19 05:20 BUN/Creatinine Ratio 4.5 03/11/19 05:20 Glucose 140 mg/dL (70-105) H 03/11/19 05:20 POC Glucose 125 MG/DL (70 - 105) H 03/11/19 05:41 Whole Bld Lactic Acid 1.36 mmol/L (0.60-1.99) 03/07/19 18:10 Calcium 7.8 mg/dL (8.6-10.3) L 03/11/19 05:20 Magnesium 2.4 mg/dL (1.9-2.7) 03/10/19 05:40 Total Bilirubin 0.4 mg/dL (0.3-1.0) 03/10/19 05:40 AST 7 U/L (13-39) L 03/10/19 05:40 ALT 4 U/L (7-52) L 03/10/19 05:40 Alkaline Phosphatase 99 U/L (34-104) 03/10/19 05:40 B-Natriuretic Peptide 873.0 pg/mL (5.0-100.0) H 03/10/19 05:40 Total Protein 6.6 gm/dL (6.0-8.3) 03/10/19 05:40 Albumin 3.4 gm/dL (4.2-5.5) L 03/10/19 05:40 Globulin 3.2 gm/dL 03/10/19 05:40 Albumin/Globulin Ratio 1.1 (1.0-1.8) 03/10/19 05:40 Amylase 28 U/L (29-103) L 03/07/19 18:10 Lipase 16 U/L (11-82) 03/07/19 18:10 Random Vancomycin 15.8 ug/mL (5.0-40.0) 03/11/19 05:20 - Physical Exam Vitals and I&O: Vital Signs Temp 97.9 F 03/11/19 04:00 Pulse 80 03/11/19 07:33 Resp 18 03/11/19 07:33 BP 119/74 03/11/19 04:00 Pulse Ox 100 03/11/19 07:33 Intake & Output 03/10/19 03/11/19 03/11/19 18:59 06:59 18:59 Intake Total 600 930 Output Total 2500 0 Balance -1900 930 Weight (lbs) 112.491 kg 116.845 kg Intake: Intake, IV Amount 100 450 Erythromycin Lact 250 mg 100 200 In Sodium Chloride 0.9% 100 ml @ 100 mls/hr IV Q8H [facility] Rx#:[id number] Piperacillin Sodium/ 150 Tazobact 2.25 gm In Sodium Chloride 0.9% 50 ml @ 100 mls/hr IV Q8HR [facility] Rx#:[id number] metroNIDAZOLE 500mg/NS 100 100mL 500 mg In 100 ml @ 100 mls/hr IV Q12HR@0600, 1800 MIRANDA Rx#:[id number] Oral 500 480 Output: Urine 0 Hemodialysis 2500 Other: # Voids 2 # Bowel Movements 1 1 Weight Source Bedscale Bedscale Active Medications: Current Medications Acetaminophen (Tylenol) 650 mg PO Q4H PRN PRN Reason: Mild Pain (1-3) or Fever >101 Stop: 05/06/19 20:59 Last Admin: 03/09/19 21:05 Dose: 650 mg Al Hydrox/Mg Hydrox/Simethicone (Maalox) 30 ml PO Q6H PRN PRN Reason: Dyspepsia Stop: 05/06/19 20:59 Dextrose (D50w) 50 ml IVP PRN PRN PRN Reason: Blood Glucose less than 70 Stop: 05/06/19 21:08 Dextrose (Glutose 40%) 18.75 gm PO PRN PRN PRN Reason: Blood Glucose less than 70 Stop: 05/06/19 21:08 Diphenhydramine HCl (Benadryl 50 Mg/Ml) 50 mg IVP Q8HR [facility] Stop: 05/08/19 12:59 Last Admin: 03/11/19 04:16 Dose: 50 mg Glucagon (Glucagen) 1 mg IM PRN PRN PRN Reason: Blood Glucose less than 70 Stop: 05/06/19 21:08 Heparin Sodium (Porcine) (Heparin) 5,000 units SUBQ Q12HR [facility] Stop: 05/06/19 20:59 Last Admin: 03/10/19 20:48 Dose: Not Given Hydromorphone HCl (Dilaudid) 1 mg IVP Q4HR PRN PRN Reason: Pain (Severe) Stop: 05/06/19 21:08 Last Admin: 03/11/19 06:34 Dose: 1 mg Metronidazole (Flagyl) 500 mg in 100 mls @ 100 mls/hr IV Q12HR@0600,1800 M[facility]; Protocol Stop: 05/07/19 17:59 Last Admin: 03/11/19 05:44 Dose: 100 mls/hr Piperacillin Sod/Tazobactam (Sod 2.25 gm/ Sodium Chloride) 50 mls @ 100 mls/hr IV Q8HR [facility] Stop: 05/07/19 12:59 Last Infusion: 03/11/19 04:50 Dose: Infused Erythromycin Lactobionate 250 (mg/ Sodium Chloride) 100 mls @ 100 mls/hr IV Q8H [facility] Stop: 05/08/19 07:59 Last Infusion: 03/11/19 00:55 Dose: Infused Dextrose/Sodium Chloride (D5-0.9%Ns) 1,000 mls @ 40 mls/hr IV .Q24H [facility] Stop: 05/08/19 12:59 Last Admin: 03/10/19 13:30 Dose: 40 mls/hr Insulin Human Lispro (Humalog Insulin Sliding Scale) 0 units SUBQ ACHS [facility]; Protocol Stop: 05/07/19 07:29 Last Admin: 03/11/19 06:37 Dose: Not Given Metoprolol Tartrate (Lopressor) 50 mg PO BID [facility] Stop: 05/07/19 08:59 Last Admin: 03/10/19 16:05 Dose: 50 mg Miscellaneous (Clinical Monitoring) 1 ea MC DAILY PRN PRN Reason: RENAL DOSING Stop: 05/07/19 08:08 Miscellaneous (Vancomycin Iv Per Pharmacy) 1 ea PRN PRN PRN Reason: PROTOCOL Stop: 05/08/19 18:53 Ondansetron HCl (Zofran) 4 mg IV Q8H PRN PRN Reason: Nausea / Vomiting Stop: 05/08/19 07:36 Sodium Bicarbonate (Sodium Bicarbonate) 650 mg PO BID [facility]; Protocol Stop: 05/07/19 08:59 Last Admin: 03/10/19 16:06 Dose: 650 mg Valsartan (Diovan) 80 mg PO DAILY [facility] Stop: 05/07/19 12:50 Last Admin: 03/10/19 16:07 Dose: 80 mg Vitamin B Complex/Vit C/Folic Acid (Vitamin B Complex W/Vitamin C) 1 tab PO DAILY [facility] Stop: 05/07/19 08:59 Last Admin: 03/10/19 09:41 Dose: 1 tab Vitamin D (Vitamin D) 400 iu PO DAILY [facility] Stop: 05/07/19 08:59 Last Admin: 03/10/19 09:48 Dose: 400 iu Zolpidem Tartrate (Ambien) 10 mg PO HS PRN PRN Reason: Insomnia Stop: 05/06/19 20:59 Last Admin: 03/10/19 23:59 Dose: 10 mg General: Alert, Oriented x3 HEENT: Atraumatic Neck: Supple Cardiovascular: Regular rate Abdomen: Bowel sounds, Soft, Tender, no Hepatomegaly, no Splenomegaly, no Distended, no Rebound, no Mass, no Guarding Extremities: no Clubbing Psych/Mental Status: Mental status NL - Procedures Procedures: Procedures Procedure Code Date PERFORMANCE OF URINARY FILTRATION, <6 HRS/DAY [id number] 11/04/18 Assessment/Plan - Problem List Patient Problems: All Active Problems NAUSEA, VOMITING, DIARRHEA WITH EPIGASTR (Acute) - Assessment Assessment: 28 YO MALE WITH KNOWN GASTROPARESIS HAD EGD THIS YEAR AT [facility] ALSO HAD GASTRIC EMPTYING STUDY AT [place] STABLE HX OF CKD ON HD Pt is well known to our service, and is seen at ALL the surrounding hospitals. His gastroparesis is multifactorial, and due to diabetes, chronic opiate use, and CKD. Unless he SIGNIFICANTLY comes off opiates, I doubt this will get better in any meaningful way. He no longer can take reglan due to extra pyramidal side effects. There is no diverticulitis on his imaging. Plan: - CONT ERYTHROMYCIN 250 MG IV Q8 for a 2 week course - benadryl prn - Try and stop opiates with help of pain mgmt as much as possible. 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 This would be as outpt, but these centers would likely want the pt OFF opiates before these measures - diet as tolerated
[2019-03-11] MEDS: SODIUM CHLORIDE 0.9% IV SCH ×3 (08:41→23:43)
[2019-03-11] MEDS: Vitamin B Complex w/Vitamin C Tab PO SCH (08:41)
[2019-03-11] MEDS: ERYTHROMYCIN LACT IV SCH ×3 (08:41→23:43)
[2019-03-11] MEDS: Heparin Sod 5,000Units/ML 5,000 UNITS/ML VIAL SUBQ SCH ×2 (08:42→21:07)
--- NOTE | 2019-03-11 09:11 | Diagnostic Imaging Report ---
Exam: CT examination of facial bones HISTORY: Abscess Total DLP equals 529 CTDI equals 24.5 Graft 5: Multiple contiguous thin section of the facial bones obtained on the plain with coronal sagittal reconstruction technique without demonstration contrast material therefore the study is limited. The study demonstrates normal appearance of mandibular There is no evidence of fracture dislocation. The paranasal sinuses demonstrate mucosal thickening left marked with sinus. The nasal bones are intact. The orbits are normal. The intraconal content is intact. The upper airways are intact. Calcification of the optic globes noted bilaterally, clinical correlation recommended. There is no evidence of abnormal adenopathy. The study is limited without administration of contrast material. Extensive calcification of the vertebral arteries bilaterally. IMPRESSION: Limited study without administration of contrast material for detection of abscess formation . Mucosal thickening left maxillary sinus. Calcification of the optic globes. Calcification of carotid and vertebral arteries bilaterally.
--- NOTE | 2019-03-11 12:43 | Internal Medicine Prog Note ---
Internal Medicine Subjective - Subjective Patient seen and examined:: with staff, chart reviewed, other (pt crying, says anxious) Patient is:: awake, verbal, interactive, in bed Patient Complaints of:: congestion, bloated Per staff patient has:: no adverse event, no episodes of fall, tolerating meds Internal Medicine Objective - Results Result Diagrams: 03/11/19 05:20 03/11/19 05:20 Recent Labs: Laboratory Last Values WBC 10.6 Th/cmm (4.8-10.8) 03/11/19 05:20 RBC 3.35 Mil/cmm (4.30-5.70) L 03/11/19 05:20 Hgb 10.3 gm/dL (12-16) L 03/11/19 05:20 Hct 30.8 % (41.0-60) L 03/11/19 05:20 MCV 92.2 fl (80-99) 03/11/19 05:20 MCH 30.8 pg (26.0-30.0) H 03/11/19 05:20 MCHC Differential 33.4 pg (28.0-36.0) 03/11/19 05:20 RDW 15.0 % (11.5-20.0) 03/11/19 05:20 Plt Count 304 Th/cmm (150-400) 03/11/19 05:20 MPV 7.4 fl 03/11/19 05:20 Add Manual Diff YES 03/08/19 04:10 Neutrophils % 78.3 % (40.0-80.0) 03/11/19 05:20 Band Neutrophils % 0 % (0-10) 03/09/19 04:15 Lymphocytes % 16.3 % (20.0-50.0) L 03/11/19 05:20 Monocytes % 4.2 % (2.0-10.0) 03/11/19 05:20 Eosinophils % 1.2 % (0.0-5.0) 03/11/19 05:20 Basophils % 0.0 % (0.0-2.0) 03/11/19 05:20 Neutrophils (Manual) 89 % (40-80) H 03/09/19 04:15 Lymphocytes 7 % (20-50) L 03/09/19 04:15 Monocytes 4 % (2-10) 03/09/19 04:15 Eosinophils 0 % (0-5) 03/09/19 04:15 Basophils 0 % (0-3) 03/09/19 04:15 Platelet Estimate ADEQUATE (NORMAL) 03/09/19 04:15 Smear Path Review Not Reportable 03/08/19 04:10 PT 9.7 SECONDS (9.5-11.5) 03/07/19 18:10 INR 0.93 (0.5-1.4) 03/07/19 18:10 PTT (Actin FS) 28.8 SECONDS (26.0-38.0) 03/07/19 18:10 Sodium 134 mEq/L (136-145) L 03/11/19 05:20 Potassium 3.4 mEq/L (3.5-5.1) L 03/11/19 05:20 Chloride 97 mEq/L (98-107) L 03/11/19 05:20 Carbon Dioxide 26.4 mEq/L (21.0-31.0) 03/11/19 05:20 Anion Gap 14.0 (7.0-16.0) 03/11/19 05:20 BUN 40 mg/dL (7-25) H 03/11/19 05:20 Creatinine 8.8 mg/dL (0.7-1.3) H* 03/11/19 05:20 Est GFR ( Amer) 9.2 ml/min (>90) 03/11/19 05:20 Est GFR (Non-Af Amer) 7.6 ml/min 03/11/19 05:20 BUN/Creatinine Ratio 4.5 03/11/19 05:20 Glucose 140 mg/dL (70-105) H 03/11/19 05:20 POC Glucose 150 MG/DL (70 - 105) H 03/11/19 10:35 Whole Bld Lactic Acid 1.36 mmol/L (0.60-1.99) 03/07/19 18:10 Calcium 7.8 mg/dL (8.6-10.3) L 03/11/19 05:20 Magnesium 2.4 mg/dL (1.9-2.7) 03/10/19 05:40 Total Bilirubin 0.4 mg/dL (0.3-1.0) 03/10/19 05:40 AST 7 U/L (13-39) L 03/10/19 05:40 ALT 4 U/L (7-52) L 03/10/19 05:40 Alkaline Phosphatase 99 U/L (34-104) 03/10/19 05:40 B-Natriuretic Peptide 873.0 pg/mL (5.0-100.0) H 03/10/19 05:40 Total Protein 6.6 gm/dL (6.0-8.3) 03/10/19 05:40 Albumin 3.4 gm/dL (4.2-5.5) L 03/10/19 05:40 Globulin 3.2 gm/dL 03/10/19 05:40 Albumin/Globulin Ratio 1.1 (1.0-1.8) 03/10/19 05:40 Amylase 28 U/L (29-103) L 03/07/19 18:10 Lipase 16 U/L (11-82) 03/07/19 18:10 Random Vancomycin 15.8 ug/mL (5.0-40.0) 03/11/19 05:20 - Physical Exam Vitals and I&O: Vital Signs Temp 97.9 F 03/11/19 08:00 Pulse 79 03/11/19 08:42 Resp 18 03/11/19 12:00 BP 174/86 03/11/19 08:42 Pulse Ox 99 03/11/19 08:00 Intake & Output 03/10/19 03/11/19 03/11/19 18:59 06:59 18:59 Intake Total 600 930 Output Total 2500 0 Balance -1900 930 Weight (lbs) 112.491 kg 116.845 kg Intake: Intake, IV Amount 100 450 Erythromycin Lact 250 mg 100 200 In Sodium Chloride 0.9% 100 ml @ 100 mls/hr IV Q8H [facility] Rx#:[id number] Piperacillin Sodium/ 150 Tazobact 2.25 gm In Sodium Chloride 0.9% 50 ml @ 100 mls/hr IV Q8HR [facility] Rx#:[id number] metroNIDAZOLE 500mg/NS 100 100mL 500 mg In 100 ml @ 100 mls/hr IV Q12HR@0600, 1800 [facility] Rx#:[id number] Oral 500 480 Output: Urine 0 Hemodialysis 2500 Other: # Voids 2 # Bowel Movements 1 1 Weight Source Bedscale Bedscale Active Medications: Current Medications Acetaminophen (Tylenol) 650 mg PO Q4H PRN PRN Reason: Mild Pain (1-3) or Fever >101 Stop: 05/06/19 20:59 Last Admin: 03/09/19 21:05 Dose: 650 mg Al Hydrox/Mg Hydrox/Simethicone (Maalox) 30 ml PO Q6H PRN PRN Reason: Dyspepsia Stop: 05/06/19 20:59 Dextrose (D50w) 50 ml IVP PRN PRN PRN Reason: Blood Glucose less than 70 Stop: 05/06/19 21:08 Dextrose (Glutose 40%) 18.75 gm PO PRN PRN PRN Reason: Blood Glucose less than 70 Stop: 05/06/19 21:08 Diphenhydramine HCl (Benadryl 50 Mg/Ml) 50 mg IVP Q8HR PRN PRN Reason: Nausea Stop: 05/08/19 12:59 Glucagon (Glucagen) 1 mg IM PRN PRN PRN Reason: Blood Glucose less than 70 Stop: 05/06/19 21:08 Heparin Sodium (Porcine) (Heparin) 5,000 units SUBQ Q12HR [facility] Stop: 05/06/19 20:59 Last Admin: 03/11/19 08:42 Dose: 5,000 units Hydromorphone HCl (Dilaudid) 1 mg IVP Q4HR PRN PRN Reason: Pain (Severe) Stop: 05/06/19 21:08 Last Admin: 03/11/19 10:34 Dose: 1 mg Piperacillin Sod/Tazobactam (Sod 2.25 gm/ Sodium Chloride) 50 mls @ 100 mls/hr IV Q8HR [facility] Stop: 05/07/19 12:59 Last Admin: 03/11/19 12:04 Dose: 100 mls/hr Erythromycin Lactobionate 250 (mg/ Sodium Chloride) 100 mls @ 100 mls/hr IV Q8H [facility] Stop: 05/08/19 07:59 Last Admin: 03/11/19 08:41 Dose: 100 mls/hr Dextrose/Sodium Chloride (D5-0.9%Ns) 1,000 mls @ 40 mls/hr IV .Q24H [facility] Stop: 05/08/19 12:59 Last Admin: 03/10/19 13:30 Dose: 40 mls/hr Insulin Human Lispro (Humalog Insulin Sliding Scale) 0 units SUBQ ACHS [facility]; Protocol Stop: 05/07/19 07:29 Last Admin: 03/11/19 10:49 Dose: Not Given Metoprolol Tartrate (Lopressor) 50 mg PO BID [facility] Stop: 05/07/19 08:59 Last Admin: 03/11/19 08:42 Dose: 50 mg Miscellaneous (Clinical Monitoring) 1 ea MC DAILY PRN PRN Reason: RENAL DOSING Stop: 05/07/19 08:08 Ondansetron HCl (Zofran) 4 mg IV Q8H PRN PRN Reason: Nausea / Vomiting Stop: 05/08/19 07:36 Last Admin: 03/11/19 08:42 Dose: 4 mg Sodium Bicarbonate (Sodium Bicarbonate) 650 mg PO BID [facility]; Protocol Stop: 05/07/19 08:59 Last Admin: 03/11/19 08:41 Dose: 650 mg Valsartan (Diovan) 80 mg PO DAILY [facility] Stop: 05/07/19 12:50 Last Admin: 03/11/19 08:41 Dose: 80 mg Vitamin B Complex/Vit C/Folic Acid (Vitamin B Complex W/Vitamin C) 1 tab PO DAILY [facility] Stop: 05/07/19 08:59 Last Admin: 03/11/19 08:41 Dose: 1 tab Vitamin D (Vitamin D) 400 iu PO DAILY [facility] Stop: 05/07/19 08:59 Last Admin: 03/11/19 08:42 Dose: 400 iu Zolpidem Tartrate (Ambien) 10 mg PO HS PRN PRN Reason: Insomnia Stop: 05/06/19 20:59 Last Admin: 03/10/19 23:59 Dose: 10 mg General: alert HEENT: NC/AT, PERRLA Neck: Supple, No JVD, No LAD Lungs: rales Cardiovascular: RRR, Normal S1, Normal S2, without murmur Abdomen: soft, globular, positive bowel sound Extremities: excoriation Neurological: no change - Procedures Procedures: Procedures Procedure Code Date PERFORMANCE OF URINARY FILTRATION, <6 HRS/DAY [id number] 11/04/18 Internal Medicine Assmt/Plan - Assessment Assessment: ASSESSMENT AND PLAN: Abdominal pain of unclear etiology, leukocytosis, sepsis, diabetes, hypertension, end-stage renal disease, and anemia. obesity ?gastroparesis left nasal cellulitis - Plan Plan: PLAN: We will empirically start the patient on osyn as well as Flagyl. We will provide the patient with adequate pain control, ADA diet, and insulin sliding scale. We will continue to monitor the patient closely. gi and nephro consulted mother at bedside \will order ct sinus will add ativan refer to pscyhiatry Nutritional Asmnt/Malnutr-PDOC - Dietary Evaluation Malnutrition Findings (Please click <Entered> for more info): Nutritional Asmnt/Malnutrition Start: 03/08/19 14: 51 Text: Status: Complete Freq: Protocol: Document 03/08/19 14:51 BILLIE (Rec: 03/08/19 14:56 BILLIE [email or web address]) Nutritional Asmnt/Malnutrition Patient General Information Nutritional Screening Low Risk Diagnosis Abdominal pain, Sepsis Pertinent Medical Hx/Surgical Hx HTN, DM, ESRD (on hemodialysis ) Subjective Information Pt is a 28-year-old male admitted from home on 03/07 c/o upper abdominal pain with intermittent N/V x2 days. Pt has ESRD and is on hemodialysis. Per nurse note ( 03/08), Pt felt nauseas this morning and was given Zofran, no emesis was noted. Spoke with Pt at bedside with family , Pt was having dialysis at this time. Stated he still felt nauseas and just wanted some fruit. Stated he only ate some peaches at breakfast and did not eat any lunch. I brought Pt a fruit cup and Nepro supplement shake. Pt stated he understood his Renal diet and did not need any additional education or information. Will continue to monitor PO intake and provide Nepro shakes with meals. HT: 510 WT: 249 LB (113.18 kg) ABW: 187 LB (84.89kg) BMI: 35.76 (Obese II) GI: nausea, abdominal pain, large, round BM: Not Noted I/O: 50/Not Noted Skin: warm, dry, elastic Wound: nose skin tear with scab Flako: 18 Diet Order: Renal, NCS Estimated Energy Needs: (HD, ABW) 2970 kcals (35 kcals/kg) 102-119 Pro (1.2-1.4g/kg) Fluids: per MD order Current Diet Order/ Nutrition Support Renal, NCS Pertinent Medications Maalox, D50w (PRN), Glutose 40 % (PRN), D5-0.9%ns, Glucagen ( PRN), INS-SS, sodium bicarbonate, Vitamin B Complex w/ Vitamin C, Vitamin D Pertinent Labs 03/08: Hgb/Hct 10.3/30.8, Na 129, BUN/Cr 71/13.2, Glucose 172, Ca 8.4, AST 6, ALT 5, Alk Phos 117, BNP 332, Alb 3.6 POC Glucose (Last 24 hours): 169, 156 03/07: Hgb/Hct 11.3/33.9, Na 127, BUN/Cr 68/12.9, Glucose 147, AST 9, ALT 6, Alk Phos 136, Amylase 28 Nutritional Hx/Data Height 1.78 m Height (Calculated Centimeters) 177.8 Current Weight (lbs) 112.945 kg Weight (Calculated Kilograms) 112.9 Weight (Calculated Grams) 535645.5 [place] Body Weight 166lb (75.45kg) % [place] Body Weight 150 Body Mass Index (BMI) 35.7 Weight Status Obese GI Symptoms GI Symptoms Nausea Last BM Not Noted Skin Integrity/Comment: Warm, dry, elastic Wound: nose skin tear with scab Flako: 18 Current %PO Negligible < 25% Estimated Nutritional Goals BEE in Kcals: Adj wt of IBW Calories/Kcals/Kg 35 Kcals Calculated 2970 Protein: Adj wt of IBW Protein g/k.2-1.4 Protein Calculated 102-119 Fluid: ml per MD order Nutritional Problem 3. Problem Problem Inadequate energy and Pro intake Etiology r/t poor appetite/nausea Signs/Symptoms: aeb Pt self-report 2. Problem Problem Higher calorie and protein needs Etiology r/t Pt Hx ESRD on HD Signs/Symptoms: aeb diet order Renal 80gm Pro 1. Problem Problem Altered nutrition related labs Etiology r/t Hx ESRD and DM Signs/Symptoms: aeb lab results (03/08) Na 129, BUN/Cr 71/13.2, Glucose 172, Ca 8.4, AST 6, ALT 5, Alk Phos 117, Alb 3.6 Malnutrition Related to Morbid Obesity Malnutrition related to morbid obesity No Intervention/Recommendation Comments 1. Continue with Renal, NCS diet as ordered. 2. Continue antihyperglycemic medications for glucose control per MD order. 3. Add Nepro nutritional shake to meals BID until PO intake increases to meet nutritional needs (completed). Expected Outcomes/Goals Expected Outcomes/Goals 1. PO intake to meet 75% of nutritional needs. 2. Monitor PO intake, wt, skin integrity, and nutrition related labs to trend WNL. 3. F/U as high risk in 2-3 days, 03/10-03/11
[2019-03-11] MEDS: D5-0.9%NS 1,000 ML IV SCH (14:13)
--- NOTE | 2019-03-11 17:02 | Infectious Disease Prog Note ---
Infectious Disease Subjective - Review of Systems Service Date: 03/11/19 Events since last encounter: cc diverticulitis/gastroparesis nose cellulitis ct sinus ordered d[facility]w [facility] ros no fevr o.e vss chest clera nasla cellulitis epifastric tender blind no edema Vital Signs - 24 hr 03/10/19 03/10/19 03/10/19 18:00 19:13 20:00 Temp HR 77 RR 18 20 BP 149/70 O2 Sat % 100 03/10/19 03/10/19 03/10/19 20:47 21:47 22:00 Temp 98.3 F HR 82 77 82 RR 20 BP 145/83 164/114 O2 Sat % 98 03/11/19 03/11/19 03/11/19 00:00 04:00 07:33 Temp 98.2 F 97.9 F HR 77 87 80 RR 20 20 18 BP 145/83 119/74 O2 Sat % 98 100 100 03/11/19 03/11/19 03/11/19 08:00 08:41 08:42 Temp 97.9 F HR 79 79 79 RR 18 BP 174/86 174/86 174/86 O2 Sat % 99 03/11/19 03/11/19 03/11/19 12:00 15:53 16:00 Temp 97.6 F 98.0 F HR 85 67 67 RR 20 19 BP 168/93 173/100 O2 Sat % 98 99 03/11/19 03/11/19 16:27 16:47 Temp HR 74 67 RR BP 162/100 173/100 O2 Sat % Microbiology 03/07/19 18:40 Blood - Final 03/08/19 13:15 Nares - Final NO MRSA ISOLATED Laboratory Results - last 24 hr 03/10/19 03/10/19 03/11/19 18:25 20:43 05:20 WBC RBC Hgb Hct MCV MCH MCHC Differential RDW Plt Count MPV Neutrophils % Lymphocytes % Monocytes % Eosinophils % Basophils % Sodium Potassium Chloride Carbon Dioxide Anion Gap BUN Creatinine Est GFR ( Amer) Est GFR (Non-Af Amer) BUN/Creatinine Ratio Glucose POC Glucose 163 H 124 H Calcium Random Vancomycin 15.8 03/11/19 03/11/19 03/11/19 05:20 05:20 05:41 WBC 10.6 RBC 3.35 L Hgb 10.3 L Hct 30.8 L MCV 92.2 MCH 30.8 H MCHC Differential 33.4 RDW 15.0 Plt Count 304 MPV 7.4 Neutrophils % 78.3 Lymphocytes % 16.3 L Monocytes % 4.2 Eosinophils % 1.2 Basophils % 0.0 Sodium 134 L Potassium 3.4 L Chloride 97 L Carbon Dioxide 26.4 Anion Gap 14.0 BUN 40 H Creatinine 8.8 H* Est GFR ( Amer) 9.2 Est GFR (Non-Af Amer) 7.6 BUN/Creatinine Ratio 4.5 Glucose 140 H POC Glucose 125 H Calcium 7.8 L Random Vancomycin 03/11/19 03/11/19 10:35 15:37 WBC RBC Hgb Hct MCV MCH MCHC Differential RDW Plt Count MPV Neutrophils % Lymphocytes % Monocytes % Eosinophils % Basophils % Sodium Potassium Chloride Carbon Dioxide Anion Gap BUN Creatinine Est GFR ( Amer) Est GFR (Non-Af Amer) BUN/Creatinine Ratio Glucose POC Glucose 150 H 136 H Calcium Random Vancomycin Current Medications Acetaminophen (Tylenol) 650 mg PO Q4H PRN PRN Reason: Mild Pain (1-3) or Fever >101 Stop: 05/06/19 20:59 Last Admin: 03/09/19 21:05 Dose: 650 mg Al Hydrox/Mg Hydrox/Simethicone (Maalox) 30 ml PO Q6H PRN PRN Reason: Dyspepsia Stop: 05/06/19 20:59 Dextrose (D50w) 50 ml IVP PRN PRN PRN Reason: Blood Glucose less than 70 Stop: 05/06/19 21:08 Dextrose (Glutose 40%) 18.75 gm PO PRN PRN PRN Reason: Blood Glucose less than 70 Stop: 05/06/19 21:08 Diphenhydramine HCl (Benadryl 50 Mg/Ml) 50 mg IVP Q8HR PRN PRN Reason: Nausea Stop: 05/08/19 12:59 Glucagon (Glucagen) 1 mg IM PRN PRN PRN Reason: Blood Glucose less than 70 Stop: 05/06/19 21:08 Heparin Sodium (Porcine) (Heparin) 5,000 units SUBQ Q12HR [facility] Stop: 05/06/19 20:59 Last Admin: 03/11/19 08:42 Dose: 5,000 units Hydromorphone HCl (Dilaudid) 1 mg IVP Q4HR PRN PRN Reason: Pain (Severe) Stop: 05/06/19 21:08 Last Admin: 03/11/19 14:34 Dose: 1 mg Piperacillin Sod/Tazobactam (Sod 2.25 gm/ Sodium Chloride) 50 mls @ 100 mls/hr IV Q8HR [facility] Stop: 05/07/19 12:59 Last Admin: 03/11/19 12:04 Dose: 100 mls/hr Erythromycin Lactobionate 250 (mg/ Sodium Chloride) 100 mls @ 100 mls/hr IV Q8H [facility] Stop: 05/08/19 07:59 Last Admin: 03/11/19 16:13 Dose: 100 mls/hr Dextrose/Sodium Chloride (D5-0.9%Ns) 1,000 mls @ 40 mls/hr IV .Q24H [facility] Stop: 05/08/19 12:59 Last Admin: 03/11/19 14:13 Dose: 40 mls/hr Insulin Human Lispro (Humalog Insulin Sliding Scale) 0 units SUBQ ACHS [facility]; Protocol Stop: 05/07/19 07:29 Last Admin: 03/11/19 15:43 Dose: Not Given Lorazepam (Ativan) 1 mg PO Q6HR PRN; Protocol PRN Reason: Restlessness Stop: 05/10/19 12:40 Last Admin: 03/11/19 15:42 Dose: 1 mg Metoprolol Tartrate (Lopressor) 50 mg PO BID [facility] Stop: 05/07/19 08:59 Last Admin: 03/11/19 16:27 Dose: 50 mg Miscellaneous (Clinical Monitoring) 1 ea MC DAILY PRN PRN Reason: RENAL DOSING Stop: 05/07/19 08:08 Ondansetron HCl (Zofran) 4 mg IV Q8H PRN PRN Reason: Nausea / Vomiting Stop: 05/08/19 07:36 Last Admin: 03/11/19 08:42 Dose: 4 mg Sodium Bicarbonate (Sodium Bicarbonate) 650 mg PO BID [facility]; Protocol Stop: 05/07/19 08:59 Last Admin: 03/11/19 16:27 Dose: 650 mg Valsartan (Diovan) 80 mg PO DAILY [facility] Stop: 05/07/19 12:50 Last Admin: 03/11/19 08:41 Dose: 80 mg Vitamin B Complex/Vit C/Folic Acid (Vitamin B Complex W/Vitamin C) 1 tab PO DAILY [facility] Stop: 05/07/19 08:59 Last Admin: 03/11/19 08:41 Dose: 1 tab Vitamin D (Vitamin D) 400 iu PO DAILY [facility] Stop: 05/07/19 08:59 Last Admin: 03/11/19 08:42 Dose: 400 iu Zolpidem Tartrate (Ambien) 10 mg PO HS PRN PRN Reason: Insomnia Stop: 05/06/19 20:59 Last Admin: 03/10/19 23:59 Dose: 10 mg Subjective: cc abd pain diverticulitis/nasal cellulitis hpi- wb c decresed cx note ros no fevrer o,e Vital Signs - 24 hr 03/09/19 03/09/19 03/09/19 17:19 19:10 20:00 Temp 98.2 F HR 91 83 80 RR 20 19 BP 161/113 152/90 O2 Sat % 100 100 03/09/19 03/10/19 03/10/19 23:42 00:00 00:42 Temp 98.3 F HR 75 72 82 RR 18 BP 155/95 133/89 O2 Sat % 100 03/10/19 03/10/19 03/10/19 04:00 08:00 08:44 Temp 97.3 F 98.2 F HR 71 72 72 RR 20 18 20 BP 133/89 165/91 O2 Sat % 100 98 98 03/10/19 03/10/19 03/10/19 09:25 09:43 12:00 Temp 97.9 F HR 72 72 74 RR 19 BP 165/91 165/91 142/82 O2 Sat % 96 03/10/19 03/10/19 16:05 16:07 Temp HR 78 78 RR BP 194/115 194/115 O2 Sat % mild pale no icterus blind s1s2 chest clear abs epigastric tender ext pulse Laboratory Results - last 24 hr 03/09/19 03/09/19 03/10/19 17:39 21:12 05:40 WBC 12.2 H RBC 3.40 L Hgb 10.3 L Hct 31.5 L MCV 92.7 MCH 30.3 H MCHC Differential 32.7 RDW 15.7 Plt Count 299 MPV 7.9 Neutrophils % 75.3 Lymphocytes % 16.0 L Monocytes % 6.9 Eosinophils % 1.1 Basophils % 0.7 Sodium Potassium Chloride Carbon Dioxide Anion Gap BUN Creatinine Est GFR ( Amer) Est GFR (Non-Af Amer) BUN/Creatinine Ratio Glucose POC Glucose 115 H 135 H Calcium Magnesium Total Bilirubin AST ALT Alkaline Phosphatase B-Natriuretic Peptide Total Protein Albumin Globulin Albumin/Globulin Ratio Random Vancomycin 03/10/19 03/10/19 03/10/19 05:40 05:40 05:40 WBC RBC Hgb Hct MCV MCH MCHC Differential RDW Plt Count MPV Neutrophils % Lymphocytes % Monocytes % Eosinophils % Basophils % Sodium 134 L Potassium 4.0 Chloride 98 Carbon Dioxide 19.5 L Anion Gap 20.5 H BUN 57 H Creatinine 11.8 H* Est GFR ( Amer) 6.5 Est GFR (Non-Af Amer) 5.4 BUN/Creatinine Ratio 4.8 Glucose 118 H POC Glucose Calcium 8.4 L Magnesium 2.4 Total Bilirubin 0.4 AST 7 L ALT 4 L Alkaline Phosphatase 99 B-Natriuretic Peptide 873.0 H Total Protein 6.6 Albumin 3.4 L Globulin 3.2 Albumin/Globulin Ratio 1.1 Random Vancomycin 24.4 Microbiology 03/07/19 18:40 Blood - Final 03/08/19 13:15 Nares - Final NO MRSA ISOLATED Diagnoses SEPSIS, UNSPECIFIED ORGANISM (03/07/19) ANEMIA, UNSPECIFIED (03/07/19) ELEVATED WHITE BLOOD CELL COUNT, UNSPECIFIED (03/07/19) ESSENTIAL (PRIMARY) HYPERTENSION (03/07/19) END STAGE RENAL DISEASE (03/07/19) UNSPECIFIED ABDOMINAL PAIN (03/07/19) WEAKNESS (03/07/19) DEPENDENCE ON RENAL DIALYSIS (03/07/19) Current Medications Acetaminophen (Tylenol) 650 mg PO Q4H PRN PRN Reason: Mild Pain (1-3) or Fever >101 Stop: 05/06/19 20:59 Last Admin: 03/09/19 21:05 Dose: 650 mg Al Hydrox/Mg Hydrox/Simethicone (Maalox) 30 ml PO Q6H PRN PRN Reason: Dyspepsia Stop: 05/06/19 20:59 Dextrose (D50w) 50 ml IVP PRN PRN PRN Reason: Blood Glucose less than 70 Stop: 05/06/19 21:08 Dextrose (Glutose 40%) 18.75 gm PO PRN PRN PRN Reason: Blood Glucose less than 70 Stop: 05/06/19 21:08 Diphenhydramine HCl (Benadryl 50 Mg/Ml) 50 mg IVP Q8HR [facility] Stop: 05/08/19 12:59 Last Admin: 03/10/19 13:25 Dose: 50 mg Glucagon (Glucagen) 1 mg IM PRN PRN PRN Reason: Blood Glucose less than 70 Stop: 05/06/19 21:08 Heparin Sodium (Porcine) (Heparin) 5,000 units SUBQ Q12HR [facility] Stop: 05/06/19 20:59 Last Admin: 03/10/19 09:41 Dose: 5,000 units Heparin Sodium (Porcine) (Heparin Sodium) 0 [place] [facility] [place]: 03/11/19 00:00 Last Admin: 03/10/19 00:13 Dose: Not Given Heparin Sodium (Porcine) (Heparin) 5,000 [place] [facility] [place]: 03/11/19 00:00 Last Admin: 03/10/19 09:45 Dose: Not Given Hydromorphone HCl (Dilaudid) 1 mg IVP Q4HR PRN PRN Reason: Pain (Severe) Stop: 05/06/19 21:08 Last Admin: 03/10/19 14:36 Dose: 1 mg Metronidazole (Flagyl) 500 mg in 100 mls @ 100 mls/hr IV Q12HR@0600,1800 [facility]; Protocol Stop: 05/07/19 17:59 Last Admin: 03/10/19 05:45 Dose: 100 mls/hr Piperacillin Sod/Tazobactam (Sod 2.25 gm/ Sodium Chloride) 50 mls @ 100 mls/hr IV Q8HR [facility] Stop: 05/07/19 12:59 Last Admin: 03/10/19 14:59 Dose: 100 mls/hr Erythromycin Lactobionate 250 (mg/ Sodium Chloride) 100 mls @ 100 mls/hr IV Q8H [facility] Stop: 05/08/19 07:59 Last Admin: 03/10/19 16:22 Dose: 100 mls/hr Dextrose/Sodium Chloride (D5-0.9%Ns) 1,000 mls @ 40 mls/hr IV .Q24H [facility] Stop: 05/08/19 12:59 Last Admin: 03/10/19 13:30 Dose: 40 mls/hr Insulin Human Lispro (Humalog Insulin Sliding Scale) 0 units SUBQ ACHS [facility]; Protocol Stop: 05/07/19 07:29 Last Admin: 03/10/19 12:00 Dose: Not Given Metoprolol Tartrate (Lopressor) 50 mg PO BID [facility] Stop: 05/07/19 08:59 Last Admin: 03/10/19 16:05 Dose: 50 mg Miscellaneous (Clinical Monitoring) 1 ea MC DAILY PRN PRN Reason: RENAL DOSING Stop: 05/07/19 08:08 Miscellaneous (Vancomycin Iv Per Pharmacy) 1 ea PRN PRN PRN Reason: PROTOCOL Stop: 05/08/19 18:53 Ondansetron HCl (Zofran) 4 mg IV Q8H PRN PRN Reason: Nausea / Vomiting Stop: 05/08/19 07:36 Sodium Bicarbonate (Sodium Bicarbonate) 650 mg PO BID [facility]; Protocol Stop: 05/07/19 08:59 Last Admin: 03/10/19 16:06 Dose: 650 mg Valsartan (Diovan) 80 mg PO DAILY [facility] Stop: 05/07/19 12:50 Last Admin: 03/10/19 16:07 Dose: 80 mg Vitamin B Complex/Vit C/Folic Acid (Vitamin B Complex W/Vitamin C) 1 tab PO DAILY [facility] Stop: 05/07/19 08:59 Last Admin: 03/10/19 09:41 Dose: 1 tab Vitamin D (Vitamin D) 400 iu PO DAILY [facility] Stop: 05/07/19 08:59 Last Admin: 03/10/19 09:48 Dose: 400 iu Zolpidem Tartrate (Ambien) 10 mg PO HS PRN PRN Reason: Insomnia Stop: 05/06/19 20:59 Last Admin: 03/09/19 23:44 Dose: 10 mg Infectious Disease Objective - Results Result Diagrams: 03/11/19 05:20 03/11/19 05:20 Recent Labs: Laboratory Last Values WBC 10.6 Th/cmm (4.8-10.8) 03/11/19 05:20 RBC 3.35 Mil/cmm (4.30-5.70) L 03/11/19 05:20 Hgb 10.3 gm/dL (12-16) L 03/11/19 05:20 Hct 30.8 % (41.0-60) L 03/11/19 05:20 MCV 92.2 fl (80-99) 03/11/19 05:20 MCH 30.8 pg (26.0-30.0) H 03/11/19 05:20 MCHC Differential 33.4 pg (28.0-36.0) 03/11/19 05:20 RDW 15.0 % (11.5-20.0) 03/11/19 05:20 Plt Count 304 Th/cmm (150-400) 03/11/19 05:20 MPV 7.4 fl 03/11/19 05:20 Add Manual Diff YES 03/08/19 04:10 Neutrophils % 78.3 % (40.0-80.0) 03/11/19 05:20 Band Neutrophils % 0 % (0-10) 03/09/19 04:15 Lymphocytes % 16.3 % (20.0-50.0) L 03/11/19 05:20 Monocytes % 4.2 % (2.0-10.0) 03/11/19 05:20 Eosinophils % 1.2 % (0.0-5.0) 03/11/19 05:20 Basophils % 0.0 % (0.0-2.0) 03/11/19 05:20 Neutrophils (Manual) 89 % (40-80) H 03/09/19 04:15 Lymphocytes 7 % (20-50) L 03/09/19 04:15 Monocytes 4 % (2-10) 03/09/19 04:15 Eosinophils 0 % (0-5) 03/09/19 04:15 Basophils 0 % (0-3) 03/09/19 04:15 Platelet Estimate ADEQUATE (NORMAL) 03/09/19 04:15 Smear Path Review Not Reportable 03/08/19 04:10 PT 9.7 SECONDS (9.5-11.5) 03/07/19 18:10 INR 0.93 (0.5-1.4) 03/07/19 18:10 PTT (Actin FS) 28.8 SECONDS (26.0-38.0) 03/07/19 18:10 Sodium 134 mEq/L (136-145) L 03/11/19 05:20 Potassium 3.4 mEq/L (3.5-5.1) L 03/11/19 05:20 Chloride 97 mEq/L (98-107) L 03/11/19 05:20 Carbon Dioxide 26.4 mEq/L (21.0-31.0) 03/11/19 05:20 Anion Gap 14.0 (7.0-16.0) 03/11/19 05:20 BUN 40 mg/dL (7-25) H 03/11/19 05:20 Creatinine 8.8 mg/dL (0.7-1.3) H* 03/11/19 05:20 Est GFR ( Amer) 9.2 ml/min (>90) 03/11/19 05:20 Est GFR (Non-Af Amer) 7.6 ml/min 03/11/19 05:20 BUN/Creatinine Ratio 4.5 03/11/19 05:20 Glucose 140 mg/dL (70-105) H 03/11/19 05:20 POC Glucose 136 MG/DL (70 - 105) H 03/11/19 15:37 Whole Bld Lactic Acid 1.36 mmol/L (0.60-1.99) 03/07/19 18:10 Calcium 7.8 mg/dL (8.6-10.3) L 03/11/19 05:20 Magnesium 2.4 mg/dL (1.9-2.7) 03/10/19 05:40 Total Bilirubin 0.4 mg/dL (0.3-1.0) 03/10/19 05:40 AST 7 U/L (13-39) L 03/10/19 05:40 ALT 4 U/L (7-52) L 03/10/19 05:40 Alkaline Phosphatase 99 U/L (34-104) 03/10/19 05:40 B-Natriuretic Peptide 873.0 pg/mL (5.0-100.0) H 03/10/19 05:40 Total Protein 6.6 gm/dL (6.0-8.3) 03/10/19 05:40 Albumin 3.4 gm/dL (4.2-5.5) L 03/10/19 05:40 Globulin 3.2 gm/dL 03/10/19 05:40 Albumin/Globulin Ratio 1.1 (1.0-1.8) 03/10/19 05:40 Amylase 28 U/L (29-103) L 03/07/19 18:10 Lipase 16 U/L (11-82) 03/07/19 18:10 Random Vancomycin 15.8 ug/mL (5.0-40.0) 03/11/19 05:20 - Physical Exam Vitals and I&O: Vital Signs Temp 98.0 F 03/11/19 16:00 Pulse 67 03/11/19 16:47 Resp 19 03/11/19 16:00 BP 173/100 03/11/19 16:47 Pulse Ox 99 03/11/19 16:00 Intake & Output 03/10/19 03/11/19 03/11/19 18:59 06:59 18:59 Intake Total 169 360 1946.667 Output Total 2500 0 Balance -0626 963 5664.667 Weight (lbs) 112.491 kg 116.845 kg Intake: Intake, IV Amount 251 700 6148.667 D5-0.9%Ns 1,000 ml @ 40 988.667 mls/hr IV .Q24H [facility] Rx#: [id number] Erythromycin Lact 250 mg 100 200 100 In Sodium Chloride 0.9% 100 ml @ 100 mls/hr IV Q8H [facility] Rx#:[id number] Piperacillin Sodium/ 150 Tazobact 2.25 gm In Sodium Chloride 0.9% 50 ml @ 100 mls/hr IV Q8HR [facility] Rx#:[id number] metroNIDAZOLE 500mg/NS 100 100mL 500 mg In 100 ml @ 100 mls/hr IV Q12HR@0600, 1800 [facility] Rx#:[id number] Oral 500 480 Output: Urine 0 Hemodialysis 2500 Other: # Voids 2 # Bowel Movements 1 1 Weight Source Bedscale Bedscale Active Medications: Current Medications Acetaminophen (Tylenol) 650 mg PO Q4H PRN PRN Reason: Mild Pain (1-3) or Fever >101 Stop: 05/06/19 20:59 Last Admin: 03/09/19 21:05 Dose: 650 mg Al Hydrox/Mg Hydrox/Simethicone (Maalox) 30 ml PO Q6H PRN PRN Reason: Dyspepsia Stop: 05/06/19 20:59 Dextrose (D50w) 50 ml IVP PRN PRN PRN Reason: Blood Glucose less than 70 Stop: 05/06/19 21:08 Dextrose (Glutose 40%) 18.75 gm PO PRN PRN PRN Reason: Blood Glucose less than 70 Stop: 05/06/19 21:08 Diphenhydramine HCl (Benadryl 50 Mg/Ml) 50 mg IVP Q8HR PRN PRN Reason: Nausea Stop: 05/08/19 12:59 Glucagon (Glucagen) 1 mg IM PRN PRN PRN Reason: Blood Glucose less than 70 Stop: 05/06/19 21:08 Heparin Sodium (Porcine) (Heparin) 5,000 units SUBQ Q12HR [facility] Stop: 05/06/19 20:59 Last Admin: 03/11/19 08:42 Dose: 5,000 units Hydromorphone HCl (Dilaudid) 1 mg IVP Q4HR PRN PRN Reason: Pain (Severe) Stop: 05/06/19 21:08 Last Admin: 03/11/19 14:34 Dose: 1 mg Piperacillin Sod/Tazobactam (Sod 2.25 gm/ Sodium Chloride) 50 mls @ 100 mls/hr IV Q8HR [facility] Stop: 05/07/19 12:59 Last Admin: 03/11/19 12:04 Dose: 100 mls/hr Erythromycin Lactobionate 250 (mg/ Sodium Chloride) 100 mls @ 100 mls/hr IV Q8H [facility] Stop: 05/08/19 07:59 Last Admin: 03/11/19 16:13 Dose: 100 mls/hr Dextrose/Sodium Chloride (D5-0.9%Ns) 1,000 mls @ 40 mls/hr IV .Q24H [facility] Stop: 05/08/19 12:59 Last Admin: 03/11/19 14:13 Dose: 40 mls/hr Insulin Human Lispro (Humalog Insulin Sliding Scale) 0 units SUBQ ACHS [facility]; Protocol Stop: 05/07/19 07:29 Last Admin: 03/11/19 15:43 Dose: Not Given Lorazepam (Ativan) 1 mg PO Q6HR PRN; Protocol PRN Reason: Restlessness Stop: 05/10/19 12:40 Last Admin: 03/11/19 15:42 Dose: 1 mg Metoprolol Tartrate (Lopressor) 50 mg PO BID [facility] Stop: 05/07/19 08:59 Last Admin: 03/11/19 16:27 Dose: 50 mg Miscellaneous (Clinical Monitoring) 1 ea MC DAILY PRN PRN Reason: RENAL DOSING Stop: 05/07/19 08:08 Ondansetron HCl (Zofran) 4 mg IV Q8H PRN PRN Reason: Nausea / Vomiting Stop: 05/08/19 07:36 Last Admin: 03/11/19 08:42 Dose: 4 mg Sodium Bicarbonate (Sodium Bicarbonate) 650 mg PO BID [facility]; Protocol Stop: 05/07/19 08:59 Last Admin: 03/11/19 16:27 Dose: 650 mg Valsartan (Diovan) 80 mg PO DAILY [facility] Stop: 05/07/19 12:50 Last Admin: 03/11/19 08:41 Dose: 80 mg Vitamin B Complex/Vit C/Folic Acid (Vitamin B Complex W/Vitamin C) 1 tab PO DAILY [facility] Stop: 05/07/19 08:59 Last Admin: 03/11/19 08:41 Dose: 1 tab Vitamin D (Vitamin D) 400 iu PO DAILY [facility] Stop: 05/07/19 08:59 Last Admin: 03/11/19 08:42 Dose: 400 iu Zolpidem Tartrate (Ambien) 10 mg PO HS PRN PRN Reason: Insomnia Stop: 05/06/19 20:59 Last Admin: 03/10/19 23:59 Dose: 10 mg - Procedures Procedures: Procedures Procedure Code Date PERFORMANCE OF URINARY FILTRATION, <6 HRS/DAY [id number] 11/04/18 Infectious Disease Assmt/Plan - Problem List Patient Problems: All Active Problems NAUSEA, VOMITING, DIARRHEA WITH EPIGASTR (Acute) Nutritional Asmnt/Malnutr-PDOC - Dietary Evaluation Malnutrition Findings (Please click <Entered> for more info): Nutritional Asmnt/Malnutrition Start: 03/08/19 14: 51 Text: Status: Complete Freq: Protocol: Document 03/08/19 14:51 BILLIE (Rec: 03/08/19 14:56 BILLIE [email or web address]) Nutritional Asmnt/Malnutrition Patient General Information Nutritional Screening Low Risk Diagnosis Abdominal pain, Sepsis Pertinent Medical Hx/Surgical Hx HTN, DM, ESRD (on hemodialysis ) Subjective Information Pt is a 28-year-old male admitted from home on 03/07 c/o upper abdominal pain with intermittent N/V x2 days. Pt has ESRD and is on hemodialysis. Per nurse note ( 03/08), Pt felt nauseas this morning and was given Zofran, no emesis was noted. Spoke with Pt at bedside with family , Pt was having dialysis at this time. Stated he still felt nauseas and just wanted some fruit. Stated he only ate some peaches at breakfast and did not eat any lunch. I brought Pt a fruit cup and Nepro supplement shake. Pt stated he understood his Renal diet and did not need any additional education or information. Will continue to monitor PO intake and provide Nepro shakes with meals. HT: 510 WT: 249 LB (113.18 kg) ABW: 187 LB (84.89kg) BMI: 35.76 (Obese II) GI: nausea, abdominal pain, large, round BM: Not Noted I/O: 50/Not Noted Skin: warm, dry, elastic Wound: nose skin tear with scab Flako: 18 Diet Order: Renal, NCS Estimated Energy Needs: (HD, ABW) 2970 kcals (35 kcals/kg) 102-119 Pro (1.2-1.4g/kg) Fluids: per MD order Current Diet Order/ Nutrition Support Renal, NCS Pertinent Medications Maalox, D50w (PRN), Glutose 40 % (PRN), D5-0.9%ns, Glucagen ( PRN), INS-SS, sodium bicarbonate, Vitamin B Complex w/ Vitamin C, Vitamin D Pertinent Labs 03/08: Hgb/Hct 10.3/30.8, Na 129, BUN/Cr 71/13.2, Glucose 172, Ca 8.4, AST 6, ALT 5, Alk Phos 117, BNP 332, Alb 3.6 POC Glucose (Last 24 hours): 169, 156 03/07: Hgb/Hct 11.3/33.9, Na 127, BUN/Cr 68/12.9, Glucose 147, AST 9, ALT 6, Alk Phos 136, Amylase 28 Nutritional Hx/Data Height 1.78 m Height (Calculated Centimeters) 177.8 Current Weight (lbs) 112.945 kg Weight (Calculated Kilograms) 112.9 Weight (Calculated Grams) 481627.5 [place] Body Weight 166lb (75.45kg) % [place] Body Weight 150 Body Mass Index (BMI) 35.7 Weight Status Obese GI Symptoms GI Symptoms Nausea Last BM Not Noted Skin Integrity/Comment: Warm, dry, elastic Wound: nose skin tear with scab Flako: 18 Current %PO Negligible < 25% Estimated Nutritional Goals BEE in Kcals: Adj wt of IBW Calories/Kcals/Kg 35 Kcals Calculated 2970 Protein: Adj wt of IBW Protein g/k.2-1.4 Protein Calculated 102-119 Fluid: ml per MD order Nutritional Problem 3. Problem Problem Inadequate energy and Pro intake Etiology r/t poor appetite/nausea Signs/Symptoms: aeb Pt self-report 2. Problem Problem Higher calorie and protein needs Etiology r/t Pt Hx ESRD on HD Signs/Symptoms: aeb diet order Renal 80gm Pro 1. Problem Problem Altered nutrition related labs Etiology r/t Hx ESRD and DM Signs/Symptoms: aeb lab results (03/08) Na 129, BUN/Cr 71/13.2, Glucose 172, Ca 8.4, AST 6, ALT 5, Alk Phos 117, Alb 3.6 Malnutrition Related to Morbid Obesity Malnutrition related to morbid obesity No Intervention/Recommendation Comments 1. Continue with Renal, NCS diet as ordered. 2. Continue antihyperglycemic medications for glucose control per MD order. 3. Add Nepro nutritional shake to meals BID until PO intake increases to meet nutritional needs (completed). Expected Outcomes/Goals Expected Outcomes/Goals 1. PO intake to meet 75% of nutritional needs. 2. Monitor PO intake, wt, skin integrity, and nutrition related labs to trend WNL. 3. F/U as high risk in 2-3 days, 03/10-03/11
--- NOTE | 2019-03-11 17:13 | General Progress Note ---
Subjective - Review of Systems Service Date: 03/11/19 Subjective: feels better Objective - Results Result Diagrams: 03/11/19 05:20 03/11/19 05:20 Recent Labs: Laboratory Last Values WBC 10.6 Th/cmm (4.8-10.8) 03/11/19 05:20 RBC 3.35 Mil/cmm (4.30-5.70) L 03/11/19 05:20 Hgb 10.3 gm/dL (12-16) L 03/11/19 05:20 Hct 30.8 % (41.0-60) L 03/11/19 05:20 MCV 92.2 fl (80-99) 03/11/19 05:20 MCH 30.8 pg (26.0-30.0) H 03/11/19 05:20 MCHC Differential 33.4 pg (28.0-36.0) 03/11/19 05:20 RDW 15.0 % (11.5-20.0) 03/11/19 05:20 Plt Count 304 Th/cmm (150-400) 03/11/19 05:20 MPV 7.4 fl 03/11/19 05:20 Add Manual Diff YES 03/08/19 04:10 Neutrophils % 78.3 % (40.0-80.0) 03/11/19 05:20 Band Neutrophils % 0 % (0-10) 03/09/19 04:15 Lymphocytes % 16.3 % (20.0-50.0) L 03/11/19 05:20 Monocytes % 4.2 % (2.0-10.0) 03/11/19 05:20 Eosinophils % 1.2 % (0.0-5.0) 03/11/19 05:20 Basophils % 0.0 % (0.0-2.0) 03/11/19 05:20 Neutrophils (Manual) 89 % (40-80) H 03/09/19 04:15 Lymphocytes 7 % (20-50) L 03/09/19 04:15 Monocytes 4 % (2-10) 03/09/19 04:15 Eosinophils 0 % (0-5) 03/09/19 04:15 Basophils 0 % (0-3) 03/09/19 04:15 Platelet Estimate ADEQUATE (NORMAL) 03/09/19 04:15 Smear Path Review Not Reportable 03/08/19 04:10 PT 9.7 SECONDS (9.5-11.5) 03/07/19 18:10 INR 0.93 (0.5-1.4) 03/07/19 18:10 PTT (Actin FS) 28.8 SECONDS (26.0-38.0) 03/07/19 18:10 Sodium 134 mEq/L (136-145) L 03/11/19 05:20 Potassium 3.4 mEq/L (3.5-5.1) L 03/11/19 05:20 Chloride 97 mEq/L (98-107) L 03/11/19 05:20 Carbon Dioxide 26.4 mEq/L (21.0-31.0) 03/11/19 05:20 Anion Gap 14.0 (7.0-16.0) 03/11/19 05:20 BUN 40 mg/dL (7-25) H 03/11/19 05:20 Creatinine 8.8 mg/dL (0.7-1.3) H* 03/11/19 05:20 Est GFR ( Amer) 9.2 ml/min (>90) 03/11/19 05:20 Est GFR (Non-Af Amer) 7.6 ml/min 03/11/19 05:20 BUN/Creatinine Ratio 4.5 03/11/19 05:20 Glucose 140 mg/dL (70-105) H 03/11/19 05:20 POC Glucose 136 MG/DL (70 - 105) H 03/11/19 15:37 Whole Bld Lactic Acid 1.36 mmol/L (0.60-1.99) 03/07/19 18:10 Calcium 7.8 mg/dL (8.6-10.3) L 03/11/19 05:20 Magnesium 2.4 mg/dL (1.9-2.7) 03/10/19 05:40 Total Bilirubin 0.4 mg/dL (0.3-1.0) 03/10/19 05:40 AST 7 U/L (13-39) L 03/10/19 05:40 ALT 4 U/L (7-52) L 03/10/19 05:40 Alkaline Phosphatase 99 U/L (34-104) 03/10/19 05:40 B-Natriuretic Peptide 873.0 pg/mL (5.0-100.0) H 03/10/19 05:40 Total Protein 6.6 gm/dL (6.0-8.3) 03/10/19 05:40 Albumin 3.4 gm/dL (4.2-5.5) L 03/10/19 05:40 Globulin 3.2 gm/dL 03/10/19 05:40 Albumin/Globulin Ratio 1.1 (1.0-1.8) 03/10/19 05:40 Amylase 28 U/L (29-103) L 03/07/19 18:10 Lipase 16 U/L (11-82) 03/07/19 18:10 Random Vancomycin 15.8 ug/mL (5.0-40.0) 03/11/19 05:20 - Physical Exam Vitals and I&O: Vital Signs Temp 98.0 F 03/11/19 16:00 Pulse 67 03/11/19 16:47 Resp 19 03/11/19 16:00 BP 173/100 03/11/19 16:47 Pulse Ox 99 03/11/19 16:00 Intake & Output 03/10/19 03/11/19 03/11/19 18:59 06:59 18:59 Intake Total 393 283 3833.667 Output Total 2500 0 Balance -1218 789 4207.667 Weight (lbs) 112.491 kg 116.845 kg Intake: Intake, IV Amount 960 524 4811.667 D5-0.9%Ns 1,000 ml @ 40 988.667 mls/hr IV .Q24H MIRANDA Rx#: [id number] Erythromycin Lact 250 mg 100 200 100 In Sodium Chloride 0.9% 100 ml @ 100 mls/hr IV Q8H MIRANDA Rx#:[id number] Piperacillin Sodium/ 150 Tazobact 2.25 gm In Sodium Chloride 0.9% 50 ml @ 100 mls/hr IV Q8HR MIRANDA Rx#:[id number] metroNIDAZOLE 500mg/NS 100 100mL 500 mg In 100 ml @ 100 mls/hr IV Q12HR@0600, 1800 MIRANDA Rx#:[id number] Oral 500 480 Output: Urine 0 Hemodialysis 2500 Other: # Voids 2 # Bowel Movements 1 1 Weight Source Bedscale Bedscale Active Medications: Current Medications Acetaminophen (Tylenol) 650 mg PO Q4H PRN PRN Reason: Mild Pain (1-3) or Fever >101 Stop: 05/06/19 20:59 Last Admin: 03/09/19 21:05 Dose: 650 mg Al Hydrox/Mg Hydrox/Simethicone (Maalox) 30 ml PO Q6H PRN PRN Reason: Dyspepsia Stop: 05/06/19 20:59 Dextrose (D50w) 50 ml IVP PRN PRN PRN Reason: Blood Glucose less than 70 Stop: 05/06/19 21:08 Dextrose (Glutose 40%) 18.75 gm PO PRN PRN PRN Reason: Blood Glucose less than 70 Stop: 05/06/19 21:08 Diphenhydramine HCl (Benadryl 50 Mg/Ml) 50 mg IVP Q8HR PRN PRN Reason: Nausea Stop: 05/08/19 12:59 Glucagon (Glucagen) 1 mg IM PRN PRN PRN Reason: Blood Glucose less than 70 Stop: 05/06/19 21:08 Heparin Sodium (Porcine) (Heparin) 5,000 units SUBQ Q12HR [facility] Stop: 05/06/19 20:59 Last Admin: 03/11/19 08:42 Dose: 5,000 units Hydromorphone HCl (Dilaudid) 1 mg IVP Q4HR PRN PRN Reason: Pain (Severe) Stop: 05/06/19 21:08 Last Admin: 03/11/19 14:34 Dose: 1 mg Piperacillin Sod/Tazobactam (Sod 2.25 gm/ Sodium Chloride) 50 mls @ 100 mls/hr IV Q8HR [facility] Stop: 05/07/19 12:59 Last Admin: 03/11/19 12:04 Dose: 100 mls/hr Erythromycin Lactobionate 250 (mg/ Sodium Chloride) 100 mls @ 100 mls/hr IV Q8H [facility] Stop: 05/08/19 07:59 Last Admin: 03/11/19 16:13 Dose: 100 mls/hr Dextrose/Sodium Chloride (D5-0.9%Ns) 1,000 mls @ 40 mls/hr IV .Q24H [facility] Stop: 05/08/19 12:59 Last Admin: 03/11/19 14:13 Dose: 40 mls/hr Insulin Human Lispro (Humalog Insulin Sliding Scale) 0 units SUBQ ACHS [facility]; Protocol Stop: 05/07/19 07:29 Last Admin: 03/11/19 15:43 Dose: Not Given Lorazepam (Ativan) 1 mg PO Q6HR PRN; Protocol PRN Reason: Restlessness Stop: 05/10/19 12:40 Last Admin: 03/11/19 15:42 Dose: 1 mg Metoprolol Tartrate (Lopressor) 50 mg PO BID [facility] Stop: 05/07/19 08:59 Last Admin: 03/11/19 16:27 Dose: 50 mg Miscellaneous (Clinical Monitoring) 1 ea MC DAILY PRN PRN Reason: RENAL DOSING Stop: 05/07/19 08:08 Ondansetron HCl (Zofran) 4 mg IV Q8H PRN PRN Reason: Nausea / Vomiting Stop: 05/08/19 07:36 Last Admin: 03/11/19 08:42 Dose: 4 mg Sodium Bicarbonate (Sodium Bicarbonate) 650 mg PO BID [facility]; Protocol Stop: 05/07/19 08:59 Last Admin: 03/11/19 16:27 Dose: 650 mg Valsartan (Diovan) 80 mg PO DAILY [facility] Stop: 05/07/19 12:50 Last Admin: 03/11/19 08:41 Dose: 80 mg Vitamin B Complex/Vit C/Folic Acid (Vitamin B Complex W/Vitamin C) 1 tab PO DAILY [facility] Stop: 05/07/19 08:59 Last Admin: 03/11/19 08:41 Dose: 1 tab Vitamin D (Vitamin D) 400 iu PO DAILY [facility] Stop: 05/07/19 08:59 Last Admin: 03/11/19 08:42 Dose: 400 iu Zolpidem Tartrate (Ambien) 10 mg PO HS PRN PRN Reason: Insomnia Stop: 05/06/19 20:59 Last Admin: 03/10/19 23:59 Dose: 10 mg General: Alert, Oriented x3 HEENT: Atraumatic Neck: Supple Cardiovascular: Regular rate Lungs: Clear to auscultation, Normal air movement Abdomen: Bowel sounds, Soft, Tender, no Hepatomegaly, no Splenomegaly, no Distended, no Rebound, no Mass, no Guarding Extremities: no Clubbing Neurological: Normal speech Skin: no Rash Psych/Mental Status: Mental status NL - Procedures Procedures: Procedures Procedure Code Date PERFORMANCE OF URINARY FILTRATION, <6 HRS/DAY [id number] 11/04/18 Assessment/Plan - Problem List Patient Problems: All Active Problems NAUSEA, VOMITING, DIARRHEA WITH EPIGASTR (Acute) - Assessment Assessment: ESRD/DIALYSIS STATUS FACIAL CELLULITIS DIARRHEA ANEMIA W ESRD DM2 W ESRD HTN W ESRD - Plan Plan: HD tomorrow. CONT ABX SUPPORTIVE MGMT Nutritional Asmnt/Malnutr-PDOC - Dietary Evaluation Malnutrition Findings (Please click <Entered> for more info): Nutritional Asmnt/Malnutrition Start: 03/08/19 14: 51 Text: Status: Complete Freq: Protocol: Document 03/08/19 14:51 BILLIE (Rec: 03/08/19 14:56 BILLIE [email or web address]) Nutritional Asmnt/Malnutrition Patient General Information Nutritional Screening Low Risk Diagnosis Abdominal pain, Sepsis Pertinent Medical Hx/Surgical Hx HTN, DM, ESRD (on hemodialysis ) Subjective Information Pt is a 28-year-old male admitted from home on 03/07 c/o upper abdominal pain with intermittent N/V x2 days. Pt has ESRD and is on hemodialysis. Per nurse note ( 03/08), Pt felt nauseas this morning and was given Zofran, no emesis was noted. Spoke with Pt at bedside with family , Pt was having dialysis at this time. Stated he still felt nauseas and just wanted some fruit. Stated he only ate some peaches at breakfast and did not eat any lunch. I brought Pt a fruit cup and Nepro supplement shake. Pt stated he understood his Renal diet and did not need any additional education or information. Will continue to monitor PO intake and provide Nepro shakes with meals. HT: 510 WT: 249 LB (113.18 kg) ABW: 187 LB (84.89kg) BMI: 35.76 (Obese II) GI: nausea, abdominal pain, large, round BM: Not Noted I/O: 50/Not Noted Skin: warm, dry, elastic Wound: nose skin tear with scab Flako: 18 Diet Order: Renal, NCS Estimated Energy Needs: (HD, ABW) 2970 kcals (35 kcals/kg) 102-119 Pro (1.2-1.4g/kg) Fluids: per MD order Current Diet Order/ Nutrition Support Renal, NCS Pertinent Medications Maalox, D50w (PRN), Glutose 40 % (PRN), D5-0.9%ns, Glucagen ( PRN), INS-SS, sodium bicarbonate, Vitamin B Complex w/ Vitamin C, Vitamin D Pertinent Labs 03/08: Hgb/Hct 10.3/30.8, Na 129, BUN/Cr 71/13.2, Glucose 172, Ca 8.4, AST 6, ALT 5, Alk Phos 117, BNP 332, Alb 3.6 POC Glucose (Last 24 hours): 169, 156 03/07: Hgb/Hct 11.3/33.9, Na 127, BUN/Cr 68/12.9, Glucose 147, AST 9, ALT 6, Alk Phos 136, Amylase 28 Nutritional Hx/Data Height 1.78 m Height (Calculated Centimeters) 177.8 Current Weight (lbs) 112.945 kg Weight (Calculated Kilograms) 112.9 Weight (Calculated Grams) 109699.5 [place] Body Weight 166lb (75.45kg) % [place] Body Weight 150 Body Mass Index (BMI) 35.7 Weight Status Obese GI Symptoms GI Symptoms Nausea Last BM Not Noted Skin Integrity/Comment: Warm, dry, elastic Wound: nose skin tear with scab Flako: 18 Current %PO Negligible < 25% Estimated Nutritional Goals BEE in Kcals: Adj wt of IBW Calories/Kcals/Kg 35 Kcals Calculated 2970 Protein: Adj wt of IBW Protein g/k.2-1.4 Protein Calculated 102-119 Fluid: ml per MD order Nutritional Problem 3. Problem Problem Inadequate energy and Pro intake Etiology r/t poor appetite/nausea Signs/Symptoms: aeb Pt self-report 2. Problem Problem Higher calorie and protein needs Etiology r/t Pt Hx ESRD on HD Signs/Symptoms: aeb diet order Renal 80gm Pro 1. Problem Problem Altered nutrition related labs Etiology r/t Hx ESRD and DM Signs/Symptoms: aeb lab results (03/08) Na 129, BUN/Cr 71/13.2, Glucose 172, Ca 8.4, AST 6, ALT 5, Alk Phos 117, Alb 3.6 Malnutrition Related to Morbid Obesity Malnutrition related to morbid obesity No Intervention/Recommendation Comments 1. Continue with Renal, NCS diet as ordered. 2. Continue antihyperglycemic medications for glucose control per MD order. 3. Add Nepro nutritional shake to meals BID until PO intake increases to meet nutritional needs (completed). Expected Outcomes/Goals Expected Outcomes/Goals 1. PO intake to meet 75% of nutritional needs. 2. Monitor PO intake, wt, skin integrity, and nutrition related labs to trend WNL. 3. F/U as high risk in 2-3 days, 03/10-03/11
[2019-03-12] MEDS ORDERED: Heparin Sod 5,000Units/ML 5,000 UNITS/ML VIAL HD SCH
[2019-03-12] MEDS ORDERED: Heparin Sod 1,000 Units/mL 10ml HD SCH
[2019-03-12] MEDS: HYDROmorphone 1 mg/mL 1mL Syr IVP PRN ×4 (02:39→14:21)
[2019-03-12 05:28] LABS: % EOSINOPHILS 1.5 % (0.0-5.0); % LYMPHOCYTES 26.8 % (20.0-50.0); % MONOCYTES 2.9 % (2.0-10.0); % NEUTROPHILS 68.8 % (40.0-80.0); EOSINOPHILE ABSOLUTE 0.2 Th/cmm (0.1-0.4); HEMATOCRIT 29.3 % (41.0-60); HEMOGLOBIN 9.7 gm/dL (12-16); LYMPHOCYTE ABSOLUTE 2.7 Th/cmm (1.5-3.0); MEAN CELL VOLUME 91.5 fl (80-99); MEAN CORPUSCULAR HEMOGLOBIN 30.4 pg (26.0-30.0); MEAN CORPUSCULAR HGB CONC 33.2 pg (28.0-36.0); MONOCYTE ABSOLUTE 0.3 Th/cmm (0.3-1.0); PLATELET COUNT 296 Th/cmm (150-400); RED BLOOD COUNT 3.21 Mil/cmm (4.30-5.70); RED CELL DISTRIBUTION WIDTH 15.3 % (11.5-20.0); WHITE BLOOD COUNT 10.2 Th/cmm (4.8-10.8)
[2019-03-12 06:06] LABS: ALB/GLOB RATIO 1.1 (1.0-1.8); ALBUMIN 3.1 gm/dL (4.2-5.5); ANION GAP 15.8 (7.0-16.0); BILIRUBIN,TOTAL 0.3 mg/dL (0.3-1.0); CALCIUM SERUM 7.8 mg/dL (8.6-10.3); CARBON DIOXIDE 24.7 mEq/L (21.0-31.0); GFR AFRICAN-AMERICAN 7.5 ml/min (>90); GFR NON AFRICAN-AMERICAN 6.2 ml/min; POTASSIUM SERUM 3.5 mEq/L (3.5-5.1); TOTAL PROTEIN,SERUM 5.9 gm/dL (6.0-8.3)
[2019-03-12 06:12] LABS: CREATININE - SERUM 10.5 mg/dL (0.7-1.3)
[2019-03-12] MEDS: INSULIN LISPRO SLIDING SCALE 100 UNITS/ML UNIT SUBQ SCH ×2 (06:47→11:42)
[2019-03-12] MEDS: Vitamin B Complex w/Vitamin C Tab PO SCH (08:22)
[2019-03-12] MEDS: Heparin Sod 5,000Units/ML 5,000 UNITS/ML VIAL SUBQ SCH (08:22)
[2019-03-12] MEDS: SODIUM CHLORIDE 0.9% IV SCH (08:23)
[2019-03-12] MEDS: ERYTHROMYCIN LACT IV SCH (08:23)
--- NOTE | 2019-03-12 13:09 | Discharge Summary ---
DATE OF DISCHARGE: 03/12/2019 CHIEF COMPLAINT: Abdominal pain. FINAL DIAGNOSES: Nasal illness/____ cellulitis, abdominal pain secondary to severe gastroparesis, diabetes, leukocytosis, hypertension, end-stage renal disease, anemia, debilitation. HISTORY: This is a 28-year-old male with multiple medical problems including diabetes, hypertension, renal disease, on hemodialysis, hypertension, admitted from home secondary to nausea and vomiting, worsening for last 2 days. Apparently, he has been dealing with abdominal pain secondary to gastroparesis for many years. PHYSICAL EXAMINATION: VITAL SIGNS: Blood pressure 153/94, respirations 20, pulse 66, temperature 97.4. GENERAL APPEARANCE: Young male, appears chronically ill. NECK: Supple. No mass. LUNGS: Equal breath sounds. HEART: Without appreciable murmur. ABDOMEN: Soft, globular. Positive excoriation with decreased edema, erythema on the left side of the face and nares. Please see picture. EXTREMITIES: No clubbing, cyanosis. Positive AV shunt. HOSPITAL COURSE: The patient was admitted to telemetry, continued on gentle IV hydration and IV antibiotic, previously on vancomycin and Zosyn ____. The patient was referred to Dr. Mark Gaona for Infectious Disease, Dr. Le for renal, Dr. Lopes and Dr. Dewitt for GI and Dr. Olson for psych. The patient hemodialyzed during this admission. The patient was given Benadryl and erythromycin for his gastroparesis as the patient is allergic to REGLAN. The patient's condition has improved. The patient adamantly wanted to go home, does not want to go to a long-term acute care. The patient is not taking full responsibility of his own care. CONDITION ON DISCHARGE: Fair. OVERALL PROGNOSIS: Poor. DISCHARGE INSTRUCTIONS: The patient to continue on p.o. antibiotic as prescribed by Infectious Disease. The patient to follow up with Dr. Vallejo his primary care doctor in ____, Dr. Le and Dr. Underwood for Renal and Dr. Swartz and Dr. Dewitt for GI. The patient is told to return to closest ER if his condition worsens. JOB# [id number]
== END 2019-03-12 15:15 | disposition home or self-care (01) | DRG 871 ==
LOC: ER 16:06 → TELE 21:30
PROVIDERS: ADMIT Internal Medicine; ATTEND Internal Medicine
PROC: 5A1D70Z Performance of Urinary Filtration, Intermittent, Less than 6 Hours Per Day (ICD-10-PCS; principal; 2019-03-09)
PROC: 5A1D70Z Performance of Urinary Filtration, Intermittent, Less than 6 Hours Per Day (ICD-10-PCS; 2019-03-11)
DX: A41.9 Sepsis, unspecified organism (principal); N18.6 End stage renal disease; I13.2 Hypertensive heart and chronic kidney disease with heart failure and with stage 5 chronic kidney disease, or end stage renal disease; L03.211 Cellulitis of face; R10.9 Unspecified abdominal pain; E11.22 Type 2 diabetes mellitus with diabetic chronic kidney disease; E66.9 Obesity, unspecified; G89.29 Other chronic pain; H54.8 Legal blindness, as defined in USA; E11.39 Type 2 diabetes mellitus with other diabetic ophthalmic complication; D63.1 Anemia in chronic kidney disease; E11.43 Type 2 diabetes mellitus with diabetic autonomic (poly)neuropathy; K31.84 Gastroparesis; R19.7 Diarrhea, unspecified; Z68.38 Body mass index [BMI] 38.0-38.9, adult; Z99.2 Dependence on renal dialysis; Z83.3 Family history of diabetes mellitus; Z88.8 Allergy status to other drugs, medicaments and biological substances
CPT/HCPCS: 36415-UA; 70486-TC; 80048-TC; 80053-TC; 80202-TC; 82150-TC; 82948-90; 83036-90; 83605; 83690-TC; 83735-TC; 83880-TC; 85007-TC; 85025-TC; 85610-TC; 90799; 94760; 96375; 96376; J0696; J1170; J1200; J1364; J1644; J1956; J2060; J2405; J2543; J3370; J3490; J7030; J7040; J7042; Z7610